=== PATIENT | male | born 1980 | race African-American/Black ===

== ENCOUNTER 2017-09-21 13:45 | Observation (INO) | payer OTHER ==
--- NOTE | 2017-09-21 14:13 | ED ---
General Adult HPI - General Source: patient, RN notes reviewed Mode of arrival: ambulatory Limitations: no limitations <Jaya Lopez - Last Filed: 09/21/17 15:26> <Pieter Delarosa - Last Filed: 09/21/17 21:52> - General Chief complaint: Recheck/Abnormal Lab/Rx Stated complaint: Dialysis Treatment Time Seen by Provider: 09/21/17 14:02 - History of Present Illness Initial comments: This a 37 show male presents emergency Department chief complaint of needing dialysis. Patient has not had dialysis in 6 days. Patient states she[facility] been going [facility] since being [facility]. Patient states that he just received a phone call from a social organization professor stating that the dialysis center has been trying to contact him for dialysis. Patient states he was advised to the hospital for dialysis today and outpatient resources. Patient states he feels fine is no specific complaints. He has been on dialysis for 12 years. Patient states he has a port on the right side of his chest. Patient denies any chest pain, shortness breath, headache, dizziness, nausea, vomiting. (Jaya Lopez) - Related Data Home Medications Medication Instructions Recorded Confirmed Cinacalcet HCl [Sensipar] 60 mg PO HS 09/21/17 09/21/17 Folic Acid-Vit B Complex-Vit C 1 cap PO DAILY 09/21/17 09/21/17 [Nephrocaps] Sevelamer [Renvela] 3,200 - 4,000 mg PO AC-TID 09/21/17 09/21/17 Allergies Allergy/AdvReac Type Severity Reaction Status Date / Time No Known Allergies Allergy Verified 09/21/17 14:06 Review of Systems ROS Other: All systems not noted in ROS Statement are negative. <Jaya Lopez - Last Filed: 09/21/17 15:26> ROS Other: All systems not noted in ROS Statement are negative. <Pieter Delarosa - Last Filed: 09/21/17 21:52> ROS Statement: Those systems with pertinent positive or pertinent negative responses have been documented in the HPI. Past Medical History Past Medical History: Dialysis, Hypertension, Renal Disease History of Any Multi-Drug Resistant Organisms: None Reported Additional Past Surgical History / Comment(s): fistula Past Psychological History: No Psychological Hx Reported Smoking Status: Current every day smoker Past Alcohol Use History: None Reported Past Drug Use History: None Reported <JohnJaya Slaughter - Last Filed: 09/21/17 15:26> - Past Family History Mother Additional Family Medical History / Comment(s): bronchitis Father Family Medical History: Hypertension <Pieter Delarosa - Last Filed: 09/21/17 21:52> General Exam Limitations: no limitations General appearance: alert, in no apparent distress Head exam: Present: atraumatic, normocephalic, normal inspection ENT exam: Present: normal exam, mucous membranes moist Neck exam: Present: normal inspection. Absent: tenderness, meningismus, lymphadenopathy Respiratory exam: Present: normal lung sounds bilaterally. Absent: respiratory distress, wheezes, rales, rhonchi, stridor Cardiovascular Exam: Present: regular rate, normal rhythm, normal heart sounds. Absent: systolic murmur, diastolic murmur, rubs, gallop, clicks Neurological exam: Present: alert, oriented X3, CN II-XII intact Skin exam: Present: warm, dry, intact, normal color. Absent: rash <Jaya Lopez - Last Filed: 09/21/17 15:26> Vital Signs 09/21/17 09/21/17 13:56 16:20 Temperature 97.8 F 98.0 F Pulse Rate 63 52 L Respiratory 16 18 Rate Blood Pressure 158/101 141/103 O2 Sat by Pulse 99 100 Oximetry Medical Decision Making - Lab Data Result diagrams: 09/21/17 14:21 09/21/17 14:21 <Jaya Lopez - Last Filed: 09/21/17 15:26> - Lab Data Result diagrams: 09/21/17 14:21 09/21/17 14:21 <Pieter Delarosa - Last Filed: 09/21/17 21:52> - Medical Decision Making 31 sexual male with end-stage renal disease. Patient is not hemodialysis in 1 week. Potassium is elevated 6.3. Patient is not hypoxic and not requiring any supplemental oxygen. He will be admitted for urgent hemodialysis. Case discussed with Dr. Leone who will arrange hemodialysis. (Pieter Delarosa) - Lab Data Lab Results 09/21/17 09/21/17 Range/Units 14:21 14:21 WBC 3.3 L (3.8-10.6) k/uL RBC 4.48 (4.30-5.90) m/uL Hgb 14.7 (13.0-17.5) gm/dL Hct 45.0 (39.0-53.0) % MCV 100.4 H (80.0-100.0) fL MCH 32.8 (25.0-35.0) pg MCHC 32.7 (31.0-37.0) g/dL RDW 14.9 (11.5-15.5) % Plt Count 152 (150-450) k/uL Neutrophils % 65 % Lymphocytes % 23 % Monocytes % 6 % Eosinophils % 4 % Basophils % 1 % Neutrophils # 2.1 (1.3-7.7) k/uL Lymphocytes # 0.8 L (1.0-4.8) k/uL Monocytes # 0.2 (0-1.0) k/uL Eosinophils # 0.1 (0-0.7) k/uL Basophils # 0.0 (0-0.2) k/uL Macrocytosis Slight Sodium 140 (137-145) mmol/L Potassium 6.3 H* (3.5-5.1) mmol/L Chloride 102 (98-107) mmol/L Carbon Dioxide 13 L (22-30) mmol/L Anion Gap 25 mmol/L BUN 99 H* (9-20) mg/dL Creatinine 35.72 H* (0.66-1.25) mg/dL Est GFR (CKD-EPI)AfAm 1 (>60 ml/min/1.73 sqM) Est GFR (CKD-EPI)NonAf 1 (>60 ml/min/1.73 sqM) Glucose 83 (74-99) mg/dL Calcium 9.2 (8.4-10.2) mg/dL Phosphorus 6.4 H (2.5-4.5) mg/dL Magnesium 4.6 H (1.6-2.3) mg/dL Total Bilirubin 0.5 (0.2-1.3) mg/dL AST 17 (17-59) U/L ALT 23 (21-72) U/L Alkaline Phosphatase 123 (38-126) U/L Total Protein 6.8 (6.3-8.2) g/dL Albumin 4.3 (3.5-5.0) g/dL Disposition <Dedoe,Jaya M - Last Filed: 09/21/17 15:26> <Pieter Delarosa - Last Filed: 09/21/17 21:52> Clinical Impression: Renal failure, Hyperkalemia, Dialysis patient, noncompliant Disposition: ADMITTED IP TO THIS [facility] Condition: Stable
[2017-09-21 14:29] LABS: Basophils % (A) 1 %; Eosinophils # (A) 0.1 k/uL (0-0.7); Eosinophils % (A) 4 %; HGB 14.7 gm/dL (13.0-17.5); Lymphocytes # (A) 0.8 k/uL (1.0-4.8); Lymphocytes % (A) 23 %; MCH 32.8 pg (25.0-35.0); MCHC 32.7 g/dL (31.0-37.0); MCV 100.4 fL (80.0-100.0); Macrocytosis Slight; Monocytes # (A) 0.2 k/uL (0-1.0); Monocytes % (A) 6 %; Neutrophils # (A) 2.1 k/uL (1.3-7.7); Neutrophils % (A) 65 %; Platelet Count 152 k/uL (150-450); RBC 4.48 m/uL (4.30-5.90); RDW 14.9 % (11.5-15.5); WBC 3.3 k/uL (3.8-10.6)
[2017-09-21 14:43] LABS: Albumin 4.3 g/dL (3.5-5.0); Calcium 9.2 mg/dL (8.4-10.2); Magnesium 4.6 mg/dL (1.6-2.3); Phosphorus 6.4 mg/dL (2.5-4.5); Total Bilirubin 0.5 mg/dL (0.2-1.3); Total Protein 6.8 g/dL (6.3-8.2)
[2017-09-21 15:18] LABS: Potassium 6.3 mmol/L (3.5-5.1)
[2017-09-21 16:22] VITALS: RESP 18
[2017-09-21 18:48] VITALS: BP 149/94; PULSE 51; TEMP 97.5
[2017-09-21] MEDS ORDERED: CINACALCET 30 MG TAB PO SCH (21:00)
[2017-09-22] MEDS ORDERED: SEVELAMER 800 MG TAB PO SCH (07:30)
[2017-09-22] MEDS ORDERED: FOLIC ACID-VIT B COMPLEX-VIT C 1 CAP PO SCH (09:00)
--- NOTE | 2017-09-22 13:35 | HP ---
HISTORY AND PHYSICAL DATE OF ADMISSION: 09/21/2017 CHIEF COMPLAINT: Chronic renal failure and hypertension. HISTORY OF PRESENT ILLNESS: This is the first known admission for this 37-year-old -[place] male. He recently got out of retirement. It sounds as though he was incarcerated in [place] and going to [facility] for dialysis. He showed up at our emergency room for dialysis and had not been dialyzed for 6 or 7 days. There is not a good answer as to why he came to this institution. The etiology of his renal failure is hypertension. REVIEW OF SYSTEMS: He denies neurologic problems, change in vision or hearing, chest pain, shortness of breath, abdominal pain, nausea, vomiting, hematemesis, melena, hematochezia, jaundice, dysuria, pruritus, diabetes, etc. Past medical history, family history, and personal and social histories are all otherwise unremarkable or noncontributory. He is on: 1. Sevelamer 3200 up to 4000 mg 3 times a day. 2. Cinacalcet 60 mg at bedtime. 3. Folic acid. He is NOT ALLERGIC TO ANY MEDICATIONS. The only surgery he has had was development of a shunt in his left arm. He does not smoke. He denies use of drugs or alcohol. In the emergency room his potassium was 6.3. BUN was 99 with a creatinine of 35.72. PHYSICAL EXAMINATION: Blood pressure 158/101 with a pulse of 78, respirations of 35, and he is afebrile. In general he appeared to be slender, in no acute distress. Skin color is normal. Skin is warm and dry. Lymph nodes are not enlarged. Head, ears, eyes, nose, mouth and throat were normal. Neck veins were not distended. Chest was clear to auscultation and percussion. He had a dialysis catheter in the right upper chest. Cardiac exam was normal, with no murmurs or extra sounds. No rubs. Abdomen was soft, nontender. Extremities were normal except for the shunt in the left arm. Neurologically he was intact. IMPRESSION: 1. End-stage renal disease. 2. Hypertension. 3. Hyperkalemia. PLAN: 1. Bed rest. 2. IV fluids. 3. Nephrology consult. 4. Dialysis. MMODL / IJN: [id number] /
--- NOTE | 2017-09-22 17:26 | DS ---
DISCHARGE SUMMARY CHIEF COMPLAINT: Renal failure. HISTORY OF PRESENT ILLNESS AND PHYSICAL EXAMINATION: Details of this man's history and physical can be found in the initial workup. LABORATORY STUDIES: While he was in the hospital he had laboratory studies, details of which can be found in the laboratory section of his chart. COURSE IN THE HOSPITAL: After admission he was placed on bedrest and started on intravenous fluids and was taken to dialysis. After dialysis he signed himself out AGAINST MEDICAL ADVICE. FINAL DIAGNOSES: 1. End-stage renal disease, on dialysis. 2. Hypertension. OPERATIONS: None. CONSULTATIONS: Nephrology. MMODL / IJN: [id number] /
== END 2017-09-21 21:28 | disposition left against medical advice (07) ==
LOC: EC 13:45 → INTOOBSV 15:41 → 6SEL 15:41 → UNDODISIN 21:28
PROVIDERS: ADMIT Family Medicine; ATTEND Family Medicine
PROC: 5A1D70Z Performance of Urinary Filtration, Intermittent, Less than 6 Hours Per Day (ICD-10-PCS; principal; 2017-09-21)
DX: E87.5 Hyperkalemia (principal); N18.6 End stage renal disease; Z91.15 Patient's noncompliance with renal dialysis; I12.0 Hypertensive chronic kidney disease with stage 5 chronic kidney disease or end stage renal disease; F17.200 Nicotine dependence, unspecified, uncomplicated; Z99.2 Dependence on renal dialysis; Z82.49 Family history of ischemic heart disease and other diseases of the circulatory system; Z82.5 Family history of asthma and other chronic lower respiratory diseases; Z79.899 Other long term (current) drug therapy; Z53.21 Procedure and treatment not carried out due to patient leaving prior to being seen by health care provider; Z95.828 Presence of other vascular implants and grafts
CPT/HCPCS: 90970; 99284; 36415; 80053; 83735; 84100; 85025; 86706; 87340; G0378; 90935

== ENCOUNTER 2017-09-27 08:44 | Observation (INO) | payer OTHER ==
--- NOTE | 2017-09-27 09:38 | ED ---
Recheck HPI - General Chief Complaint: Recheck/Abnormal Lab/Rx Stated Complaint: needs emergency Dialysis Time Seen by Provider: 09/27/17 09:07 Source: patient, RN notes reviewed Mode of arrival: ambulatory Limitations: no limitations - History of Present Illness Initial Comments: 37 year male presents emergency Department with chief complaint of needing dialysis. Patient has been on clams with dialysis he was admitted one week ago for dialysis. He has not received his sense and discharge. He states that he try to go to the clinic to have it done but they're waiting on his hepatitis. Patient states that he feels like he has fluid in his extremities denies any chest pain or shortness breath. Patient states that he otherwise feels normal. does not have a current primary care physician. Patient has been on dialysis for 12 years. Patient states that it was related to hypertension. - Related Data Home Medications Medication Instructions Recorded Confirmed Cinacalcet HCl [Sensipar] 60 mg PO HS 09/21/17 09/27/17 Folic Acid-Vit B Complex-Vit C 1 cap PO DAILY 09/21/17 09/27/17 [Nephrocaps] Sevelamer [Renvela] 3,200 - 4,000 mg PO AC-TID 09/21/17 09/27/17 Allergies Allergy/AdvReac Type Severity Reaction Status Date / Time No Known Allergies Allergy Verified 09/27/17 09:31 Review of Systems ROS Statement: Those systems with pertinent positive or pertinent negative responses have been documented in the HPI. ROS Other: All systems not noted in ROS Statement are negative. Past Medical History Past Medical History: Dialysis, Hypertension, Renal Disease History of Any Multi-Drug Resistant Organisms: None Reported Additional Past Surgical History / Comment(s): fistula/graft lt arm, surgury on kidneys as a child pt not sure exactly what was done, port rt chest Past Anesthesia/Blood Transfusion Reactions: No Reported Reaction Past Psychological History: No Psychological Hx Reported Smoking Status: Current every day smoker Past Alcohol Use History: None Reported Past Drug Use History: Marijuana - Past Family History Mother Additional Family Medical History / Comment(s): bronchitis Father Family Medical History: Hypertension General Exam Limitations: no limitations General appearance: alert, in no apparent distress Head exam: Present: atraumatic, normocephalic, normal inspection Neck exam: Present: normal inspection. Absent: tenderness, meningismus, lymphadenopathy Respiratory exam: Present: normal lung sounds bilaterally. Absent: respiratory distress, wheezes, rales, rhonchi, stridor Cardiovascular Exam: Present: regular rate, normal rhythm, normal heart sounds. Absent: systolic murmur, diastolic murmur, rubs, gallop, clicks GI/Abdominal exam: Present: soft, normal bowel sounds. Absent: distended, tenderness, guarding, rebound, rigid Course Vital Signs 09/27/17 09:02 Temperature 98.2 F Pulse Rate 65 Respiratory 16 Rate Blood Pressure 145/97 O2 Sat by Pulse 100 Oximetry Medical Decision Making - Lab Data Result diagrams: 09/27/17 09:00 09/27/17 09:00 Lab Results 09/27/17 09/27/17 Range/Units 09:00 09:00 WBC 3.7 L (3.8-10.6) k/uL RBC 4.12 L (4.30-5.90) m/uL Hgb 13.3 (13.0-17.5) gm/dL Hct 41.5 (39.0-53.0) % MCV 100.7 H (80.0-100.0) fL MCH 32.3 (25.0-35.0) pg MCHC 32.0 (31.0-37.0) g/dL RDW 15.2 (11.5-15.5) % Plt Count 128 L (150-450) k/uL Neutrophils % 68 % Lymphocytes % 21 % Monocytes % 6 % Eosinophils % 3 % Basophils % 0 % Neutrophils # 2.5 (1.3-7.7) k/uL Lymphocytes # 0.8 L (1.0-4.8) k/uL Monocytes # 0.2 (0-1.0) k/uL Eosinophils # 0.1 (0-0.7) k/uL Basophils # 0.0 (0-0.2) k/uL Macrocytosis Slight Sodium 142 (137-145) mmol/L Potassium 6.4 H* (3.5-5.1) mmol/L Chloride 103 (98-107) mmol/L Carbon Dioxide 18 L (22-30) mmol/L Anion Gap 21 mmol/L BUN 119 H* (9-20) mg/dL Creatinine 33.09 H* (0.66-1.25) mg/dL Est GFR (CKD-EPI)AfAm 2 (>60 ml/min/1.73 sqM) Est GFR (CKD-EPI)NonAf 1 (>60 ml/min/1.73 sqM) Glucose 78 (74-99) mg/dL Calcium 7.3 L (8.4-10.2) mg/dL Phosphorus 7.7 H (2.5-4.5) mg/dL Magnesium 3.9 H (1.6-2.3) mg/dL Total Bilirubin 0.3 (0.2-1.3) mg/dL AST 19 (17-59) U/L ALT 23 (21-72) U/L Alkaline Phosphatase 95 (38-126) U/L Total Protein 5.9 L (6.3-8.2) g/dL Albumin 3.6 (3.5-5.0) g/dL Disposition Clinical Impression: Renal failure, Hyperkalemia, Dialysis patient, noncompliant Disposition: ADMITTED IP TO THIS [facility] Condition: Stable Referrals: None,Stated [Primary Care Provider] - 1-2 days
[2017-09-27 10:18] LABS: Basophils % (A) 0 %; Eosinophils # (A) 0.1 k/uL (0-0.7); Eosinophils % (A) 3 %; HCT 41.5 % (39.0-53.0); HGB 13.3 gm/dL (13.0-17.5); Lymphocytes # (A) 0.8 k/uL (1.0-4.8); Lymphocytes % (A) 21 %; MCH 32.3 pg (25.0-35.0); MCV 100.7 fL (80.0-100.0); Macrocytosis Slight; Mean Platelet Volume 8.4; Monocytes # (A) 0.2 k/uL (0-1.0); Monocytes % (A) 6 %; Neutrophils # (A) 2.5 k/uL (1.3-7.7); Neutrophils % (A) 68 %; Platelet Count 128 k/uL (150-450); RBC 4.12 m/uL (4.30-5.90); RDW 15.2 % (11.5-15.5); WBC 3.7 k/uL (3.8-10.6)
[2017-09-27 10:46] LABS: Albumin 3.6 g/dL (3.5-5.0); Calcium 7.3 mg/dL (8.4-10.2); Magnesium 3.9 mg/dL (1.6-2.3); Phosphorus 7.7 mg/dL (2.5-4.5); Total Bilirubin 0.3 mg/dL (0.2-1.3); Total Protein 5.9 g/dL (6.3-8.2)
[2017-09-27 11:16] LABS: Potassium 6.4 mmol/L (3.5-5.1)
[2017-09-27 12:00] VITALS: RESP 18
[2017-09-27] MEDS ORDERED: INSULIN REGULAR 100 UNIT/ML VIAL IV ONE (14:12)
[2017-09-27] MEDS ORDERED: CALCIUM CHLORIDE 1,000 MG in SODIUM CHLORIDE 0.9% 100 ML IVPB STA (14:15)
[2017-09-27] MEDS ORDERED: DEXTROSE 50%-WATER 50 ML SYRINGE IVP STA (14:15)
[2017-09-27 14:43] VITALS: BP 141/84; PULSE 61; TEMP 98.6
[2017-09-27] MEDS ORDERED: HEPARIN SODIUM,PORCINE 5,000 UNIT/ML 1 ML VIAL SQ SCH (16:00)
[2017-09-27] MEDS ORDERED: SEVELAMER 800 MG TAB PO SCH (17:30)
[2017-09-27] MEDS ORDERED: CINACALCET 30 MG TAB PO SCH (21:00)
--- NOTE | 2017-09-27 23:46 | P.HPIM ---
History of Present Illness H&P Date: 09/27/17 Chief Complaint: Missed dialysis 37 year male with a known history of hypertension, ESRD on hemodialysis, last dialysis on 09/21/2017 as well as nicotine addiction presents emergency Department with chief complaint of needing dialysis. He states that he try to go to the clinic to have it done but they're waiting on his hepatitis. Patient states that he feels like he has fluid in his extremities denies any chest pain or shortness breath. Patient states that he otherwise feels normal. Patient does not have a current primary care physician. Patient has been on dialysis for 12 years. Patient states that it was related to hypertension. Patient is trying to set up his outpatient dialysis. Otherwise no fever no chills. No chest pain. No nausea vomiting or abdominal pain. Patient does not make urine at this time. Patient was found to have hyperkalemia at 6.4 and elevated BUN and creatinine Review of Systems Constitutional: Patient denies any fever or chills . No generalized weakness or weight loss. Abdomen: Patient denied nausea vomiting and diarrhea and abdominal pain. Cardiovascular: Patient denies any chest pain or short of breath no palpitations. Respiratory: patient denied any cough is from production. No shortness of breath Neurologic: Patient denied any numbness or tingling headache. Musculoskeletal: Patient denies any complaints of joint swelling or deformity. Skin: Negative Psychiatric: Negative Endocrine: No heat or cold intolerance. No recent weight gain. Genitourinary: No dysuria or hematuria. All other 14 point ROS negative except the above Past Medical History Past Medical History: Dialysis, Hypertension, Renal Disease Additional Past Medical History / Comment(s): Pt recently admitted to [facility] on 09/21/17 with ESRD, hyperkalemia. Other Hx: Pt states he last had dialysis when hospitalized here at [facility] about 1 week ago. He states that the "place" where he ususally goes for dialysis had not been able to do it because they are waiting for hepatitis labwork. He states he was going to [facility] for his dialysis but lately just going hospital to hospital. History of Any Multi-Drug Resistant Organisms: None Reported Additional Past Surgical History / Comment(s): fistula/graft lt arm, surgury on kidneys as an infant pt not sure exactly what was done, port rt chest placed when his fistula wasn't working. Past Anesthesia/Blood Transfusion Reactions: No Reported Reaction Smoking Status: Current every day smoker - Past Family History Mother Additional Family Medical History / Comment(s): bronchitis Father Family Medical History: Hypertension Medications and Allergies Home Medications Medication Instructions Recorded Confirmed Type Cinacalcet HCl [Sensipar] 60 mg PO HS 09/21/17 09/27/17 History Folic Acid-Vit B Complex-Vit C 1 cap PO DAILY 09/21/17 09/27/17 History [Nephrocaps] Sevelamer [Renvela] 3,200 - 4,000 mg PO AC-TID 09/21/17 09/27/17 History Allergies Allergy/AdvReac Type Severity Reaction Status Date / Time No Known Allergies Allergy Verified 09/27/17 09:31 Physical Exam Vitals: Vital Signs Temp Pulse Pulse Resp BP BP Pulse Ox 09/27/17 14:42 98.6 F 61 18 141/84 98 09/27/17 13:15 98.7 F 57 L 18 143/89 99 09/27/17 12:48 60 18 132/93 100 09/27/17 11:59 60 18 142/94 100 09/27/17 09:02 98.2 F 65 16 145/97 100 Intake and Output 09/27/17 09/27/17 09/27/17 06:59 14:59 22:59 Output Total 0 Balance 0 Output: Urine 0 Other: # Bowel Movements 0 Weight 84 kg PHYSICAL EXAMINATION: Patient is lying in the bed comfortably, no acute distress, awake alert and oriented.. HEENT: Normocephalic. Neck is supple. Pupils reactive. Nostrils clear. Oral cavity is moist. Ears reveal no drainage. Neck reveals no JVD, carotid bruits, or thyromegaly. CHEST EXAMINATION: Trachea is central. Symmetrical expansion. Lung zambrano clear to auscultation and percussion. CARDIAC: Normal S1, S2 with no gallops. No murmurs ABDOMEN: Soft. Bowel sounds normal. No organomegaly. No abdominal bruits. Extremities: Trace pedal edema. No clubbing or cyanosis Neurologically awake, alert, oriented x3 with well-coordinated movements. No focal deficits noted Skin: No rash or skin lesions. Psychiatric: Coperative. Nonsuicidal Musculoskeletal: No joint swelling or deformity. Normal range of motion. Results CBC & Chem 7: 09/27/17 09:00 09/27/17 09:00 Labs: Abnormal Lab Results - Last 24 Hours (Table) 09/27/17 09/27/17 Range/Units 09:00 09:00 WBC 3.7 L (3.8-10.6) k/uL RBC 4.12 L (4.30-5.90) m/uL MCV 100.7 H (80.0-100.0) fL Plt Count 128 L (150-450) k/uL Lymphocytes # 0.8 L (1.0-4.8) k/uL Potassium 6.4 H* (3.5-5.1) mmol/L Carbon Dioxide 18 L (22-30) mmol/L BUN 119 H* (9-20) mg/dL Creatinine 33.09 H* (0.66-1.25) mg/dL Calcium 7.3 L (8.4-10.2) mg/dL Phosphorus 7.7 H (2.5-4.5) mg/dL Magnesium 3.9 H (1.6-2.3) mg/dL Total Protein 5.9 L (6.3-8.2) g/dL Thrombosis Risk Factor Assmnt - DVT/VTE Prophylaxis DVT/VTE Prophylaxis: Pharmacologic Prophylaxis ordered - Choose All That Apply Any of the Below Risk Factors Present?: No Other Risk Factors: No Other congenital or acquired thrombophilia - If yes, enter type in comment: No Thrombosis Risk Factor Assessment Level: Very Low Risk Assessment and Plan Assessment: Hyperkalemia due to missed hemodialysis ESRD on hemodialysis. Last dialysis on 09/21/2017 Hypertensive kidney disease DVT prophylaxis Nicotine addiction Plan: Patient was given calcium gluconate while in the ER. Patient is currently undergoing emergent hemodialysis. Nephrology was consulted. Social work and assistant case manager will be consulted for outpatient hemodialysis set up. Further recommendations based on the clinical course. Time with Patient: Greater than 30
--- NOTE | 2017-09-27 23:47 | P.DS ---
Providers Date of admission: 09/27/17 11:48 Expected date of discharge: 09/27/17 Attending physician: Peng Sheriff Consults: 09/27/17 11:48 Consult Physician Stat Consulting Provider: Darnell Koroma Consult Reason/Comments: Renal failure needs dialysis Do you want consulting provider notified?: Yes Primary care physician: Stated None Hospital Course: Hyperkalemia due to missed hemodialysis ESRD on hemodialysis. Last dialysis on 09/21/2017 Hypertensive kidney disease DVT prophylaxis Nicotine addiction 37 year male with a known history of hypertension, ESRD on hemodialysis, last dialysis on 09/21/2017 as well as nicotine addiction presents emergency Department with chief complaint of needing dialysis. He states that he try to go to the clinic to have it done but they're waiting on his hepatitis. Patient states that he feels like he has fluid in his extremities denies any chest pain or shortness breath. Patient states that he otherwise feels normal. Patient does not have a current primary care physician. Patient has been on dialysis for 12 years. Patient states that it was related to hypertension. Patient is trying to set up his outpatient dialysis. Otherwise no fever no chills. No chest pain. No nausea vomiting or abdominal pain. Patient does not make urine at this time. Patient was found to have hyperkalemia at 6.4 and elevated BUN and creatinine. Patient was given calcium gluconate while in the ER. Patient had emergent hemodialysis. Nephrology was consulted. Social work and patient case coordinator will be consulted for outpatient hemodialysis set up. Patient left AGAINST MEDICAL ADVICE after hemodialysis. Patient Condition at Discharge: Stable Plan - Discharge Summary Discharge Rx Participant: No New Discharge Prescriptions: No Action Sevelamer [Renvela] 3,200 - 4,000 mg PO AC-TID Folic Acid-Vit B Complex-Vit C [Nephrocaps] 1 cap PO DAILY Cinacalcet HCl [Sensipar] 60 mg PO HS Discharge Medication List Cinacalcet HCl [Sensipar] 60 mg PO HS 09/21/17 [History] Folic Acid-Vit B Complex-Vit C [Nephrocaps] 1 cap PO DAILY 09/21/17 [History] Sevelamer [Renvela] 3,200 - 4,000 mg PO AC-TID 09/21/17 [History] Follow up Appointment(s)/Referral(s): None,Stated [Primary Care Provider] - 1-2 days Discharge Disposition: Left Against Medical Advice
[2017-09-28] MEDS ORDERED: FOLIC ACID-VIT B COMPLEX-VIT C 1 CAP PO SCH (09:00)
== END 2017-09-27 18:51 | disposition left against medical advice (07) ==
LOC: EC 08:44 → 4MS4W 11:48 → INTOOBSV 11:48 → UNDODISIN 18:51
PROVIDERS: ADMIT Hospitalist; ATTEND Hospitalist
PROC: 5A1D70Z Performance of Urinary Filtration, Intermittent, Less than 6 Hours Per Day (ICD-10-PCS; principal; 2017-09-27)
DX: E87.5 Hyperkalemia (principal); N18.6 End stage renal disease; I12.0 Hypertensive chronic kidney disease with stage 5 chronic kidney disease or end stage renal disease; F17.200 Nicotine dependence, unspecified, uncomplicated; K75.9 Inflammatory liver disease, unspecified; Z82.49 Family history of ischemic heart disease and other diseases of the circulatory system; Z82.5 Family history of asthma and other chronic lower respiratory diseases; Z91.15 Patient's noncompliance with renal dialysis; Z99.2 Dependence on renal dialysis; Z79.899 Other long term (current) drug therapy; Z53.21 Procedure and treatment not carried out due to patient leaving prior to being seen by health care provider
CPT/HCPCS: 90970; 96365; 96375; 99284; 36415; 80053; 83735; 84100; 85025; G0378; 90935

== ENCOUNTER 2017-09-30 11:08 | Inpatient (IN) | payer OTHER ==
[2017-09-30 12:38] LABS: Basophils % (A) 0 %; Eosinophils # (A) 0.2 k/uL (0-0.7); Eosinophils % (A) 5 %; HGB 12.9 gm/dL (13.0-17.5); Lymphocytes # (A) 0.8 k/uL (1.0-4.8); Lymphocytes % (A) 18 %; MCH 32.1 pg (25.0-35.0); MCHC 31.5 g/dL (31.0-37.0); Macrocytosis Slight; Mean Platelet Volume 8.3; Monocytes # (A) 0.3 k/uL (0-1.0); Monocytes % (A) 6 %; Neutrophils # (A) 3.1 k/uL (1.3-7.7); Neutrophils % (A) 69 %; Platelet Count 105 k/uL (150-450); RBC 4.02 m/uL (4.30-5.90); RDW 15.2 % (11.5-15.5); WBC 4.5 k/uL (3.8-10.6)
[2017-09-30 12:46] LABS: Albumin 3.6 g/dL (3.5-5.0); Calcium 7.3 mg/dL (8.4-10.2); Total Bilirubin 0.3 mg/dL (0.2-1.3); Total Protein 5.9 g/dL (6.3-8.2)
--- NOTE | 2017-09-30 12:47 | XR ---
EXAMINATION TYPE: XR chest 2V DATE OF EXAM: 09/30/2017 COMPARISON: NONE TECHNIQUE: PA and lateral views submitted. HISTORY: Shortness of breath FINDINGS: Right-sided dialysis catheter the tip overlying the right atrium. No pneumothorax. Vascular stents on the left noted. Tiny bilateral effusion suspected with mild central interstitial v enous congestion. No focal pneumonia. Heart size within normal limits. IMPRESSION: 1. Tiny bilateral pleural effusions. Correlate for mild central venous congestion.
--- NOTE | 2017-09-30 13:51 | ED ---
General Adult HPI - General Chief complaint: Recheck/Abnormal Lab/Rx Stated complaint: Fluid Retention Time Seen by Provider: 09/30/17 11:28 Source: patient Mode of arrival: ambulatory Limitations: no limitations - History of Present Illness Initial comments: 37 years old male comes in with a renal failure he feels that he has a lot of for fluid retention he is requesting dialysis he does get dialysis 3 times a week for lost time he had a dialysis that was on he feels he is retaining a lot of fluids and is complaining that he has difficulty breathing. He denies any fever no chills no headaches no neck stiffness no chest pain he is short-winded no abdominal pain no frequency urgency dysuria - Related Data Home Medications Medication Instructions Recorded Confirmed Cinacalcet HCl [Sensipar] 60 mg PO HS 09/21/17 09/30/17 Folic Acid-Vit B Complex-Vit C 1 cap PO DAILY 09/21/17 09/30/17 [Nephrocaps] Sevelamer [Renvela] 3,200 - 4,000 mg PO AC-TID 09/21/17 09/30/17 Allergies Allergy/AdvReac Type Severity Reaction Status Date / Time No Known Allergies Allergy Verified 09/30/17 12:25 Review of Systems ROS Statement: Those systems with pertinent positive or pertinent negative responses have been documented in the HPI. ROS Other: All systems not noted in ROS Statement are negative. Past Medical History Past Medical History: Dialysis, Hypertension, Renal Disease Additional Past Medical History / Comment(s): Pt recently admitted to [facility] on 09/21/17 with ESRD, hyperkalemia. Other Hx: Pt states he last had dialysis when hospitalized here at [facility] about 1 week ago. He states that the "place" where he ususally goes for dialysis had not been able to do it because they are waiting for hepatitis labwork. He states he was going to [facility] for his dialysis but lately just going hospital to hospital. History of Any Multi-Drug Resistant Organisms: None Reported Additional Past Surgical History / Comment(s): fistula/graft lt arm, surgery on kidneys as an infant pt not sure exactly what was done, port rt chest placed when his fistula wasn't working. Past Anesthesia/Blood Transfusion Reactions: No Reported Reaction Past Psychological History: No Psychological Hx Reported Smoking Status: Current every day smoker - Past Family History Mother Additional Family Medical History / Comment(s): bronchitis Father Family Medical History: Hypertension General Exam - General Exam Comments Initial Comments: General: The patient is awake and alert, in no distress, and does not appear acutely ill. Skin: Skin is warm and dry and no rashes or lesions are noted. Eye: Pupils are equal, round and reactive to light, extra-ocular movements are intact; there is normal conjunctiva bilaterally. Ears, nose, mouth and throat: There are moist mucous membranes and no oral lesions. Neck: The neck is supple, there is no tenderness or JVD. Cardiovascular: There is a regular rate and rhythm. No murmur, rub or gallop is appreciated. Respiratory: To auscultation bilateral, no wheezing no rhonchi no distress respiratory martinez noticed Gastrointestinal: Soft, non-distended, non-tender abdomen without masses or organomegaly noted. There is no rebound or guarding present. Bowel sounds are unremarkable. Back: There is no tenderness to palpation in the midline. There is no obvious deformity. Musculoskeletal: Normal ROM, no tenderness, There is no pedal edema. There is no calf tenderness or swelling. No cords were appreciated. Neurological: CN II-XII intact, Cranial nerves III through XII are intact. There are no obvious motor or sensory deficits. Coordination appears grossly intact. Speech is normal. Psychiatric: Cooperative, appropriate mood & affect, normal judgment. Limitations: no limitations Course Vital Signs 09/30/17 09/30/17 11:18 13:34 Temperature 98.3 F Pulse Rate 72 63 Respiratory 18 15 Rate Blood Pressure 151/91 148/89 O2 Sat by Pulse 99 98 Oximetry Medical Decision Making - Lab Data Result diagrams: 09/30/17 12:26 09/30/17 13:42 Lab Results 09/30/17 09/30/17 09/30/17 Range/Units 12:26 12:26 13:42 WBC 4.5 (3.8-10.6) k/uL RBC 4.02 L (4.30-5.90) m/uL Hgb 12.9 L (13.0-17.5) gm/dL Hct 41.0 (39.0-53.0) % MCV 102.0 H (80.0-100.0) fL MCH 32.1 (25.0-35.0) pg MCHC 31.5 (31.0-37.0) g/dL RDW 15.2 (11.5-15.5) % Plt Count 105 L (150-450) k/uL Neutrophils % 69 % Lymphocytes % 18 % Monocytes % 6 % Eosinophils % 5 % Basophils % 0 % Neutrophils # 3.1 (1.3-7.7) k/uL Lymphocytes # 0.8 L (1.0-4.8) k/uL Monocytes # 0.3 (0-1.0) k/uL Eosinophils # 0.2 (0-0.7) k/uL Basophils # 0.0 (0-0.2) k/uL Macrocytosis Slight Sodium 145 (137-145) mmol/L Potassium 7.0 H* 7.2 H* (3.5-5.1) mmol/L Chloride 107 (98-107) mmol/L Carbon Dioxide 20 L (22-30) mmol/L Anion Gap 18 mmol/L BUN 104 H* (9-20) mg/dL Creatinine 26.72 H* (0.66-1.25) mg/dL Est GFR (CKD-EPI)AfAm 2 (>60 ml/min/1.73 sqM) Est GFR (CKD-EPI)NonAf 2 (>60 ml/min/1.73 sqM) Glucose 75 (74-99) mg/dL Calcium 7.3 L (8.4-10.2) mg/dL Total Bilirubin 0.3 (0.2-1.3) mg/dL AST 18 (17-59) U/L ALT 24 (21-72) U/L Alkaline Phosphatase 99 (38-126) U/L Total Protein 5.9 L (6.3-8.2) g/dL Albumin 3.6 (3.5-5.0) g/dL Critical Care Time Total Critical Care Time: 30 Critical Care Time: 37 years old male with the history of renal failure on dialysis last dialysis was on centered with the fluid accumulation and shortness of breath and creatinine and now was 26 BUN is 1 of 4 noticed that potassium was 7 potassium was repeated repeat potassium was 7.2 KG had a poor T waves in all the chest leads from V1 to V6 QRS complex was 92 ventricular rate is 58 OR interval is 180 QT/QTc is 420/412 and noticed him inversion in aVL no ST elevation or ST depression noticed in the rest of the leads but considering confirmed hyperkalemia patient was giving given calcium chloride 10% IV along with the sodium bicarb 1 ampule Kayexalate 45 g by mouth albuterol 5 mg nebs insulin 8 units IV along with dextrose 50 one ampule will repeat his potassium in about an hour he be admitted to Dr. Sheriff service with the Dr. Leone consult Disposition Clinical Impression: Renal failure, Hyperkalemia Disposition: ADMITTED IP TO THIS HOSP Referrals: Raf Shane MD [Primary Care Provider] - 1-2 days
[2017-09-30] MEDS ORDERED: CALCIUM CHLORIDE 100 MG/ML 10 ML SYRINGE IVP STA (14:12)
[2017-09-30] MEDS ORDERED: SODIUM BICARB 8.4% 50 ML SYR (1 MEQ/ML) IV ONE (14:12)
[2017-09-30] MEDS ORDERED: ALBUTEROL NEBULIZED (CONC) 5 MG, SODIUM CHLORIDE 0.9% NEBULIZ 3 ML INHALATION STA ×2 (14:14)
[2017-09-30] MEDS ORDERED: SODIUM POLYSTYRENE SULFONATE 15 GM/60 ML BOTTLE PO STA (14:14)
[2017-09-30] MEDS ORDERED: INSULIN REGULAR 100 UNIT/ML VIAL IV ONE (14:15)
[2017-09-30] MEDS ORDERED: DEXTROSE 50%-WATER 50 ML SYRINGE IVP STA (14:16)
[2017-09-30] MEDS ORDERED: ALBUTEROL NEBULIZED 2.5 MG/3 ML INHALATION STA (14:31)
[2017-09-30 15:53] VITALS: TEMP 98.2
[2017-09-30 17:29] VITALS: RESP 18; BMI 26.4
[2017-09-30] MEDS ORDERED: SEVELAMER 800 MG TAB PO SCH (17:30)
[2017-09-30 20:51] VITALS: BP 158/87; PULSE 61
[2017-09-30] MEDS ORDERED: CINACALCET 30 MG TAB PO SCH (21:00)
[2017-10-01] MEDS ORDERED: FOLIC ACID-VIT B COMPLEX-VIT C 1 CAP PO SCH (12:00)
--- NOTE | 2017-10-01 23:19 | P.HPIM ---
History of Present Illness H&P Date: 09/30/17 Chief Complaint: Missed hemodialysis 37 year male with a known history of hypertension, ESRD on hemodialysis, last dialysis on 09/27/2017 as well as nicotine addiction presents emergency Department with chief complaint of needing dialysis. He states that he try to go to the clinic to have it done but they're waiting on his hepatitis. Patient states that he feels like he has fluid in his extremities denies any chest pain or shortness breath. Patient states that he otherwise feels normal. Patient does not have a current primary care physician. Patient has been on dialysis for 12 years. Patient states that it was related to hypertension. Patient is trying to set up his outpatient dialysis. Otherwise no fever no chills. No chest pain. No nausea vomiting or abdominal pain. Patient does not make urine at this time. Patient was found to have hyperkalemia at 7.0 and elevated BUN and creatinine Chest x-ray showed bilateral small pleural effusions and correlate for vascular congestion Review of Systems Constitutional: Patient denies any fever or chills . No generalized weakness or weight loss. Abdomen: Patient denied nausea vomiting and diarrhea and abdominal pain. Cardiovascular: Patient denies any chest pain or short of breath no palpitations. Respiratory: patient denied any cough is from production. No shortness of breath Neurologic: Patient denied any numbness or tingling headache. Musculoskeletal: Patient denies any complaints of joint swelling or deformity. Skin: Negative Psychiatric: Negative Endocrine: No heat or cold intolerance. No recent weight gain. Genitourinary: No dysuria or hematuria. All other 14 point ROS negative except the above Past Medical History Past Medical History: Dialysis, Hypertension, Renal Disease Additional Past Medical History / Comment(s): . History of Any Multi-Drug Resistant Organisms: None Reported Additional Past Surgical History / Comment(s): fistula/graft lt arm, surgery on kidneys as an pt not sure exactly what was done, port rt chest placed when his fistula wasn't working. Past Anesthesia/Blood Transfusion Reactions: No Reported Reaction Past Psychological History: No Psychological Hx Reported Additional Psychological History / Comment(s): Pt resides with his mother. He uses no assistive device. He does not drive, his girlfriend takes him to appts. Smoking Status: Current every day smoker Past Alcohol Use History: None Reported Additional Past Alcohol Use History / Comment(s): Started smoking at ge 16, smokes 2-3 cigs per day Past Drug Use History: Marijuana Additional Drug Use History / Comment(s): Smokes marijuana daily-1 joint a day - Past Family History Mother Additional Family Medical History / Comment(s): bronchitis Father Family Medical History: Hypertension Medications and Allergies Home Medications Medication Instructions Recorded Confirmed Type Cinacalcet HCl [Sensipar] 60 mg PO HS 09/21/17 09/30/17 History Folic Acid-Vit B Complex-Vit C 1 cap PO DAILY 09/21/17 09/30/17 History [Nephrocaps] Sevelamer [Renvela] 3,200 - 4,000 mg PO AC-TID 09/21/17 09/30/17 History Allergies Allergy/AdvReac Type Severity Reaction Status Date / Time No Known Allergies Allergy Verified 09/30/17 12:25 Physical Exam Vitals: Vital Signs Temp Pulse Pulse Resp BP BP Pulse Ox 09/30/17 16:13 70 18 145/96 100 09/30/17 15:52 98.2 F 09/30/17 15:24 65 16 166/80 99 09/30/17 14:47 97.9 F 59 L 16 147/96 99 09/30/17 14:46 67 09/30/17 14:36 68 09/30/17 13:34 63 15 148/89 98 09/30/17 11:18 98.3 F 72 18 151/91 99 Intake and Output 09/30/17 09/30/17 09/30/17 06:59 14:59 22:59 Intake Total 240 Balance 240 Intake: Oral 240 Other: Weight 86.183 kg 86.183 kg PHYSICAL EXAMINATION: Patient is lying in the bed comfortably, no acute distress, awake alert and oriented.. HEENT: Normocephalic. Neck is supple. Pupils reactive. Nostrils clear. Oral cavity is moist. Ears reveal no drainage. Neck reveals no JVD, carotid bruits, or thyromegaly. CHEST EXAMINATION: Trachea is central. Symmetrical expansion. Lung zambrano clear to auscultation and percussion. CARDIAC: Normal S1, S2 with no gallops. No murmurs ABDOMEN: Soft. Bowel sounds normal. No organomegaly. No abdominal bruits. Extremities: reveal no edema. Left upper activity graft. Right subclavian permacath. No clubbing or cyanosis Neurologically awake, alert, oriented x3 with well-coordinated movements. No focal deficits noted Skin: No rash or skin lesions. Psychiatric: Coperative. Nonsuicidal Musculoskeletal: No joint swelling or deformity. Normal range of motion. Results CBC & Chem 7: 09/30/17 12:26 09/30/17 16:31 Labs: Abnormal Lab Results - Last 24 Hours (Table) 09/30/17 09/30/17 09/30/17 Range/Units 12:26 12:26 13:42 RBC 4.02 L (4.30-5.90) m/uL Hgb 12.9 L (13.0-17.5) gm/dL MCV 102.0 H (80.0-100.0) fL Plt Count 105 L (150-450) k/uL Lymphocytes # 0.8 L (1.0-4.8) k/uL Potassium 7.0 H* 7.2 H* (3.5-5.1) mmol/L Carbon Dioxide 20 L (22-30) mmol/L BUN 104 H* (9-20) mg/dL Creatinine 26.72 H* (0.66-1.25) mg/dL Calcium 7.3 L (8.4-10.2) mg/dL Total Protein 5.9 L (6.3-8.2) g/dL 09/30/17 Range/Units 16:31 RBC (4.30-5.90) m/uL Hgb (13.0-17.5) gm/dL MCV (80.0-100.0) fL Plt Count (150-450) k/uL Lymphocytes # (1.0-4.8) k/uL Potassium 5.3 H (3.5-5.1) mmol/L Carbon Dioxide (22-30) mmol/L BUN (9-20) mg/dL Creatinine (0.66-1.25) mg/dL Calcium (8.4-10.2) mg/dL Total Protein (6.3-8.2) g/dL Thrombosis Risk Factor Assmnt - DVT/VTE Prophylaxis DVT/VTE Prophylaxis: Pharmacologic Prophylaxis ordered Assessment and Plan Assessment: Hyperkalemia due to missed hemodialysis Fluid load secondary to missed dialysis ESRD on hemodialysis. Last dialysis on 09/21/2017 Hypertensive kidney disease DVT prophylaxis Nicotine addiction Plan: Patient was given calcium gluconate , insulin/dextrose, sodium bicarbonate and Kayexalate was given. Patient is being arranged for emergent dialysis.. Nephrology was consulted. Social work and renal case manager will be consulted for outpatient hemodialysis set up. Further recommendations based on the clinical course. Time with Patient: Greater than 30
--- NOTE | 2017-10-01 23:20 | P.DS ---
Providers Date of admission: 09/30/17 15:43 Expected date of discharge: 10/01/17 Attending physician: Peng Sheriff Consults: 09/30/17 15:35 Consult Physician Stat Consulting Provider: Samantha Leone Consult Reason/Comments: Renal failure, hyperkalemia Do you want consulting provider notified?: Yes Primary care physician: Raf Shane Hospital Course: Patient left AGAINST MEDICAL ADVICE. Please refer to my H&P for full details. Patient Condition at Discharge: Serious Plan - Discharge Summary New Discharge Prescriptions: No Action Sevelamer [Renvela] 3,200 - 4,000 mg PO AC-TID Folic Acid-Vit B Complex-Vit C [Nephrocaps] 1 cap PO DAILY Cinacalcet HCl [Sensipar] 60 mg PO HS Discharge Medication List Cinacalcet HCl [Sensipar] 60 mg PO HS 09/21/17 [History] Folic Acid-Vit B Complex-Vit C [Nephrocaps] 1 cap PO DAILY 09/21/17 [History] Sevelamer [Renvela] 3,200 - 4,000 mg PO AC-TID 09/21/17 [History] Follow up Appointment(s)/Referral(s): Raf Shane MD [Primary Care Provider] - 1-2 days Discharge Disposition: Left Against Medical Advice
== END 2017-09-30 23:20 | disposition left against medical advice (07) | DRG 640 ==
LOC: EC 11:08 → 6SEL 15:43
PROVIDERS: ADMIT Hospitalist; ATTEND Hospitalist
DX: E87.5 Hyperkalemia (principal); N18.6 End stage renal disease; I12.0 Hypertensive chronic kidney disease with stage 5 chronic kidney disease or end stage renal disease; F17.200 Nicotine dependence, unspecified, uncomplicated; Z82.49 Family history of ischemic heart disease and other diseases of the circulatory system; Z82.5 Family history of asthma and other chronic lower respiratory diseases; Z99.2 Dependence on renal dialysis; Z79.899 Other long term (current) drug therapy
CPT/HCPCS: 36415; 71046; 80053; 84132; 85025; 93005; 94640; 96374; 96375; 99285

== ENCOUNTER 2017-10-02 22:57 | Observation (INO) | payer OTHER ==
[2017-10-02 23:49] LABS: Basophils % (A) 0 %; Eosinophils # (A) 0.2 k/uL (0-0.7); Eosinophils % (A) 3 %; HCT 36.9 % (39.0-53.0); HGB 11.9 gm/dL (13.0-17.5); Lymphocytes # (A) 0.8 k/uL (1.0-4.8); Lymphocytes % (A) 15 %; MCH 32.7 pg (25.0-35.0); MCHC 32.1 g/dL (31.0-37.0); MCV 101.7 fL (80.0-100.0); Macrocytosis Slight; Mean Platelet Volume 8.6; Monocytes # (A) 0.3 k/uL (0-1.0); Monocytes % (A) 6 %; Neutrophils # (A) 4.2 k/uL (1.3-7.7); Neutrophils % (A) 75 %; Platelet Count 124 k/uL (150-450); RBC 3.62 m/uL (4.30-5.90); RDW 15.2 % (11.5-15.5); WBC 5.6 k/uL (3.8-10.6)
[2017-10-02 23:58] LABS: INR 1.1 (<1.2); Partial Thromboplastin Time 25.4 sec (22.0-30.0); Prothrombin Time 10.5 sec (9.0-12.0)
[2017-10-03 00:01] LABS: Albumin 3.7 g/dL (3.5-5.0); Calcium 7.6 mg/dL (8.4-10.2); Magnesium 3.5 mg/dL (1.6-2.3); Potassium 6.1 mmol/L (3.5-5.1); Total Bilirubin 0.4 mg/dL (0.2-1.3); Total Protein 5.9 g/dL (6.3-8.2)
--- NOTE | 2017-10-03 00:10 | XR ---
EXAMINATION TYPE: XR chest 2V DATE OF EXAM: 10/03/2017 COMPARISON: 09/30/2017 HISTORY: Syncope TECHNIQUE: Frontal and lateral views of the chest are obtained. FINDINGS: Heart and mediastinum are normal. Lungs are clear. Diaphragm is normal. There is right gurjit tral venous catheter with tip in the right atrium. There is no pleural effusion. Bony thorax is intac t. There is left axillary stent noted. IMPRESSION: No active cardiopulmonary disease. No change.
--- NOTE | 2017-10-03 00:11 | CT ---
EXAMINATION TYPE: CT brain wo con DATE OF EXAM: 10/03/2017 COMPARISON: NONE HISTORY: syncope CT DLP: 1121 mGycm. Automated Exposure Control for Dose Reduction was Utilized. TECHNIQUE: CT scan of the head is performed without contrast. FINDINGS: Ventricles and sulci appear normal. There is no mass effect nor midline shift. There is n o sign of intracranial hemorrhage. The calvarium is intact. IMPRESSION: Negative CT scan of the brain..
[2017-10-03 00:25] LABS: Troponin I 0.015 ng/mL (0.000-0.034)
[2017-10-03 00:27] LABS: Creatine Kinase MB 2.6 ng/mL (0.0-2.4)
--- NOTE | 2017-10-03 00:34 | ED ---
Syncope HPI - General Chief Complaint: Syncope Stated Complaint: syncope Time Seen by Provider: 10/02/17 23:00 Source: patient, EMS, RN notes reviewed, old records reviewed Mode of arrival: EMS Limitations: no limitations - History of Present Illness Initial Comments: This is a 37-year-old male history of chronic renal failure who apparently had a syncopal episode while at home he states he believes he hit his head he is not sure how long he was out for he complains some right-sided scalp pain he was brought in by EMS. He also states he has had dialysis for a week. He believes he does needed. He denies any chest pain at this time fevers chills nausea vomiting sweats. He does state he was admitted recently but he has Aleve before dialysis could be done due to a family emergency. He does state he is from [facility] and try to relocate here has not gotten outpatient clinic set up for his dialysis. MD Complaint: loss of consciousness - Related Data Home Medications Medication Instructions Recorded Confirmed Cinacalcet HCl [Sensipar] 60 mg PO HS 09/21/17 10/02/17 Folic Acid-Vit B Complex-Vit C 1 cap PO DAILY 09/21/17 10/02/17 [Nephrocaps] Sevelamer [Renvela] 3,200 - 4,000 mg PO AC-TID 09/21/17 10/02/17 Allergies Allergy/AdvReac Type Severity Reaction Status Date / Time No Known Allergies Allergy Verified 10/02/17 23:15 Review of Systems ROS Statement: Those systems with pertinent positive or pertinent negative responses have been documented in the HPI. ROS Other: All systems not noted in ROS Statement are negative. Past Medical History Past Medical History: Dialysis, Hypertension, Renal Disease Additional Past Medical History / Comment(s): . History of Any Multi-Drug Resistant Organisms: None Reported Additional Past Surgical History / Comment(s): fistula/graft lt arm, surgery on kidneys as an pt not sure exactly what was done, port rt chest placed when his fistula wasn't working. Past Anesthesia/Blood Transfusion Reactions: No Reported Reaction Past Psychological History: No Psychological Hx Reported Smoking Status: Current every day smoker Past Alcohol Use History: None Reported Past Drug Use History: Marijuana - Past Family History Mother Additional Family Medical History / Comment(s): bronchitis Father Family Medical History: Hypertension General Exam - General Exam Comments Initial Comments: This is a well-developed well-nourished awake alert oriented 3 male Vivian Coma Scale of 15 Limitations: no limitations General appearance: alert, in no apparent distress Head exam: Present: atraumatic, normocephalic, normal inspection Eye exam: Present: normal appearance, PERRL, EOMI. Absent: scleral icterus, conjunctival injection, periorbital swelling ENT exam: Present: normal exam, mucous membranes moist Neck exam: Present: normal inspection. Absent: tenderness, meningismus, lymphadenopathy Respiratory exam: Present: normal lung sounds bilaterally, other (There is a dialysis catheter noted in the right upper chest wall.). Absent: respiratory distress, wheezes, rales, rhonchi, stridor Cardiovascular Exam: Present: regular rate, normal rhythm, normal heart sounds. Absent: systolic murmur, diastolic murmur, rubs, gallop, clicks GI/Abdominal exam: Present: soft, normal bowel sounds. Absent: distended, tenderness, guarding, rebound, rigid Extremities exam: Present: normal inspection, full ROM, normal capillary refill. Absent: tenderness, pedal edema, joint swelling, calf tenderness Back exam: Present: normal inspection Neurological exam: Present: alert, oriented X3, CN II-XII intact Psychiatric exam: Present: normal affect, normal mood Skin exam: Present: warm, dry, intact, normal color. Absent: rash Course Vital Signs 10/02/17 23:00 Temperature 98.6 F Pulse Rate 85 Respiratory 18 Rate Blood Pressure 149/95 O2 Sat by Pulse 95 Oximetry - Reevaluation(s) Reevaluation #1: 10/03/17 00:42 The patient is refusing an IV has agreed to get blood drawn. EKG Findings - EKG Results: EKG: interpreted by ERMD, sinus rhythm (Normal sinus rhythm rate is 69. Interval 172 QRS duration 92 QT since QTC 394/[address]-T wave changes.) Medical Decision Making - Medical Decision Making I did discuss findings with the patient and with Dr. Gordon. Patient states is his new PCP patient will be admitted with consult to Dr. Leone in the a.m. for dialysis - Lab Data Result diagrams: 10/02/17 23:32 10/02/17 23:32 Lab Results 10/02/17 10/02/17 10/02/17 Range/Units 23:32 23:32 23:32 WBC 5.6 (3.8-10.6) k/uL RBC 3.62 L (4.30-5.90) m/uL Hgb 11.9 L (13.0-17.5) gm/dL Hct 36.9 L (39.0-53.0) % MCV 101.7 H (80.0-100.0) fL MCH 32.7 (25.0-35.0) pg MCHC 32.1 (31.0-37.0) g/dL RDW 15.2 (11.5-15.5) % Plt Count 124 L (150-450) k/uL Neutrophils % 75 % Lymphocytes % 15 % Monocytes % 6 % Eosinophils % 3 % Basophils % 0 % Neutrophils # 4.2 (1.3-7.7) k/uL Lymphocytes # 0.8 L (1.0-4.8) k/uL Monocytes # 0.3 (0-1.0) k/uL Eosinophils # 0.2 (0-0.7) k/uL Basophils # 0.0 (0-0.2) k/uL Macrocytosis Slight PT (9.0-12.0) sec INR (<1.2) APTT (22.0-30.0) sec Sodium (137-145) mmol/L Potassium (3.5-5.1) mmol/L Chloride (98-107) mmol/L Carbon Dioxide (22-30) mmol/L Anion Gap mmol/L BUN (9-20) mg/dL Creatinine (0.66-1.25) mg/dL Est GFR (CKD-EPI)AfAm (>60 ml/min/1.73 sqM) Est GFR (CKD-EPI)NonAf (>60 ml/min/1.73 sqM) Glucose (74-99) mg/dL Calcium (8.4-10.2) mg/dL Magnesium (1.6-2.3) mg/dL Total Bilirubin (0.2-1.3) mg/dL AST (17-59) U/L ALT (21-72) U/L Alkaline Phosphatase (38-126) U/L Total Creatine Kinase 579 H (55-170) U/L CK-MB (CK-2) 2.6 H* (0.0-2.4) ng/mL CK-MB (CK-2) Rel Index 0.4 Troponin I 0.015 (0.000-0.034) ng/mL NT-Pro-B Natriuret Pep 36408 pg/mL Total Protein (6.3-8.2) g/dL Albumin (3.5-5.0) g/dL 10/02/17 10/02/17 Range/Units 23:32 23:32 WBC (3.8-10.6) k/uL RBC (4.30-5.90) m/uL Hgb (13.0-17.5) gm/dL Hct (39.0-53.0) % MCV (80.0-100.0) fL MCH (25.0-35.0) pg MCHC (31.0-37.0) g/dL RDW (11.5-15.5) % Plt Count (150-450) k/uL Neutrophils % % Lymphocytes % % Monocytes % % Eosinophils % % Basophils % % Neutrophils # (1.3-7.7) k/uL Lymphocytes # (1.0-4.8) k/uL Monocytes # (0-1.0) k/uL Eosinophils # (0-0.7) k/uL Basophils # (0-0.2) k/uL Macrocytosis PT 10.5 (9.0-12.0) sec INR 1.1 (<1.2) APTT 25.4 (22.0-30.0) sec Sodium 144 (137-145) mmol/L Potassium 6.1 H (3.5-5.1) mmol/L Chloride 105 (98-107) mmol/L Carbon Dioxide 18 L (22-30) mmol/L Anion Gap 21 mmol/L BUN 120 H* (9-20) mg/dL Creatinine 30.22 H* (0.66-1.25) mg/dL Est GFR (CKD-EPI)AfAm 2 (>60 ml/min/1.73 sqM) Est GFR (CKD-EPI)NonAf 2 (>60 ml/min/1.73 sqM) Glucose 84 (74-99) mg/dL Calcium 7.6 L (8.4-10.2) mg/dL Magnesium 3.5 H (1.6-2.3) mg/dL Total Bilirubin 0.4 (0.2-1.3) mg/dL AST 20 (17-59) U/L ALT 28 (21-72) U/L Alkaline Phosphatase 99 (38-126) U/L Total Creatine Kinase (55-170) U/L CK-MB (CK-2) (0.0-2.4) ng/mL CK-MB (CK-2) Rel Index Troponin I (0.000-0.034) ng/mL NT-Pro-B Natriuret Pep pg/mL Total Protein 5.9 L (6.3-8.2) g/dL Albumin 3.7 (3.5-5.0) g/dL - Radiology Data Radiology results: report reviewed (I did review the imaging and report no acute findings seen on the CAT scan of the x-ray.), image reviewed Critical Care Time Critical Care Time: Yes Critical Care Time: 31 minutes of critical care time which includes monitoring the EMS run and discussed with paramedics history physical labs x-rays several reevaluation of the patient review of old charting discussed with the admitting physician documentation of the above Disposition Clinical Impression: Vasovagal syncope, Acute on chronic renal failure, Scalp contusion Disposition: ADMITTED IP TO THIS [facility] Condition: Stable Referrals: Vinnie Gordon MD [Primary Care Provider] - 1-2 days
[2017-10-03] MEDS ORDERED: NALOXONE 0.4 MG/ML 1 ML VIAL IV PRN (00:43)
[2017-10-03] MEDS ORDERED: SODIUM POLYSTYRENE SULFONATE 15 GM/60 ML BOTTLE PO ONE (00:48)
[2017-10-03 01:51] VITALS: RESP 18
[2017-10-03] MEDS: SEVELAMER 800 MG TAB PO SCH ×3 (07:26→18:14)
[2017-10-03] MEDS ORDERED: FOLIC ACID-VIT B COMPLEX-VIT C 1 CAP PO SCH (09:00)
[2017-10-03 14:29] VITALS: BP 153/89; PULSE 69; TEMP 98.5
--- NOTE | 2017-10-03 18:16 | HP ---
HISTORY AND PHYSICAL DATE OF SERVICE: 10/03/2017. CHIEF COMPLAINT: Chronic renal failure, end-stage. HISTORY OF PRESENT ILLNESS: This is 37-year-old male wandered back into the emergency room again. He was dialyzed here about a week ago and then signed out. Creatinine is excessively high. He was told that he will require multiple days of dialysis. REVIEW OF SYSTEMS: He denies any symptoms of headache, chest pain, shortness of breath, nausea, itching, etc. PAST MEDICAL HISTORY, FAMILY HISTORY, SOCIAL HISTORY: All otherwise unremarkable and unchanged from his recent admitting summary. LABORATORY DATA: BUN is 120 with a creatinine of 30.22. PHYSICAL EXAM: Blood pressure 155/93 with a pulse of 85, respirations of 36 and he is afebrile. Generally, he appeared to be well developed, well nourished, no acute distress. Head, ears, eyes, nose, mouth, and throat were normal. Neck veins not distended. Thyroid not enlarged. Chest is clear. Cardiac exam is normal. The. Abdomen is soft, nontender. Extremities are normal. Neurological is intact. IMPRESSION: 1. End-stage renal disease. 2. Hypertension. PLAN: 1. Bed rest. 2. Consult with Nephrology. MMODL / IJN: [id number] /
--- NOTE | 2017-10-03 19:02 | CONS ---
CONSULTATION REASON FOR CONSULT: Renal failure. HISTORY OF PRESENT ILLNESS: The patient is a 37-year-old male with end-stage renal disease who has been on hemodialysis for about 10 years now. The patient stated that he had been dialyzing out of the [facility] prior to being incarcerated, where he was dialyzed at the retirement for about 18 months. He is now being released and has moved to the [place] area. He currently has an IJ PermCath. He has had about 2 treatments of hemodialysis in the hospital when he has come in previously. His creatinine is staying at about 30. Potassium was 6.1. His last dialysis was about 1 week ago. The patient does not have much urine output. PAST MEDICAL HISTORY: Hypertension, end-stage renal disease, CKD with mineral-bone disorder. PAST SURGICAL HISTORY: AV fistula left arm with multiple revisions, urological surgery during infancy and IJ PermCath placement. SOCIAL HISTORY: Positive for smoking and history of marijuana use. MEDICATIONS PRIOR TO ADMISSION: Include: 1. Renvela. 2. Nephrocaps. 3. Sensipar. ALLERGIES: None. REVIEW OF SYSTEMS: As per HPI. Other systems negative. EXAMINATION: Patient is comfortable, awake. He is not in any acute distress. He is alert and oriented x3. Blood pressure is 155/93, heart rate 59 per minute. He is afebrile. HEART: S1, S2. LUNGS: Bilateral breath sounds are heard. Abdomen is soft, nontender. Lower extremities show trace edema bilaterally. DEHORNER is grossly intact. LABS: Show sodium 144, potassium 6.1, CO2 is 18, BUN 120, serum creatinine 13.2. Hemoglobin 11.9 g/dL. ASSESSMENT: 1. End-stage renal disease, on hemodialysis for about 10 years now, currently with a right internal jugular PermCath. The patient has a left arm arteriovenous fistula, which has been clotted for about 1-1/2 years now. He needs to be set up as outpatient. I have advised the patient that he may not be able to get in at the [place] unit and may need to be placed at the [facility] unit. However, we are still working on the paperwork. I also asked the patient to stay overnight so that Discharge Planning and Case Management can work with him; however, he states that he has to report for parole and so will not be able to stay overnight. 2. Hyperkalemia associated with end-stage renal disease and not having had regular dialysis. 3. Metabolic acidosis secondary to renal failure. 4. 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 Patient's calcium is low. He would benefit more from Rocaltrol rather than the Sensipar. PLAN: Hemodialysis today. Patient is encouraged to stay to get established at an outpatient unit, whether it is the [facility] unit or the [facility] unit will depend on the continued paperwork which is in progress. Thank you for this consultation. We will continue to follow the patient during his hospitalization. MMODL / IJN: [id number] /
[2017-10-03 19:04] LABS: Hepatitis A Antibody IgM Non-Reactive (Non-Reactive); Hepatitis B Core IgM Non-Reactive (Non-Reactive)
[2017-10-03] MEDS ORDERED: CINACALCET 30 MG TAB PO SCH (21:00)
--- NOTE | 2017-10-04 15:27 | DS ---
DISCHARGE SUMMARY DATE OF ADMISSION: 10/03/17 DATE OF DISCHARGE: 10/03/17 CHIEF COMPLAINT: Chronic renal failure. HISTORY OF PRESENT ILLNESS AND PHYSICAL EXAM: The details of this man's history and physical can be found in the initial workup. LABORATORY STUDIES: While he was in the hospital, he had laboratory studies, details of which can be found in the laboratory section of chart. COURSE IN HOSPITAL: After admission, he was placed on bedrest, started on intravenous fluids and seen by Nephrology. He was dialyzed and then he signed himself out AGAINST MEDICAL ADVICE, which he has done repeatedly. He was warned that one dialysis event was not enough and that he subjects himself to great risk in the likelihood of sudden . MMODL / IJN: [id number] /
== END 2017-10-03 18:57 | disposition left against medical advice (07) ==
LOC: EC 22:57 → INTOOBSV 10-03 00:43 → 4MS4W 10-03 00:43 → UNDODISIN 10-03 18:57
PROVIDERS: ADMIT Family Medicine; ATTEND Family Medicine
PROC: 5A1D70Z Performance of Urinary Filtration, Intermittent, Less than 6 Hours Per Day (ICD-10-PCS; principal; 2017-10-03)
DX: I12.0 Hypertensive chronic kidney disease with stage 5 chronic kidney disease or end stage renal disease (principal); N18.6 End stage renal disease; E87.2 Acidosis; N17.9 Acute kidney failure, unspecified; Z99.2 Dependence on renal dialysis; E87.5 Hyperkalemia; M89.9 Disorder of bone, unspecified; Z79.899 Other long term (current) drug therapy; F17.200 Nicotine dependence, unspecified, uncomplicated; Z91.15 Patient's noncompliance with renal dialysis; Z95.828 Presence of other vascular implants and grafts; Z86.59 Personal history of other mental and behavioral disorders; Z82.49 Family history of ischemic heart disease and other diseases of the circulatory system; Z83.6 Family history of other diseases of the respiratory system
CPT/HCPCS: 99291; 36415; 93005; 83880; 80053; 80074; 82550; 82553; 83735; 84484; 85025; 85610; 85730; 71046; 70450; G0378; 90935

== ENCOUNTER 2017-10-24 11:40 | Inpatient (IN) | payer OTHER ==
[2017-10-24] MEDS ORDERED: ACETAMINOPHEN TAB 500 MG TAB PO STA (12:05)
[2017-10-24] MEDS ORDERED: VANCOMYCIN IV PER PHARMACY 1 EACH MISC MISCELLANE PRN (12:05)
[2017-10-24] MEDS ORDERED: cefTRIAXone IN SWFI 2,000 MG/20 ML SYRINGE IVP STA (12:05)
[2017-10-24] MEDS ORDERED: VANCOMYCIN 1,500 MG in SODIUM CHLORIDE 0.9% 250 ML IVPB STA (12:14)
--- NOTE | 2017-10-24 12:20 | ED ---
General Adult HPI - General Chief complaint: Recheck/Abnormal Lab/Rx Stated complaint: Dialysis Treatment Time Seen by Provider: 10/24/17 12:01 Source: patient Mode of arrival: ambulatory Limitations: no limitations - History of Present Illness Initial comments: 37 years old male comes in requesting dialysis he said he hasn't had any dialysis for the last 5 days unfortunately he had no Sunday to go to dialysis center and 97 he has been coughing and he felt he was feverish but he is not sure he has a fever 100.3 in the ER now area he denies any headache no neck stiffness I am has been coughing no abdominal pain and he does not quite he is on a dialysis no other symptoms or review of system is unremarkable - Related Data Home Medications Medication Instructions Recorded Confirmed Cinacalcet HCl [Sensipar] 60 mg PO HS 09/21/17 10/24/17 Folic Acid-Vit B Complex-Vit C 1 cap PO DAILY 09/21/17 10/24/17 [Nephrocaps] Sevelamer [Renvela] 4,000 mg PO AC-TID 09/21/17 10/24/17 Allergies Allergy/AdvReac Type Severity Reaction Status Date / Time No Known Allergies Allergy Verified 10/24/17 12:53 Review of Systems ROS Statement: Those systems with pertinent positive or pertinent negative responses have been documented in the HPI. ROS Other: All systems not noted in ROS Statement are negative. Past Medical History Past Medical History: Dialysis, Hypertension, Renal Disease Additional Past Medical History / Comment(s): . History of Any Multi-Drug Resistant Organisms: None Reported Additional Past Surgical History / Comment(s): fistula/graft lt arm, surgery on kidneys as an pt not sure exactly what was done, port rt chest placed when his fistula wasn't working. Past Anesthesia/Blood Transfusion Reactions: No Reported Reaction Past Psychological History: No Psychological Hx Reported Smoking Status: Never smoker Past Alcohol Use History: None Reported Past Drug Use History: Marijuana - Past Family History Mother Additional Family Medical History / Comment(s): bronchitis Father Family Medical History: Hypertension General Exam - General Exam Comments Initial Comments: General: The patient is awake and alert, in no distress, and does not appear acutely ill. Skin: Skin is warm and dry and no rashes or lesions are noted. Eye: Pupils are equal, round and reactive to light, extra-ocular movements are intact; there is normal conjunctiva bilaterally. Ears, nose, mouth and throat: There are moist mucous membranes and no oral lesions. Neck: The neck is supple, there is no tenderness or JVD. Cardiovascular: There is a regular rate and rhythm. No murmur, rub or gallop is appreciated. Respiratory: To auscultation bilateral, it is some some secretions while examining his lungs Gastrointestinal: Soft, non-distended, non-tender abdomen without masses or organomegaly noted. There is no rebound or guarding present. Bowel sounds are unremarkable. Back: There is no tenderness to palpation in the midline. There is no obvious deformity. Musculoskeletal: Normal ROM, no tenderness, There is no pedal edema. There is no calf tenderness or swelling. No cords were appreciated. Neurological: CN II-XII intact, Cranial nerves III through XII are intact. There are no obvious motor or sensory deficits. Coordination appears grossly intact. Speech is normal. Psychiatric: Cooperative, appropriate mood & affect, normal judgment. Limitations: no limitations Course Vital Signs 10/24/17 10/24/17 10/24/17 11:48 12:20 12:28 Temperature 100.3 F H 101 F H Pulse Rate 88 89 85 Respiratory 20 20 18 Rate Blood Pressure 176/96 179/104 165/99 O2 Sat by Pulse 96 97 97 Oximetry I noticed a fever of 100.3 recommended that we do the lactic acid and blood cultures since he does not void shona add the chest x-rays and after we draw the blood samples were given some empiric antibiotics, patient did agree for the IV antibiotics, I spoke with the Dr. Leone and he probably needs to dialysis today Medical Decision Making - Lab Data Result diagrams: 10/24/17 12:20 10/24/17 12:20 Lab Results 10/24/17 10/24/17 10/24/17 Range/Units 12:20 12:20 12:20 WBC 5.3 (3.8-10.6) k/uL RBC 3.53 L (4.30-5.90) m/uL Hgb 11.3 L (13.0-17.5) gm/dL Hct 34.6 L (39.0-53.0) % MCV 98.1 (80.0-100.0) fL MCH 32.0 (25.0-35.0) pg MCHC 32.6 (31.0-37.0) g/dL RDW 14.4 (11.5-15.5) % Plt Count 182 (150-450) k/uL Neutrophils % 80 % Lymphocytes % 10 % Monocytes % 6 % Eosinophils % 3 % Basophils % 0 % Neutrophils # 4.3 (1.3-7.7) k/uL Lymphocytes # 0.5 L (1.0-4.8) k/uL Monocytes # 0.3 (0-1.0) k/uL Eosinophils # 0.1 (0-0.7) k/uL Basophils # 0.0 (0-0.2) k/uL PT (9.0-12.0) sec INR (<1.2) APTT (22.0-30.0) sec Sodium 140 (137-145) mmol/L Potassium 5.2 H (3.5-5.1) mmol/L Chloride 96 L (98-107) mmol/L Carbon Dioxide 23 (22-30) mmol/L Anion Gap 21 mmol/L BUN 98 H* (9-20) mg/dL Creatinine 23.90 H* (0.66-1.25) mg/dL Est GFR (CKD-EPI)AfAm 2 (>60 ml/min/1.73 sqM) Est GFR (CKD-EPI)NonAf 2 (>60 ml/min/1.73 sqM) Glucose 121 H (74-99) mg/dL Plasma Lactic Acid Cesar 0.8 (0.7-2.0) mmol/L Calcium 7.2 L (8.4-10.2) mg/dL Total Bilirubin 0.3 (0.2-1.3) mg/dL AST 14 L (17-59) U/L ALT 25 (21-72) U/L Alkaline Phosphatase 101 (38-126) U/L Total Protein 6.1 L (6.3-8.2) g/dL Albumin 3.4 L (3.5-5.0) g/dL 10/24/17 Range/Units 12:20 WBC (3.8-10.6) k/uL RBC (4.30-5.90) m/uL Hgb (13.0-17.5) gm/dL Hct (39.0-53.0) % MCV (80.0-100.0) fL MCH (25.0-35.0) pg MCHC (31.0-37.0) g/dL RDW (11.5-15.5) % Plt Count (150-450) k/uL Neutrophils % % Lymphocytes % % Monocytes % % Eosinophils % % Basophils % % Neutrophils # (1.3-7.7) k/uL Lymphocytes # (1.0-4.8) k/uL Monocytes # (0-1.0) k/uL Eosinophils # (0-0.7) k/uL Basophils # (0-0.2) k/uL PT 10.7 (9.0-12.0) sec INR 1.1 (<1.2) APTT 26.0 (22.0-30.0) sec Sodium (137-145) mmol/L Potassium (3.5-5.1) mmol/L Chloride (98-107) mmol/L Carbon Dioxide (22-30) mmol/L Anion Gap mmol/L BUN (9-20) mg/dL Creatinine (0.66-1.25) mg/dL Est GFR (CKD-EPI)AfAm (>60 ml/min/1.73 sqM) Est GFR (CKD-EPI)NonAf (>60 ml/min/1.73 sqM) Glucose (74-99) mg/dL Plasma Lactic Acid Cesar (0.7-2.0) mmol/L Calcium (8.4-10.2) mg/dL Total Bilirubin (0.2-1.3) mg/dL AST (17-59) U/L ALT (21-72) U/L Alkaline Phosphatase (38-126) U/L Total Protein (6.3-8.2) g/dL Albumin (3.5-5.0) g/dL Disposition Clinical Impression: Renal failure Disposition: ADMITTED IP TO THIS HOSP Condition: Good Referrals: Vinnie Gordon MD [Primary Care Provider] - 1-2 days
[2017-10-24 12:37] LABS: Basophils % (A) 0 %; Eosinophils # (A) 0.1 k/uL (0-0.7); Eosinophils % (A) 3 %; HCT 34.6 % (39.0-53.0); HGB 11.3 gm/dL (13.0-17.5); Lymphocytes # (A) 0.5 k/uL (1.0-4.8); Lymphocytes % (A) 10 %; MCHC 32.6 g/dL (31.0-37.0); MCV 98.1 fL (80.0-100.0); Mean Platelet Volume 8.2; Monocytes # (A) 0.3 k/uL (0-1.0); Monocytes % (A) 6 %; Neutrophils # (A) 4.3 k/uL (1.3-7.7); Neutrophils % (A) 80 %; Platelet Count 182 k/uL (150-450); RBC 3.53 m/uL (4.30-5.90); RDW 14.4 % (11.5-15.5); WBC 5.3 k/uL (3.8-10.6)
[2017-10-24 12:45] LABS: INR 1.1 (<1.2); Prothrombin Time 10.7 sec (9.0-12.0)
[2017-10-24 12:46] LABS: Albumin 3.4 g/dL (3.5-5.0); Calcium 7.2 mg/dL (8.4-10.2); Potassium 5.2 mmol/L (3.5-5.1); Total Bilirubin 0.3 mg/dL (0.2-1.3); Total Protein 6.1 g/dL (6.3-8.2)
[2017-10-24] MEDS ORDERED: SODIUM CHLORIDE 0.9% 1,000 ML IV ONE (13:50)
--- NOTE | 2017-10-24 14:38 | XR ---
EXAMINATION TYPE: XR chest 2V DATE OF EXAM: 10/24/2017 COMPARISON: Prior chest x-ray 10/02/2017 HISTORY: Pain, renal failure TECHNIQUE: Frontal and lateral views of the chest are obtained. FINDINGS: There is no focal air space opacity, pleural effusion, or pneumothorax seen. The cardiac silhouette size is within normal limits. Right jugular central venous catheter is stable, tip is in t he right atrium. There is a left subclavian stent in place. The osseous structures are intact. IMPRESSION: No acute cardiopulmonary process.
[2017-10-24] MEDS ORDERED: LABETALOL 5 MG/ML VIAL MDV IVP PRN (18:12)
[2017-10-24] MEDS ORDERED: amLODIPine 5 MG TAB PO STA (18:15)
--- NOTE | 2017-10-24 18:40 | HP ---
HISTORY AND PHYSICAL CHIEF COMPLAINT: End-stage renal disease, on dialysis. HISTORY OF PRESENT ILLNESS: This is another admission for this gentleman, who is very irresponsible. He does not go to dialysis as an outpatient. He has done this several times, will come in with an exceedingly high creatinine, come in for 1 episode of dialysis and then walk out of the hospital. REVIEW OF SYSTEMS: Other than the lethargy and some nausea is normal. PAST MEDICAL HISTORY, FAMILY HISTORY, SOCIAL HISTORY: All otherwise unremarkable. PHYSICAL EXAMINATION: Blood pressure is 148/95 with a pulse of 73, respirations of 39 and he is afebrile. In general, he appeared to be slender, dehydrated and chronically ill. Head, ears, eyes, nose, mouth, and throat were normal. The neck veins were not distended. The chest is clear. Cardiac is normal. The abdomen is soft, nontender. EXTREMITIES: Normal. IMPRESSION: End-stage renal disease, on dialysis. PLAN: Consult Nephrology for dialysis. MMODL / IJN: [id number] /
[2017-10-24] MEDS: CINACALCET 30 MG TAB PO SCH (20:17)
[2017-10-24] MEDS ORDERED: GENTAMICIN 80 MG in SODIUM CHLORIDE 0.9% 100 ML IVPB ONE (21:00)
[2017-10-24] MEDS: ACETAMINOPHEN TAB 325 MG TAB PO PRN (21:52)
--- NOTE | 2017-10-24 23:37 | CONS ---
CONSULTATION REASON FOR CONSULT: End-stage renal disease. HISTORY OF PRESENT ILLNESS: The patient is a 37-year-old -Israeli male with history of end-stage renal disease, on hemodialysis on a Sunday, Sunday, Sunday schedule at the [facility] dialysis unit. The patient was admitted to the hospital with complaints of weakness, not feeling well. He had low-grade temperature as well. The patient stated he missed his dialysis on Sunday, as he did not have transportation. He was noted to have a serum creatinine of 23.9. The patient was dialyzed today. However, during treatment, he had significant fevers and chills. He has received a dose of vancomycin and Rocephin. Dialysis was terminated and plan is to try dialysis again tomorrow. If the patient continues to be symptomatic, he will need his PermCath removed and new access placed for dialysis. PAST MEDICAL HISTORY: End-stage renal disease, CKD mineral bone disorder, anemia of chronic disease, hypertension. PAST SURGICAL HISTORY: PermCath placement, previous multiple AV fistula of AV graft, urological surgeries during childhood. SOCIAL HISTORY: Negative for smoking. Patient has a history of marijuana use. No history of alcohol abuse. MEDICATIONS AT HOME: Included: 1. Renvela. 2. Sensipar. 3. Nephrocaps. ALLERGIES: None. EXAMINATION: Patient is currently comfortable. He is sleeping, arousable. He is not in any acute distress. Blood pressure is 151/89, heart rate 111 per minute. Patient is afebrile. HEART: S1, S2. LUNGS: Bilateral breath sounds are heard. Abdomen is soft, nontender. Lower extremities show no evidence of edema. AWARD MACHINE OPERATOR is grossly intact. Patient is moving all 4 extremities. LABS: Show sodium 140, potassium 5.2, chloride 96, BUN 98, serum creatinine 3.9. Hemoglobin 11.3. Albumin 3.4. ASSESSMENT: 1. End-stage renal disease, on hemodialysis on Sunday, Sunday, Sunday schedule. We will arrange for hemodialysis. The patient was dialyzed today and as inpatient; however, he developed significant fevers and chills. Therefore, treatment was terminated. The patient will be dialyzed again tomorrow. 2. Mild hyperkalemia. Expect improvement with dialysis. 3. Fever secondary to underlying PermCath-related infection, status post empiric vancomycin and Rocephin. I will give a dose of gentamicin as well. Blood cultures have been drawn. We will consult Vascular Surgery for removal of PermCath if the patient continues to have symptoms. 4. Chronic kidney disease mineral bone disorder. PLAN: Repeat hemodialysis in a.m. Follow up on blood cultures. Gentamicin IV piggyback x1. Thank you for this consultation. Will continue to follow the patient with you during his hospitalization. MMODL / IJN: [id number] /
[2017-10-25] MEDS: SEVELAMER 800 MG TAB PO SCH ×3 (07:44→17:47)
[2017-10-25] MEDS: FOLIC ACID-VIT B COMPLEX-VIT C 1 CAP PO SCH (07:44)
--- NOTE | 2017-10-25 11:34 | P.PN ---
Subjective Patient is seen in follow-up for end-stage renal disease. He is maintained on hemodialysis on a Sunday schedule via right chest permacath. Patient has a left upper extremity AV graft which has been clotted for the last 8 months. Patient presented with fever. His blood cultures are positive for gram-negative bacilli. Currently resting in bed. Denies cough. No vomiting or diarrhea. Denies chest pain or shortness of breath. Vital signs are stable. General: The patient appeared well nourished and normally developed. HEENT: Head exam is unremarkable. Neck is without jugular venous distension. LUNGS: Lungs are clear to auscultation and percussion. Breath sounds decreased. HEART: Rate and Rhythm are regular. First and second heart sounds normal. No murmurs, rubs or gallops. ABDOMEN: Abdominal exam reveals normal bowel sounds. Non-tender and non- distended. No evidence of peritonitis. EXTREMITITES: No clubbing, cyanosis, or edema. Objective - Vital Signs Vital signs: Vital Signs Temp 97.2 F L 10/25/17 05:45 Pulse 77 10/25/17 05:45 Resp 16 10/25/17 05:45 BP 140/86 10/25/17 05:45 Pulse Ox 97 10/25/17 05:45 Intake & Output 10/24/17 10/25/17 10/25/17 18:59 06:59 18:59 Intake Total 400 Output Total 0 Balance 400 Weight 80.739 kg Intake: Oral 400 Output: Urine 0 Other: # Bowel Movements 0 - Labs CBC & Chem 7: 10/24/17 12:20 10/24/17 12:20 Labs: Abnormal Lab Results - Last 24 Hours (Table) 10/24/17 10/24/17 10/25/17 Range/Units 12:20 12:20 07:06 RBC 3.53 L (4.30-5.90) m/uL Hgb 11.3 L (13.0-17.5) gm/dL Hct 34.6 L (39.0-53.0) % Lymphocytes # 0.5 L (1.0-4.8) k/uL Potassium 5.2 H (3.5-5.1) mmol/L Chloride 96 L (98-107) mmol/L BUN 98 H* (9-20) mg/dL Creatinine 23.90 H* (0.66-1.25) mg/dL Glucose 121 H (74-99) mg/dL Calcium 7.2 L (8.4-10.2) mg/dL Phosphorus 5.4 H (2.5-4.5) mg/dL AST 14 L (17-59) U/L Total Protein 6.1 L (6.3-8.2) g/dL Albumin 3.4 L (3.5-5.0) g/dL Microbiology - Last 24 Hours (Table) 10/24/17 12:20 Blood Culture Gram Stain - Preliminary Blood 10/24/17 12:20 Blood Culture - Final Blood Assessment and Plan Plan: Assessment: 1. End-stage renal disease maintained on hemodialysis on a Sunday schedule via right chest permacath. He has a left upper extremity AV graft which has been clotted for the last 8 months. 2. Gram-negative bacteremia, source likely being the permacath. 3. 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 4. Hypertension with chronic kidney disease. Controlled. Plan: Hemodialysis today with goal 2 liters ultrafiltration - if unable to tolerate again today, he will need dialysis catheter replaced this admission. Follow-up cultures. Antibiotics per infectious disease recommendations - he did receive Rocephin as well as gentamicin yesterday. Discussed the importance of following up with vascular surgery as an outpatient to get an AV fistula created.
[2017-10-25] MEDS ORDERED: VANCOMYCIN 1,500 MG in SODIUM CHLORIDE 0.9% 250 ML IVPB ONE (12:00)
[2017-10-25] MEDS: ACETAMINOPHEN TAB 325 MG TAB PO PRN (16:09)
[2017-10-25] MEDS ORDERED: LIDOCAINE 1% INJ 10MG/ML (20 ML MDV) SQ ONE ×3 (16:36→17:45)
--- NOTE | 2017-10-25 18:50 | OP ---
OPERATIVE REPORT PREOPERATIVE DIAGNOSIS: Infected catheter, right IJ catheter. PROCEDURE: Removal of the dialysis catheter and sent for culture and sensitivity. The patient was seen in his room. Right side of the neck and chest was prepped and draped in the usual sterile manner. Lidocaine 1% was infiltrated. A small incision was made at the exit site of catheter that went circumferentially around the catheter. Catheter was removed and incision was closed with 4-0 nylon and dressing was applied. Patient tolerated the procedure well. MMRUSH / MARYN: [id number] /
[2017-10-25] MEDS: CINACALCET 30 MG TAB PO SCH (21:25)
--- NOTE | 2017-10-26 06:36 | CONS ---
CONSULTATION DATE OF SERVICE: 10/25/2017. REASON FOR CONSULTATION: Gram-negative bacteremia. HISTORY OF PRESENT ILLNESS: The patient is a 37-year-old male with a past medical history significant for end-stage renal disease for which the patient is currently on hemodialysis through right subclavian PermCath that has been placed about 8 months ago. The patient has been presenting to the ER at [facility] with chief complaints of not feeling well and running a low-grade fever. Apparently, the patient did miss his dialysis on Sunday because of no transportation. The patient denies having any headache. No URI symptoms. No chest pain or shortness of breath. No cough. No abdominal pain or any diarrhea. The patient did have blood cultures done. He was started on vancomycin, Rocephin with the blood cultures now coming positive gram negative bacilli. Hence ID was consulted for further recommendation regarding antibiotic therapy. The patient has been running a fever of 101-102 degrees Fahrenheit on a daily basis. The patient has been admitted to the hospital. The patient also has , but his white count has been normal. REVIEW OF SYSTEMS: CONSTITUTIONAL: Positive for weakness along with the fever. Eyes: No complaint. ENT no complaint. Respiratory no complaint. Cardiovascular no complaint. Genitourinary no complaint. Gastrointestinal: No complaint. Musculoskeletal no complaint. Integumentary: No complaint. ENT no complaint. Psychological no complaint. Endocrine no complaint. Neurological no complaint. PAST MEDICAL HISTORY: Significant for end-stage renal disease on hemodialysis, hypertension. PAST SURGICAL HISTORY: Left arm AV fistula graft and right subclavian Perma catheter. SOCIAL HISTORY: No history of smoking. No drinking. Did admit to marijuana use. FAMILY HISTORY: Father history of hypertension. ALLERGIES: No known drug allergies. MEDICATIONS: Include the patient is currently on vancomycin, gentamicin, Tylenol, Labetalol, Nephrocaps. EXAMINATION: Blood pressure is 149/91 with a pulse of 84, temperature is 99.4. T-max 102. He is 93% on room air. General description is a middle-aged male lying in bed in no distress. No tachypnea or accessory muscles of respiration use. HEENT: Shows no pallor or scleral icterus. Oral mucosa membranes are dry. No pharyngeal erythema or thrush. Neck trachea central. No thyromegaly. Lungs unlabored breathing. Clear to auscultation anteriorly. No wheeze or crackles. Heart S1, S2. Regular rate and rhythm. ABDOMEN: Soft, no tenderness. No guarding or rigidity. Extremities: No edema of the feet. Examination of the right PermCath site with no swelling or redness. Neurological : Patient is awake, alert, oriented times three. Mood and affect normal. LABS: Hemoglobin 11.8, white count 5.3, BUN of 98, creatinine 2.3 0.90. Potassium is 5.2 with liver enzymes normal. DIAGNOSTIC IMPRESSION/PLAN: Patient admitted to the hospital with sepsis, now with evidence of gram-negative bacteremia, source likely [id number] infection that has been there for almost 8 months now. That PermCath will need to be removed in order to completely clear this infection. PLAN: 1. Plan of care was discussed in detail with the balance truing inspector for vascular surgery consultation for removal of the Perm catheter and the for the culture. 2. We will discontinue vancomycin as no gram-positive has been grown. 3. We will start the patient on Fortaz 2 g daily. 4. We will follow up on his clinical condition to further adjust medication if needed. Thank you for this consultation. Will follow this patient along with you. MMODL / IJN: [id number] /
[2017-10-26] MEDS: SEVELAMER 800 MG TAB PO SCH ×3 (08:02→17:25)
[2017-10-26] MEDS: FOLIC ACID-VIT B COMPLEX-VIT C 1 CAP PO SCH (08:03)
[2017-10-26 08:22] LABS: Calcium 7.3 mg/dL (8.4-10.2); Potassium 5.8 mmol/L (3.5-5.1)
[2017-10-26] MEDS ORDERED: DEXTROSE 50%-WATER 50 ML SYRINGE IVP STA (08:42)
[2017-10-26] MEDS ORDERED: INSULIN REGULAR 100 UNIT/ML VIAL IV ONE (08:45)
[2017-10-26] MEDS: FUROSEMIDE 10 MG/ML 10 ML VIAL IV SCH ×2 (09:08→21:26)
--- NOTE | 2017-10-26 09:22 | P.PN ---
Subjective Patient is seen in follow-up for end-stage renal disease. He is maintained on hemodialysis on a Sunday schedule. Patient has a left upper extremity AV graft which has been clotted for the last 8 months. Patient presented with fever. His blood cultures are positive for gram-negative bacilli. Currently resting in bed. Denies cough. No vomiting or diarrhea. Denies chest pain or shortness of breath. Right chest permacath was discontinued on October 25 after dialysis due to bacteremia. Vital signs are stable. General: The patient appeared well nourished and normally developed. HEENT: Head exam is unremarkable. Neck is without jugular venous distension. LUNGS: Lungs are clear to auscultation and percussion. Breath sounds decreased. HEART: Rate and Rhythm are regular. First and second heart sounds normal. No murmurs, rubs or gallops. ABDOMEN: Abdominal exam reveals normal bowel sounds. Non-tender and non- distended. No evidence of peritonitis. EXTREMITITES: No clubbing, cyanosis, or edema. Objective - Vital Signs Vital signs: Vital Signs Temp 98.8 F 10/26/17 05:40 Pulse 82 10/26/17 05:40 Resp 16 10/26/17 05:40 BP 150/95 10/26/17 05:40 Pulse Ox 96 10/26/17 05:40 Intake & Output 10/25/17 10/26/17 10/26/17 18:59 06:59 18:59 Intake Total 100 Balance 100 Intake: Oral 100 Other: # Voids 0 0 - Labs CBC & Chem 7: 10/24/17 12:20 10/26/17 07:07 Labs: Abnormal Lab Results - Last 24 Hours (Table) 10/25/17 10/26/17 Range/Units 07:06 07:07 Potassium 5.8 H (3.5-5.1) mmol/L BUN 62 H (9-20) mg/dL Creatinine 18.76 H* (0.66-1.25) mg/dL Calcium 7.3 L (8.4-10.2) mg/dL Phosphorus 5.4 H (2.5-4.5) mg/dL Microbiology - Last 24 Hours (Table) 10/25/17 17:40 Catheter Tip Culture - Preliminary Catheter Tip 10/24/17 12:20 Blood Culture Gram Stain - Preliminary Blood Blood Culture - Preliminary Gram Neg Bacilli 10/24/17 18:00 Blood Culture - Preliminary Blood No Growth after 24 hours 10/24/17 17:55 Blood Culture - Preliminary Blood No Growth after 24 hours 10/24/17 12:20 Blood Culture - Final Blood Assessment and Plan Plan: Assessment: 1. End-stage renal disease maintained on hemodialysis on a Sunday schedule via right chest permacath - discontinued October 25 due to bacteremia. He has a left upper extremity AV graft which has been clotted for the last 8 months. 2. Gram-negative bacteremia, source likely being the permacath (removed October 25) 3. 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 4. Hypertension with chronic kidney disease. 5. Hyperkalemia secondary to chronic kidney disease. Plan: Hold off on hemodialysis today and over the weekend if not hyperkalemic - he will need a new access placed Sunday. 10 units IV insulin with amp of D50 today. Low potassium diet. Add Lasix 80 mg IV twice daily. Patient refuses to take Kayexalate. Discussed the importance of following up with vascular surgery as an outpatient to get an AV fistula created.
--- NOTE | 2017-10-26 11:48 | CONS ---
CONSULTATION This is a 37-year-old gentleman whom I was consulted for placement of removal of the dialysis catheter. The catheter is in the right jugular, which was placed in the past. Patient was seen by Nephrology and suspecting infection and I was consulted for removal of the dialysis catheter and send the tip of the catheter for culture. MEDICAL HISTORY: Patient has history of chronic renal failure. He is on hemodialysis for long time and also patient's surgical history had a multiple fistula placed in his left upper arm this summer in [place] and he had several right IJ catheter placed in the past in the [place] area. PHYSICAL EXAMINATION: Patient was seen in his room. His by vital signs stable. NECK: Supple. No bruit appreciated. CHEST: Clear to auscultation. ABDOMEN: Soft. Brachial radial pulses present. Patient has multiple graft in his left arm, which has been occluded and patient has a right IJ catheter which will be removed. Risks and complications discussed. MMRUSH / MARYN: [id number] /
--- NOTE | 2017-10-26 15:12 | PN ---
PROGRESS NOTE DATE OF SERVICE: 10/25/2017 CHIEF COMPLAINT: Renal failure. HISTORY OF PRESENT ILLNESS: This gentleman is doing well. He has to go back for dialysis again today. He has not been running a temp and he feels normal. PHYSICAL EXAM: His chest is clear. The cardiac exam is normal. The abdomen is soft, nontender. IMPRESSION: 1. End-stage renal disease. 2. Possible infected shunt. PLAN: Attempt dialysis again today. MMODL / IJN: [id number] /
--- NOTE | 2017-10-26 15:24 | PN ---
PROGRESS NOTE DATE OF SERVICE: 10/26/17. CHIEF COMPLAINT: Chronic renal failure. HISTORY OF PRESENT ILLNESS: This gentleman is a little bit better. He was dialyzed again yesterday, but about an hour before it was completed, he started to get shaking chills once again. Shunt has been removed. Temperature has gone down. He feels well. PHYSICAL EXAM: Chest is clear. Cardiac exam is normal. Abdomen is soft, nontender. IMPRESSION: 1. End-stage renal disease. 2. Infected shunt - removed. PLAN: Await further recommendations regarding dialysis management and continue on antibiotics in the meantime. MMODL / IJN: [id number] /
[2017-10-26] MEDS: CINACALCET 30 MG TAB PO SCH (21:25)
--- NOTE | 2017-10-26 23:27 | PN ---
PROGRESS NOTE DATE OF SERVICE: 10/26/2017. REASON FOR FOLLOWUP: Enterobacter bacteremia secondary to the permacath infection. INTERVAL HISTORY: The patient is afebrile. He has been breathing comfortably. His permacath has been discontinued. Denies have any chest pain or shortness of breath: No abdominal pain or no diarrhea. EXAMINATION: Blood pressure 157/93 with a pulse of 83, temperature 98.5. He is 93% on room air. General description is a middle-aged male, lying in bed in no distress. Respiratory system, unlabored breathing. Clear to auscultation anteriorly. Heart, S1 and S2 regular. Rate and rhythm regular. No tenderness. LABS: BUN of 62, creatinine 18.7. Blood culture currently negative. DIAGNOSTIC IMPRESSION AND PLAN: Patient with Enterobacter bacteremia, source is likely permacath, it has been discontinued. Culture will be repeated tomorrow. Document clearing of bacteremia. If those cultures remained negative, central line should for permacath, hopefully on Sunday. Continue supportive care. MMODL / IJN: [id number] /
[2017-10-27] MEDS: FOLIC ACID-VIT B COMPLEX-VIT C 1 CAP PO SCH (07:51)
[2017-10-27] MEDS: SEVELAMER 800 MG TAB PO SCH ×3 (07:51→17:26)
[2017-10-27] MEDS: FUROSEMIDE 10 MG/ML 10 ML VIAL IV SCH ×2 (07:51→20:35)
--- NOTE | 2017-10-27 12:14 | P.PN ---
Subjective Progress Note Date: 10/27/17 This is a 37-year-old male with ESRD on dialysis via a permacath. He developed bacteremia with Enterobacter aerogenes on 10/24/2014. His permacath on the right side was discontinued 2 days ago on 10/25/2017. He is afebrile feels well has no complaints no nausea vomiting itching shortness of breath dizziness chest pain. Good appetite. He is on ceftazadime, sensitivities have not been done for reasons not clear. Objective - Vital Signs Vital signs: Vital Signs Temp 97.0 F L 10/27/17 06:15 Pulse 75 10/27/17 06:15 Resp 20 10/27/17 06:15 BP 151/87 10/27/17 06:15 Pulse Ox 95 10/27/17 06:15 Intake & Output 10/26/17 10/27/17 10/27/17 18:59 06:59 18:59 Other: Voiding Method Toilet Urinal # Voids 0 0 # Bowel Movements 0 On examination is awake alert oriented. HEENT exam no JVP neck is supple no facial asymmetry Lungs are clear to auscultation percussion good air entry bilaterally Heart sounds unremarkable for any murmur rub gallop Abdomen soft nontender Extremity exam was no edema Awake alert oriented. Motor deficit - Labs CBC & Chem 7: 10/24/17 12:20 10/26/17 16:05 Labs: Abnormal Lab Results - Last 24 Hours (Table) 10/26/17 Range/Units 16:05 Potassium 5.3 H (3.5-5.1) mmol/L Microbiology - Last 24 Hours (Table) 10/24/17 12:20 Blood Culture Gram Stain - Final Blood Blood Culture - Final Enterobacter aerogenes 10/24/17 18:00 Blood Culture - Preliminary Blood No Growth after 48 hours 10/24/17 17:55 Blood Culture - Preliminary Blood No Growth after 48 hours 10/25/17 17:40 Catheter Tip Culture - Preliminary Catheter Tip 10/25/17 14:10 Blood Culture - Preliminary Blood No Growth after 24 hours Assessment and Plan Assessment: Impression 1. ESRD on dialysis via a permacath that has bacteremia with Enterobacter aerogenesis dated 71 and 18. Permacath was discontinued 10/25/2017. His blood cultures so far from 10/25/2017 is reported -24 hours later but it has not been reported on today, which should be 48 hours later. 2. No access for dialysis today, he is clinically stable, last potassium was 5.3 as of late yesterday. 3. Hypertension blood pressure in the 150s satisfactory for now. 4. Hemoglobin is 11.3 hemoglobin at target. 5. 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 Recommendation. 1. I have discussed with him extensively about the need for being on a transplant list the benefits of transplant in both addition of survival benefit as well as quality of life. 2. Discuss in detail the benefits of going on peritoneal dialysis but patient adamantly refuses in spite of knowing the risks of the future long-term need for maintaining dialysis given his not interested in transplant. 3. Obtain labs today and tomorrow so that we can hold off dialysis unless urgently needed. 4. His left arm is not amenable to any surgery as he has a clotted graft in the upper arm. Last 7 months since February 2017.
[2017-10-27 12:55] LABS: Calcium 7.1 mg/dL (8.4-10.2); Potassium 5.8 mmol/L (3.5-5.1)
--- NOTE | 2017-10-27 14:16 | PN ---
PROGRESS NOTE CHIEF COMPLAINT: End-stage renal disease. HISTORY OF PRESENT ILLNESS: This gentleman is doing about the same. He apparently left the hospital for a while last night. He is to be dialyzed today. They may have to put in a new shunt. PHYSICAL EXAM: Chest is clear. The cardiac exam is normal. The abdomen is soft, nontender. IMPRESSION: 1. End-stage renal disease. 2. Sepsis probably secondary to dialysis catheter-removed. PLAN: Dialysis today. MMODL / IJN: [id number] /
[2017-10-27] MEDS: CINACALCET 30 MG TAB PO SCH (20:35)
--- NOTE | 2017-10-27 23:46 | PN ---
PROGRESS NOTE DATE OF SERVICE: 10/27/2017. REASON FOR FOLLOWUP: Enterobacter bacteremia secondary to PermCath infection. INTERVAL HISTORY: The patient is afebrile, has been breathing comfortably. Denies having any chest pain, shortness of breath, cough. No abdominal pain or any diarrhea. EXAMINATION: Blood pressure is 150/74 with a pulse of 75, temperature 97.6. He is 97% on room air. General description is a middle-aged male lying in bed in no distress. RESPIRATORY SYSTEM: Unlabored breathing. Clear to auscultation anteriorly. HEART: S1, S2. Regular rate and rhythm. ABDOMEN: Soft. No tenderness. LABS: BUN of 78, creatinine 1.01. Blood cultures 10/25 have been negative so far. DIAGNOSTIC IMPRESSION AND PLAN: Patient with Enterobacter bacteremia secondary to a PermCath infection that has been discontinued. Antibiotic was adjusted to Rocephin 2 g daily. Discontinued Fortaz. Will wait for this followup culture negative at least 72 hours before placing another PermCath. Continue supportive care. MMODL / IJN: [id number] /
[2017-10-28 08:17] LABS: Basophils % (A) 1 %; Eosinophils # (A) 0.4 k/uL (0-0.7); Eosinophils % (A) 9 %; HCT 39.2 % (39.0-53.0); HGB 12.6 gm/dL (13.0-17.5); Lymphocytes % (A) 24 %; MCH 32.8 pg (25.0-35.0); MCHC 32.2 g/dL (31.0-37.0); MCV 102.1 fL (80.0-100.0); Macrocytosis Slight; Mean Platelet Volume 7.8; Monocytes # (A) 0.3 k/uL (0-1.0); Monocytes % (A) 6 %; Neutrophils # (A) 2.5 k/uL (1.3-7.7); Neutrophils % (A) 57 %; Platelet Count 236 k/uL (150-450); RBC 3.84 m/uL (4.30-5.90); RDW 14.7 % (11.5-15.5); WBC 4.3 k/uL (3.8-10.6)
[2017-10-28 08:32] LABS: Albumin 3.5 g/dL (3.5-5.0); Calcium 7.4 mg/dL (8.4-10.2); Total Bilirubin 0.5 mg/dL (0.2-1.3); Total Protein 6.5 g/dL (6.3-8.2)
[2017-10-28 08:45] LABS: Potassium 6.3 mmol/L (3.5-5.1)
[2017-10-28] MEDS: SEVELAMER 800 MG TAB PO SCH ×3 (08:46→18:11)
[2017-10-28] MEDS: FUROSEMIDE 10 MG/ML 10 ML VIAL IV SCH (08:47)
[2017-10-28] MEDS: FOLIC ACID-VIT B COMPLEX-VIT C 1 CAP PO SCH (08:47)
[2017-10-28] MEDS ORDERED: DEXTROSE 50%-WATER 50 ML SYRINGE IVP STA (12:19)
[2017-10-28] MEDS ORDERED: INSULIN NPH 300 UNIT/3 ML VIAL SQ ONE (12:20)
[2017-10-28] MEDS ORDERED: INSULIN REGULAR 100 UNIT/ML VIAL IV ONE (12:35)
[2017-10-28] MEDS ORDERED: cefTRIAXone IN SWFI 2,000 MG/20 ML SYRINGE IVP SCH (13:00)
[2017-10-28] MEDS ORDERED: SODIUM POLYSTYRENE SULFONATE 15 GM/60 ML BOTTLE PO STA (13:24)
--- NOTE | 2017-10-28 13:24 | P.PN ---
Subjective Progress Note Date: 10/28/17 This is a 37-year-old male with ESRD on dialysis via a permacath. He developed bacteremia with Enterobacter aerogenes on 10/24/2014. His permacath on the right side was discontinued on 10/25/2017. He was doing well until this morning when his potassium is up at 6.3. He remains fairly asymptomatic. He is afebrile feels well has no complaints no nausea vomiting itching shortness of breath dizziness chest pain. Good appetite. His refusing to take Kayexalate. Patient has been told about the difficulty of putting a catheter today and getting him dialyze this being a Sunday. He is aware of the risks of hyperkalemia. He is on ceftazadime, sensitivities and form that is effective Objective - Vital Signs Vital signs: Vital Signs Temp 96.7 F L 10/28/17 06:05 Pulse 77 10/28/17 06:05 Resp 14 10/28/17 06:05 BP 138/85 10/28/17 06:05 Pulse Ox 98 10/28/17 06:05 Intake & Output 10/27/17 10/28/17 10/28/17 18:59 06:59 18:59 Other: # Voids 0 0 # Bowel Movements 0 On examination is awake alert oriented HEENT exam no JVP lymphadenopathy thyromegaly neck is supple no facial asymmetry Lungs are clear to auscultation percussion good air entry bilaterally Heart sounds are unremarkable for any murmur rub gallop Abdomen soft nontender Extremity exam reveals no edema Neurologically awake alert oriented no asterixis. - Labs CBC & Chem 7: 10/28/17 07:59 10/28/17 07:59 Labs: Abnormal Lab Results - Last 24 Hours (Table) 10/28/17 10/28/17 Range/Units 07:59 07:59 RBC 3.84 L (4.30-5.90) m/uL Hgb 12.6 L (13.0-17.5) gm/dL MCV 102.1 H (80.0-100.0) fL Potassium 6.3 H* (3.5-5.1) mmol/L Carbon Dioxide 21 L (22-30) mmol/L BUN 88 H* (9-20) mg/dL Creatinine 21.95 H* (0.66-1.25) mg/dL Calcium 7.4 L (8.4-10.2) mg/dL AST 16 L (17-59) U/L Microbiology - Last 24 Hours (Table) 10/24/17 18:00 Blood Culture - Preliminary Blood No Growth after 72 hours 10/25/17 17:40 Catheter Tip Culture - Final Catheter Tip 10/24/17 17:55 Blood Culture - Preliminary Blood No Growth after 72 hours 10/25/17 14:10 Blood Culture - Preliminary Blood No Growth after 48 hours Assessment and Plan Assessment: Impression 1. ESRD on dialysis via a permacath that has bacteremia with Enterobacter aerogenesis dated 10/24/2017. Permacath was discontinued 10/25/2017. His blood cultures so far from 10/25/2017 is reported -is negative. 2. Hyperkalemia potassium is 6.3. Patient is refusing Kayexalate. We'll try to control this with D50 and insulin. 3. Hypertension blood pressure in the 150s satisfactory for now. 4. Hemoglobin is 11.3 hemoglobin at target. 5. 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 Recommendation. 1. I have discussed with him regarding the need for taking Kayexalate to control his potassium until we can arrange dialysis. I have called Dr. Daly and left a message for him to arrange for a permacath and we will dialyze him if possible today. 2. Repeat potassium 4 hours after the D50 and insulin combination. 3. Discussed with him regarding need to maintain a low potassium diet. 4. 2 g potassium diet 5. Previously had discussed with him in detail regarding need for transplant and to consider peritoneal dialysis but is adamantly refusing to consider either one. Is not willing to discuss why.
[2017-10-28 14:06] LABS: Potassium 5.1 mmol/L (3.5-5.1)
[2017-10-28 14:42] VITALS: BP 179/109; PULSE 82; RESP 20; TEMP 98.3
--- NOTE | 2017-10-28 15:52 | US ---
EXAMINATION TYPE: US venous doppler duplex UE BI DATE OF EXAM: 10/28/2017 COMPARISON: NONE CLINICAL HISTORY: 37-year-old male assess jugular vein bilateral. Assess bilateral jugular vein for d ialysis catheter placement per Dr. Daly SIDE PERFORMED: bilateral internal jugular veins were imaged. The exam does not include the entire up per extremities. Findings: Right Arm: right jugular vein positive for DVT. Thrombus noted with no flow at this time. Complex sheba earance with some vessel narrowing and internal webs suspected to represent chronic DVT. Left Arm: no evidence of DVT left jugular vein Dr. Daly present during exam IMPRESSION: There is thrombus involving the right internal jugular vein. The left internal jugular vein appears p atent.
--- NOTE | 2017-10-28 17:59 | PN ---
PROGRESS NOTE This is a 37-year-old gentleman who has a history of a chronic renal failure. Patient has been admitted with bacteremia and infected right IJ catheter which was removed on 10/25/2017 and the patient has been on IV antibiotic under care of Infectious Disease. I was told that the patient should be needing a dialysis catheter on Sunday, but today his potassium is 6.[address] Aragon of the fire alarm dispatcher is recommended to have a dialysis catheter today. The patient blood cultures are negative and the patient is cleared from Infectious Disease for placement of the catheter. We did the ultrasound of his neck. Right jugular is occluded, has a chronic clot and left jugular is patent. This patient had multiple catheters placed in the past on the right side and on the left side. I have discussed with him if he has a central restenosis, then the patient will be needing a dialysis catheter in the groin until we do some intervention for the central stenosis. The patient also has a left upper arm [place] graft placed at [place], which has been occluded. PLAN: The patient is lying this afternoon. We will wait for a 6 to 7 hours and consider placing a left jugular catheter with IV sedation. If we found any occlusive disease, innominate vein artery or into the vena cava, then patient will need a temporary catheter for immediate dialysis catheter. The patient understands. MMODL / IJN: [id number] /
--- NOTE | 2017-10-28 19:05 | PN ---
PROGRESS NOTE DATE OF SERVICE: 10/28/2017. REASON FOR FOLLOW UP: Enterobacter bacteremia secondary to the PermCath infection. INTERVAL HISTORY: The patient is afebrile. The patient has been fighting and insisting on going home today. The patient denies having any chest pain or shortness of breath or cough. No abdominal pain. No diarrhea. EXAMINATION: Blood pressure is 179/100 with a pulse of 82, temperature 98.3. He is 92% on room air. General description is a middle-aged male lying in bed in no distress. RESPIRATORY SYSTEM: Unlabored breathing. Clear to auscultation anteriorly. HEART: S1, S2. Regular rate and rhythm. ABDOMEN: Soft, no tenderness. LABS: White count normal at 4.3. Blood cultures done on 10/24 and 10/25 have been negative. DIAGNOSTIC IMPRESSION AND PLAN: Patient with Enterobacter bacteremia secondary to PermCath, that has been discontinued. Currently on Rocephin. Patient has been fighting to go home. He will get his PermCath later today. Afterwards he may be to go home on oral Cipro 500 mg daily for 10 days. Prescription has been sent to the pharmacy. MMODL / MARYN: [id number] /
--- NOTE | 2017-10-28 20:26 | PN ---
PROGRESS NOTE I got a call and attended at 7:00 pm for this gentleman who did the dialysis. His potassium has gone to 5.8. He was given insulin and he also had his dinner. The only way to bring the potassium down is to give him Kayexalate and put a temporary dialysis catheter in the femoral vein. The patient is absolutely refusing to have Kayexalate and does not want any catheter placed. He has a history of multiple catheters placed in both sides and in [place]. To place another catheter in his neck, there is a possibility we have to rule out any central stenosis. We have to do any new vena cavogram or to check for if there is any stenosis because of multiple catheters. The patient is not cooperative at all and he wants to go AGAINST MEDICAL ADVICE. We explained to him the risks of high potassium and he understands. [employer] Manager came and talked to this patient, but he is still refusing. All the risks and benefits were explained to the patient, but he wants to go AGAINST MEDICAL ADVICE. ELISEO / MARYN: [id number] /
--- NOTE | 2017-10-29 18:15 | DS ---
DISCHARGE SUMMARY DATE OF SERVICE: 10/28/2017 CHIEF COMPLAINT: End-stage renal disease and sepsis. HISTORY OF PRESENT ILLNESS: This gentleman was admitted for dialysis. He was dialyzed and about an hour into it, he developed shaking, chills and fever. It was determined that the shunt was infected and this was subsequently removed. It was planned that he would have another shunt placed and be continued on dialysis, but he walked out of the hospital AGAINST MEDICAL ADVICE at 7:00 pm on 10/28. FINAL DIAGNOSES: 1. End-stage renal disease. 2. Sepsis secondary to infected dialysis catheter. OPERATIONS: None. CONSULTATIONS: Nephrology. He is improved. MMODL / IJN: [id number] /
--- NOTE | 2017-10-31 10:29 | CONS ---
CONSULTATION This gentleman came to the emergency room on Sunday. The patient is known to me. He was admitted on the weekend for infected dialysis catheter, which has been removed. The patient has hyperkalemia. Patient was treated by Nephrology. The patient needed dialysis catheter and vena cavagram. The patient left against medical advice on Sunday evening and he came back to the emergency room with high potassium. We were consulted for placement of the dialysis catheter. MEDICAL HISTORY: History of chronic renal failure. SURGICAL HISTORY: Patient had a left upper arm [place]-Neto graft placed in [place] and he had multiple catheters placed on the right and left jugular vein in the past. Patient is new to [place]. PHYSICAL EXAMINATION: On examination, neck was supple. Trachea was central. CHEST: Clear. ABDOMEN: Soft. PLAN: Plan is vena cavagram and placement of the dialysis catheter. Risks and complications of bleeding, infection, thrombosis has been discussed. MMODL / IJN: [id number] /
== END 2017-10-28 17:00 | disposition left against medical advice (07) | DRG 314 ==
LOC: EC 11:40 → 4MS4W 13:50
PROVIDERS: ADMIT Family Medicine; ATTEND Family Medicine
PROC: 02PA33Z Removal of Infusion Device from Heart, Percutaneous Approach (ICD-10-PCS; principal; 2017-10-25)
PROC: 5A1D70Z Performance of Urinary Filtration, Intermittent, Less than 6 Hours Per Day (ICD-10-PCS; principal; 2017-10-25)
DX: T82.7XXA Infection and inflammatory reaction due to other cardiac and vascular devices, implants and grafts, initial encounter (principal); A41.50 Gram-negative sepsis, unspecified; N18.6 End stage renal disease; I12.0 Hypertensive chronic kidney disease with stage 5 chronic kidney disease or end stage renal disease; Y83.8 Other surgical procedures as the cause of abnormal reaction of the patient, or of later complication, without mention of misadventure at the time of the procedure; D63.8 Anemia in other chronic diseases classified elsewhere; E87.5 Hyperkalemia; F12.90 Cannabis use, unspecified, uncomplicated; M89.9 Disorder of bone, unspecified; Z82.49 Family history of ischemic heart disease and other diseases of the circulatory system; Z99.2 Dependence on renal dialysis
CPT/HCPCS: 36415; 71046; 80048; 80051; 80053; 80202; 83605; 84100; 84132; 85025; 85610; 85730; 87040; 87070; 87077; 87186; 90935; 93005; 93970; 96365; 96366; 96375; 99284

== ENCOUNTER 2017-10-29 12:18 | Inpatient (IN) | payer OTHER ==
--- NOTE | 2017-10-29 13:15 | ED ---
General Adult HPI - General Chief complaint: Recheck/Abnormal Lab/Rx Stated complaint: Needs Port and Dialysis Time Seen by Provider: 10/29/17 13:03 Source: patient, RN notes reviewed, old records reviewed Mode of arrival: ambulatory Limitations: no limitations - History of Present Illness Initial comments: 37 -year-old male with end-stage renal disease presents for reevaluation. Patient left AGAINST MEDICAL ADVICE for the past 24 hours. He was admitted with infected permacath. He has a left upper extremity fistula which is nonfunctional at this time. He was scheduled to receive a 2 permacath and received dialysis however he left prior to insertion of the catheter or receiving hemodialysis. His last session was which is 4 days ago. He reports some mild lower extremity swelling, no significant dyspnea, no chest pain. No fever or chills. He did have positive blood cultures and received IV antibiotics. Patient has no other complaints, he is just here to complete the treatment that was planned for him. - Related Data Home Medications Medication Instructions Recorded Confirmed Cinacalcet HCl [Sensipar] 60 mg PO HS 09/21/17 10/29/17 Folic Acid-Vit B Complex-Vit C 1 cap PO DAILY 09/21/17 10/29/17 [Nephrocaps] Sevelamer [Renvela] 4,000 mg PO AC-TID 09/21/17 10/29/17 Allergies Allergy/AdvReac Type Severity Reaction Status Date / Time No Known Allergies Allergy Verified 10/29/17 13:04 Review of Systems ROS Statement: Those systems with pertinent positive or pertinent negative responses have been documented in the HPI. ROS Other: All systems not noted in ROS Statement are negative. Past Medical History Past Medical History: Dialysis, Hypertension, Renal Disease Additional Past Medical History / Comment(s): kidney disease History of Any Multi-Drug Resistant Organisms: None Reported Additional Past Surgical History / Comment(s): fistula/graft lt arm, surgery on kidneys as an infant pt not sure exactly what was done, port rt chest placed when his fistula wasn't working. Past Anesthesia/Blood Transfusion Reactions: No Reported Reaction Past Psychological History: No Psychological Hx Reported Smoking Status: Former smoker Past Alcohol Use History: None Reported Past Drug Use History: Marijuana - Past Family History Mother Additional Family Medical History / Comment(s): bronchitis Father Family Medical History: Hypertension General Exam Limitations: no limitations General appearance: alert, in no apparent distress Head exam: Present: atraumatic, normocephalic Eye exam: Present: normal appearance, PERRL ENT exam: Present: normal exam Neck exam: Present: normal inspection. Absent: tenderness, meningismus Respiratory exam: Present: normal lung sounds bilaterally. Absent: respiratory distress, wheezes, rales Cardiovascular Exam: Present: regular rate, normal rhythm GI/Abdominal exam: Present: soft. Absent: distended, tenderness Extremities exam: Present: pedal edema Back exam: Present: normal inspection Neurological exam: Present: alert, oriented X3, CN II-XII intact. Absent: motor sensory deficit Psychiatric exam: Present: normal affect, normal mood Skin exam: Present: warm, dry, intact. Absent: cyanosis, diaphoretic Course Vital Signs 10/29/17 12:55 Temperature 98.4 F Pulse Rate 87 Respiratory 18 Rate Blood Pressure 175/113 O2 Sat by Pulse 99 Oximetry EKG Findings - EKG Comments: EKG Findings:: EKG: Normal sinus rhythm, rate of 81, OR interval 166, QTC 443, QRS duration 92, Peaked T waves in precordial leads Medical Decision Making - Medical Decision Making 37 yo male with end-stage renal disease presenting for need for hemodialysis. Patient does not have vascular access last hemodialysis was 4 days ago. Not significantly fluid overloaded on exam there is some hypertension. Lungs are clear. Pain in room air. Potassium is 6.3 with some minor EKG changes. Chest x-ray is clear. Case is discussed with Dr. Daly who will obtain vascular access at 4 PM today. Case discussed with Dr. Leone will arrange for hemodialysis after vascular access is obtained. Patient will be admitted to Dr. Gordon - Lab Data Result diagrams: 10/29/17 13:27 10/29/17 13:27 Lab Results 10/29/17 10/29/17 Range/Units 13:27 13:27 WBC 4.4 (3.8-10.6) k/uL RBC 3.59 L (4.30-5.90) m/uL Hgb 11.5 L (13.0-17.5) gm/dL Hct 35.6 L (39.0-53.0) % MCV 99.1 (80.0-100.0) fL MCH 32.0 (25.0-35.0) pg MCHC 32.3 (31.0-37.0) g/dL RDW 14.8 (11.5-15.5) % Plt Count 235 (150-450) k/uL Neutrophils % 70 % Lymphocytes % 17 % Monocytes % 5 % Eosinophils % 6 % Basophils % 1 % Neutrophils # 3.0 (1.3-7.7) k/uL Lymphocytes # 0.8 L (1.0-4.8) k/uL Monocytes # 0.2 (0-1.0) k/uL Eosinophils # 0.2 (0-0.7) k/uL Basophils # 0.0 (0-0.2) k/uL Macrocytosis Slight Sodium 144 (137-145) mmol/L Potassium 6.3 H* (3.5-5.1) mmol/L Chloride 102 (98-107) mmol/L Carbon Dioxide 19 L (22-30) mmol/L Anion Gap 23 mmol/L BUN 99 H* (9-20) mg/dL Creatinine 25.61 H* (0.66-1.25) mg/dL Est GFR (CKD-EPI)AfAm 2 (>60 ml/min/1.73 sqM) Est GFR (CKD-EPI)NonAf 2 (>60 ml/min/1.73 sqM) Glucose 84 (74-99) mg/dL Calcium 8.9 (8.4-10.2) mg/dL Phosphorus 6.3 H (2.5-4.5) mg/dL Magnesium 3.7 H (1.6-2.3) mg/dL Total Bilirubin 0.4 (0.2-1.3) mg/dL AST 37 (17-59) U/L ALT 36 (21-72) U/L Alkaline Phosphatase 122 (38-126) U/L Total Protein 6.9 (6.3-8.2) g/dL Albumin 4.0 (3.5-5.0) g/dL Critical Care Time Critical Care Time: Yes Total Critical Care Time: 36 Disposition Clinical Impression: Hyperkalemia, Dialysis patient, noncompliant, Renal failure Disposition: ADMITTED IP TO THIS [facility] Condition: Stable Is patient prescribed a controlled substance at d/c from ED?: No Referrals: Vinnie Gordon MD [Primary Care Provider] - 1-2 days Decision to Admit Reason: Admit from EC Decision Date: 10/29/17 Decision Time: 14:32
[2017-10-29 13:47] LABS: Basophils % (A) 1 %; Eosinophils # (A) 0.2 k/uL (0-0.7); Eosinophils % (A) 6 %; HCT 35.6 % (39.0-53.0); HGB 11.5 gm/dL (13.0-17.5); Lymphocytes # (A) 0.8 k/uL (1.0-4.8); Lymphocytes % (A) 17 %; MCHC 32.3 g/dL (31.0-37.0); MCV 99.1 fL (80.0-100.0); Macrocytosis Slight; Mean Platelet Volume 7.8; Monocytes # (A) 0.2 k/uL (0-1.0); Monocytes % (A) 5 %; Neutrophils % (A) 70 %; Platelet Count 235 k/uL (150-450); RBC 3.59 m/uL (4.30-5.90); RDW 14.8 % (11.5-15.5); WBC 4.4 k/uL (3.8-10.6)
--- NOTE | 2017-10-29 13:50 | XR ---
EXAMINATION TYPE: XR chest 2V DATE OF EXAM: 10/29/2017 COMPARISON: 10/24/2017 HISTORY: Renal failure. Evaluate for fluid overload. TECHNIQUE: Frontal and lateral views of the chest are obtained. FINDINGS: There is no focal air space opacity, pleural effusion, or pneumothorax seen. The cardiac silhouette size is within normal limits. The osseous structures are intact. Left-sided vascular silvia nts are seen. The previously seen dual lumen hemodialysis catheter has been removed in the interim. IMPRESSION: No acute cardiopulmonary process. No evidence of noncardiogenic fluid overload. Interval removal of the right-sided dual lumen hemodialysis catheter.
[2017-10-29 13:57] LABS: Calcium 8.9 mg/dL (8.4-10.2); Magnesium 3.7 mg/dL (1.6-2.3); Phosphorus 6.3 mg/dL (2.5-4.5); Total Bilirubin 0.4 mg/dL (0.2-1.3); Total Protein 6.9 g/dL (6.3-8.2)
[2017-10-29 14:10] LABS: Potassium 6.3 mmol/L (3.5-5.1)
[2017-10-29] MEDS ORDERED: CALCIUM CHLORIDE 1,000 MG in SODIUM CHLORIDE 0.9% 100 ML IV ONE (14:10)
[2017-10-29] MEDS ORDERED: SODIUM POLYSTYRENE SULFONATE 15 GM/60 ML BOTTLE PO ONE (14:10)
[2017-10-29] MEDS ORDERED: NALOXONE 0.4 MG/ML 1 ML VIAL IV PRN (14:25)
[2017-10-29] MEDS ORDERED: LIDOCAINE 1% INJ 10MG/ML (20 ML MDV) SQ ONE ×3 (17:04→17:50)
[2017-10-29] MEDS ORDERED: IOPAMIDOL-250 50ML BTL IV ONE ×3 (17:08→17:22)
[2017-10-29] MEDS ORDERED: MIDAZOLAM 2 MG/2 ML VIAL IV ONE ×2 (17:10)
[2017-10-29] MEDS: fentaNYL (PF) 50 MCG/ML 2 ML AMP IV ONE ×2 (17:10→17:36)
[2017-10-29] MEDS ORDERED: HEPARIN SODIUM 1,000 UN/ML (10ML VL) MISCELLANE ONE (18:00)
[2017-10-29] MEDS ORDERED: methylPREDNISolone SOD SUCCI 125 MG/2 ML VIAL IV ONE (18:02)
[2017-10-29] MEDS ORDERED: diphenhydrAMINE 50 MG/ML 1 ML VIAL IVP ONE (18:02)
[2017-10-29] MEDS ORDERED: FLUMAZENIL 0.1 MG/ML 5 ML VIAL IVP ONE (18:07)
[2017-10-29] MEDS ORDERED: NALOXONE 0.4 MG/ML 1 ML VIAL IV ONE ×2 (18:08)
[2017-10-29] MEDS ORDERED: SODIUM CHLORIDE 0.9% 250 ML IV ONE (18:25)
[2017-10-29] MEDS ORDERED: LABETALOL 5 MG/ML VIAL MDV IV ONE (18:27)
[2017-10-29 18:59] LABS: Glucose,Whole Blood 86 mg/dL (75-99)
[2017-10-29] MEDS ORDERED: LABETALOL 5 MG/ML VIAL MDV IVP STA (19:09)
--- NOTE | 2017-10-29 20:32 | XR ---
EXAMINATION TYPE: XR chest 1V portable DATE OF EXAM: 10/29/2017 COMPARISON: Today HISTORY: Catheter placement TECHNIQUE: Single frontal view of the chest is obtained. FINDINGS: There is a dual-lumen left side central venous catheter with the tip over the right atrium . Lungs are clear of infiltrate. There is no evidence of pleural effusion or pneumothorax. IMPRESSION: Catheter appears in good position. Left subclavian artery stent is noted.
[2017-10-29] MEDS ORDERED: CINACALCET 30 MG TAB PO SCH (21:00)
--- NOTE | 2017-10-29 21:21 | OP ---
OPERATIVE REPORT PREOP DIAGNOSIS: Acute and chronic renal failure. PROCEDURE: Superior vena cavogram followed by ultrasound-guided 28 cm dialysis catheter, left jugular approach. PROCEDURE IN DETAIL: This patient came to us last week with the infected right IJ dialysis catheter which was removed this last Sunday. The patient was on IV antibiotic under care of Infectious Disease and Dr. Goss. The patient went against medical advise yesterday because of high potassium and the patient does not wanted to have a femoral dialysis catheter for urgent dialysis catheter placement. Today he came with a potassium of 6.3 and he was treated with Kayexalate and the patient was brought to the laborer operator and left neck and chest were prepped and draped in a sterile manner. This patient had multiple catheter on the right IJ, left IJ and left upper arm graft which has been occluded. The patient's procedures were done in [place]. 1% lidocaine infiltrated into the neck and chest area and ultrasound-guided micropuncture introduced into the left internal jugular vein. Micro puncture guide was passed and 4-Saudi Arabian dilator advanced on top of the guidewire. We did the venogram and checked the jugular vein, innominate vein, superior vena cava. Superior vena cava was found to be patent. Then incisions were made of the chest wall and 28 cm dialysis catheter brought on the left side. The patient has been complaining of pain. We gave Versed and Fentanyl and then we passed a Glidewire which was parked in the inferior vena cava. The dilator was advanced on the top of the guidewire. Then dilator and sheath were advanced very carefully under C-arm control and then we placed 28 cm dialysis catheter through the sheath and on the top of the Glidewire. The catheter was in the superior vena cava and atrium. Flushed with heparin and saline. During this process patient developed some swelling of his lip and tongue. Most likely he had some reaction to medication. We gave Benadryl and Solu-Medrol and we reversed with Narcan and Romazicon. The patient's vital signs were stable, but we decided to send him to the intensive care unit. The patient will have urgent dialysis catheter placement and will go for dialysis today. MMODL / IJN: [id number] /
[2017-10-29 23:13] VITALS: BMI 27.8
[2017-10-30] MEDS: hydrALAZINE HCL 20 MG/ML 1 ML VIAL IVP PRN ×2 (00:59→13:33)
[2017-10-30 04:39] LABS: Basophils % (A) 0 %; Eosinophils % (A) 1 %; HCT 36.8 % (39.0-53.0); HGB 11.8 gm/dL (13.0-17.5); Lymphocytes # (A) 0.5 k/uL (1.0-4.8); Lymphocytes % (A) 9 %; MCHC 32.1 g/dL (31.0-37.0); MCV 99.8 fL (80.0-100.0); Macrocytosis Slight; Mean Platelet Volume 7.4; Monocytes # (A) 0.1 k/uL (0-1.0); Monocytes % (A) 2 %; Neutrophils # (A) 4.8 k/uL (1.3-7.7); Neutrophils % (A) 88 %; Platelet Count 254 k/uL (150-450); RBC 3.69 m/uL (4.30-5.90); RDW 14.9 % (11.5-15.5); WBC 5.4 k/uL (3.8-10.6)
[2017-10-30 04:55] LABS: Calcium 8.5 mg/dL (8.4-10.2); Magnesium 3.1 mg/dL (1.6-2.3); Phosphorus 4.8 mg/dL (2.5-4.5)
[2017-10-30 05:09] LABS: Potassium 7.1 mmol/L (3.5-5.1)
[2017-10-30] MEDS ORDERED: DEXTROSE 50%-WATER 50 ML SYRINGE IVP STA (06:23)
[2017-10-30] MEDS ORDERED: SODIUM POLYSTYRENE SULFONATE 15 GM/60 ML BOTTLE PO STA (06:23)
[2017-10-30] MEDS ORDERED: INSULIN REGULAR 100 UNIT/ML VIAL IV ONE (06:23)
[2017-10-30] MEDS ORDERED: PANTOPRAZOLE 40 MG TABLET PO SCH (07:30)
[2017-10-30] MEDS: SEVELAMER 800 MG TAB PO SCH ×2 (07:32→12:27)
[2017-10-30] MEDS ORDERED: FOLIC ACID-VIT B COMPLEX-VIT C 1 CAP PO SCH (09:00)
--- NOTE | 2017-10-30 11:25 | IR ---
Fluoroscopy HISTORY: Central venous catheter placement 14.4 minutes fluoroscopy time supplied to the referring clinician. 299 intraoperative C-arm images d ocument the procedure. See dictated report from vascular surgery.
--- NOTE | 2017-10-30 12:07 | P.CNPUL ---
History of Present Illness Consult date: 10/30/17 Requesting physician: Vinnie Gordon Reason for consult: dyspnea Chief complaint: Shortness of breath History of present illness: This is a very pleasant 37-year-old gentleman who follows with Dr. Shiela paige as his primary care physician. He is new to the area. He has a history of hypertension and end-stage renal disease and had been previously receiving hemodialysis. He has a nonfunctioning left upper extremity AV fistula. He had a right subclavian catheter which became infected and subsequently removed. He presented here to the emergency room several days ago but ended up leaving before vascular access catheter could be placed and without dialysis treatment AGAINST MEDICAL ADVICE. Blood cultures were positive for Enterobacter aerogenes. He came back again yesterday with increasing shortness of breath. He did have a "subclavian permacatheter placed last evening. He is to receive hemodialysis today. No leukocytosis. Hemoglobin 11.8. Potassium is 7.1. Creatinine 20.6. He is seen today in consultation in the intensive care unit. He was placed here after receiving fentanyl and Versed in the emergency room and developed an ALLERGIC reaction with laryngeal edema and hypertension and tachycardia. He was treated with IV Solu-Medrol and Benadryl and recovered. He is seen today in the intensive care unit in consultation. He is awake and alert in no acute distress. He denies any residual effects. No swelling no trouble swallowing. No shortness of breath. He is maintaining good O2 saturations in the 90s on room air. He remains somewhat hypertensive. Heart rate regular in the 80s. Plan is for dialysis today. The patient is quite adamant about going home following his treatment. Review of Systems Constitutional: Denies chills, Denies fever Eyes: denies blurred vision, denies decreased vision Ears: deny: decreased hearing Ears, nose, mouth and throat: Denies headache, Denies sore throat Cardiovascular: Denies chest pain, Denies shortness of breath Respiratory: Denies cough Gastrointestinal: Denies abdominal pain, Denies diarrhea, Denies nausea, Denies vomiting Genitourinary: Reports as per HPI Musculoskeletal: Denies myalgias Integumentary: Denies pruritus, Denies rash Neurological: Denies numbness, Denies weakness Psychiatric: Denies anxiety, Denies depression Endocrine: Denies fatigue, Denies weight change Hematologic/Lymphatic: Reports as per HPI Allergic/Immunologic: Reports as per HPI Past Medical History Past Medical History: Dialysis, Hypertension, Renal Disease Additional Past Medical History / Comment(s): kidney disease History of Any Multi-Drug Resistant Organisms: None Reported Additional Past Surgical History / Comment(s): fistula/graft lt arm, surgery on kidneys as an pt not sure exactly what was done, port rt chest placed when his fistula wasn't working. Past Anesthesia/Blood Transfusion Reactions: No Reported Reaction Past Psychological History: No Psychological Hx Reported Additional Psychological History / Comment(s): Pt resides with his mother. He uses no assistive device. He does not drive, his girlfriend takes him to [employer]. Smoking Status: Former smoker Past Alcohol Use History: None Reported Additional Past Alcohol Use History / Comment(s): Started smoking at ge 16, smokes 2-3 cigs per day Past Drug Use History: Marijuana Additional Drug Use History / Comment(s): Smokes marijuana daily-1 joint a day - Past Family History Mother Additional Family Medical History / Comment(s): bronchitis Father Family Medical History: Hypertension Medications and Allergies Home Medications Medication Instructions Recorded Confirmed Type Cinacalcet HCl [Sensipar] 60 mg PO HS 09/21/17 10/29/17 History Folic Acid-Vit B Complex-Vit C 1 cap PO DAILY 09/21/17 10/29/17 History [Nephrocaps] Sevelamer [Renvela] 4,000 mg PO AC-TID 09/21/17 10/29/17 History Allergies Allergy/AdvReac Type Severity Reaction Status Date / Time No Known Allergies Allergy Verified 10/29/17 13:04 Physical Exam Vitals: Vital Signs Temp Pulse Resp BP Pulse Ox 10/30/17 11:00 87 13 183/113 99 10/30/17 10:00 81 15 175/114 98 10/30/17 09:00 95 16 154/95 93 L 10/30/17 08:00 98 F 97 18 170/106 99 10/30/17 07:00 66 14 140/94 98 10/30/17 06:00 83 18 165/102 94 L 10/30/17 05:00 79 14 168/101 98 10/30/17 04:00 98 F 81 15 141/97 98 10/30/17 03:00 80 15 139/89 98 10/30/17 02:00 85 14 154/96 99 10/30/17 01:00 89 15 158/107 100 10/30/17 00:07 88 15 99 10/30/17 00:00 98.3 F 96 15 190/118 99 10/29/17 23:00 77 15 172/107 99 10/29/17 22:00 78 15 170/115 98 10/29/17 21:00 80 15 161/106 97 10/29/17 20:00 98.0 F 87 15 168/98 99 10/29/17 19:00 76 17 186/104 100 10/29/17 18:50 97.7 F 85 16 181/116 99 10/29/17 16:27 97.4 F L 76 18 200/123 100 10/29/17 15:17 97.4 F L 76 18 200/128 98 10/29/17 12:55 98.4 F 87 18 175/113 99 Intake and Output 10/29/17 10/30/17 10/30/17 22:59 06:59 14:59 Intake Total 230 50 200 Output Total 0 2000 0 Balance 230 -1950 200 Intake: IV 230 50 0 Sodium Chloride 0.9% 250 30 50 0 ml @ 0 mls/hr IV .[facility] Rx#:[id number] Oral 200 Output: Urine 0 0 0 Other 1999 Other: # Voids 0 0 0 Weight 88 kg 86.5 kg - Constitutional General appearance: average body habitus, no acute distress - EENT Eyes: EOMI, PERRLA ENT: hearing grossly normal Ears: bilateral: normal - Neck Neck: normal ROM Carotids: bilateral: upstroke normal Thyroid: bilateral: normal size - Respiratory Respiratory: bilateral: CTA - Cardiovascular Rhythm: regular Heart sounds: normal: S1, S2 - Gastrointestinal General gastrointestinal: no organomegaly, soft, no tenderness - Integumentary Integumentary: normal turgor - Neurologic Neurologic: CNII-XII intact - Musculoskeletal Musculoskeletal: gait normal - Psychiatric Psychiatric: A&O x's 3, appropriate affect, intact judgment & insight Results - Laboratory Findings CBC and BMP: 10/30/17 04:09 10/30/17 04:09 Abnormal lab findings: Abnormal Labs 10/29/17 10/29/17 10/29/17 13:27 13:27 15:50 RBC 3.59 L Hgb 11.5 L Hct 35.6 L Lymphocytes # 0.8 L Potassium 6.3 H* 6.3 H* Carbon Dioxide 19 L BUN 99 H* Creatinine 25.61 H* Glucose Phosphorus 6.3 H Magnesium 3.7 H 10/30/17 10/30/17 04:09 04:09 RBC 3.69 L Hgb 11.8 L Hct 36.8 L Lymphocytes # 0.5 L Potassium 7.1 H* Carbon Dioxide 20 L BUN 73 H Creatinine 20.60 H* Glucose 138 H Phosphorus 4.8 H Magnesium 3.1 H Assessment and Plan Assessment: Impression: #1 Hyperkalemia secondary to acute on chronic renal failure with missed dialysis. #2 Acute on chronic renal failure secondary to hypertension to be receiving treatments Sunday. Current creatinine 20.6. #3 Infected right subclavian permacath with subsequent removal. He smells of a left subclavian permacath on 10/29/2017 #4 Bacteremia secondary to Enterobacter aerogenes on 10/24/2017. #5 Hypertension. #6 History of chronic tobacco dependence, marijuana use. Plan: The patient was seen and evaluated by Dr. Mallory. Chest x-ray and labs were reviewed. The patient will be receiving hemodialysis today which show washout his potassium and bring it back within normal limits. If this is possible he may be will be discharged once cleared by nephrology. He is educated regarding the importance of compliance. He is quite adamant about leaving today. We'll await follow-up labs. He did not complete a course of antibiotics following his previous blood culture positive for Enterobacter aerogenes on 10/24/2017. Blood cultures from October 25 and catheter cultures revealed no growth. We have a page out to infectious disease for recommendations. I, the cosigning physician, performed a history & physical examination of the patient. Lungs sounds are clear. Maintaining good O2 saturations in the 90s on room air. I discussed the assessment and plan of care with my nurse practitioner, Rupal Alvarez. I attest to the above consultation as dictated by her.
[2017-10-30 12:30] VITALS: TEMP 98.6
[2017-10-30] MEDS ORDERED: amLODIPine 5 MG TAB PO SCH (14:30)
--- NOTE | 2017-10-30 14:37 | HP ---
HISTORY AND PHYSICAL DATE OF ADMISSION: 10/29/2017. CHIEF COMPLAINT: Hyperkalemia and end-stage renal failure. HISTORY OF PRESENT ILLNESS: This is another admission for this 37-year-old -Citizen Of [place] male. He walked out of the hospital the night before coming back to the emergency room and was admitted. Recent was in for a dialysis and sepsis due to infected catheter. REVIEW OF SYSTEMS: He is having no other symptoms at this time including fever, chills, nausea, vomiting, shortness of breath, chest pain, abdominal pain, etc. PAST MEDICAL HISTORY/FAMILY HISTORY/SOCIAL HISTORY: All otherwise unremarkable or unchanged. PHYSICAL EXAM: Blood pressure 156/92 with a pulse of 70, respirations of 38. He is afebrile. GENERAL: He appeared to be well developed, well nourished, no acute distress. Skin color is normal skin is warm, dry. Lymph nodes not enlarged. HEENT: Normal. CHEST: Clear. He had a dressing over the right upper anterior chest where his catheter had been removed. There is a new one on the left. CARDIAC: Exam is normal. ABDOMEN: Soft, nontender. EXTREMITIES: Normal. NEUROLOGIC: Intact. IMPRESSION: 1. End-stage renal disease. 2. Recent episode of sepsis secondary to dialysis catheter. PLAN: 1. Bed rest. 2. IV fluids. 3. Consult Nephrology. MMMELBAL / MARYN: [id number] /
--- NOTE | 2017-10-30 15:55 | CONS ---
CONSULTATION REASON FOR CONSULT: End-stage renal disease. HISTORY OF PRESENT ILLNESS: The patient is a 37-year-old male with end-stage renal disease, on hemodialysis on a Sunday, Sunday, Sunday schedule. He left AMA from his last admit. He was admitted with having missed dialysis on his last treatment and had bacteremia with blood cultures growing Enterobacter aerogenes. The PermCath was discontinued. The patient was supposed to have a new catheter placed but he left AMA. He came back yesterday and he got a new catheter by Dr. Daly. Patient was dialyzed yesterday and is currently on dialysis as well today. His potassium is 7.1 today. It was at 6.3 yesterday. PAST MEDICAL HISTORY: End-stage renal disease, hypertension, CKD mineral bone disorder. PAST SURGICAL HISTORY: AV fistula and grafts in the left arm. SOCIAL HISTORY: Positive for smoking and history of marijuana. Patient is a former smoker. No history of other drug abuse. MEDICATIONS: Medications at home included Sensipar, Renvela and Nephrocaps. ALLERGIES: None. EXAMINATION: On examination; patient is currently seen on hemodialysis, tolerating his treatment well. Blood pressure was 165/113, heart rate of 90 per minute. He is afebrile. Examination of the heart: S1 and S2. Examination of the lungs: Bilateral breath sounds are heard. Abdomen is soft, nontender. Examination lower extremities shows no evidence of edema. NEWS ANCHOR exam is grossly intact. LABS: Revealed potassium of 7.1 this morning. His serum creatinine was 20.6, sodium 137, hemoglobin 11.8. ASSESSMENT: 1. End-stage renal disease, on hemodialysis on a Sunday, Sunday, Sunday schedule at the [facility]. 2. Noncompliance with dialysis secondary transportation issues which is currently being worked on. 3. Severe hyperkalemia associated with the not having had dialysis, currently improved. The patient was dialyzed last night. He is currently being dialyzed again today. 4. Hypertension. The patient has received IV medications. Usually the blood pressure drops at the end of treatment. Since the blood pressure still remains elevated I will add Norvasc 5 mg daily. PLAN: The patient can be discharged post dialysis today once the potassium has decreased, which should be checked about 3 to 4 hours after the dialysis. He is advised against any noncompliance with dialysis and he is also advised that if he is discharged from the [facility] secondary to noncompliance, he will not be able to get in at any other unit close by. The patient says he is actively working to arrange for transportation. Thank you for this consultation. ELISEO / NIXON: [id number] /
--- NOTE | 2017-10-30 16:13 | DS ---
DISCHARGE SUMMARY CHIEF COMPLAINT: End stage renal disease. HISTORY OF PRESENT ILLNESS: This gentleman has been in and out of the hospital and is extremely noncompliant. He walked out at 7 o'clock one night and back in the same day. He agreed to dialysis and this is to be done today and then he stated he is going to sign himself out. FINAL DIAGNOSES: 1. End-stage renal disease. 2. Recent episode of hemodialysis catheter, sepsis. OPERATION: None. CONSULTATION: Nephrology. He signed himself out AGAINST MEDICAL ADVICE. He was given a prescription for Cipro 500 twice a day (20-0). MMODL / IJN: [id number] /
[2017-10-30 16:17] VITALS: BP 179/110; PULSE 97; RESP 20
--- NOTE | 2017-11-06 09:14 | CDI ---
Last Revision, March 2017 Documentation Clarification Form Date: 11/06/17 From: Leighann Day Phone: If you have a question regarding this query, please contact Melody Valencia at [phone] between 8am and 5pm. Admit Date: 10/29/2017 2:25:00 PM Patient Name: Brien Elliott Visit Number: [id number] Discharge Date: 10/30/17 ATTENTION: The Clinical Documentation Specialists (CDI) and [facility] Coding Staff appreciate your assistance in clarifying documentation. Please respond to the clarification below the line at the bottom and electronically sign. The CDI & [facility] Coding staff will review the response and follow-up if needed. Please note: Queries are made part of the Legal Health Record. If you have any questions, please contact the author of this message via ITS. Dr. Samanhta Leone Acute on chronic renal failure was documented in Dr. Martell's consult note. End stage renal disease is documented in your notes and in Dr. Gordon's notes. History/Risk Factors: Patienet was admitted for hyperkalemia due to missed dialysis. Patient has a history of ESRD, hypertension and noncompliance with dialysis secondary to transportation issues. Clinical Indicators: Hyperkalemia Curent BUN/Cr/GFR: 99/25.61/2 Hemodialysis status: On hemodialysis on a M,W,F schedule Treatment: Hemodialysis In order to capture the severity of condition, please clarify if the condition signifies: Acute renal failure, Please specify etiology (if known): Acute kidney injury Acute on chronic renal failure CKD Stage 1 GFR >90 CKD Stage 2 GFR 60-89 CKD Stage 3 GFR 30-59 CKD Stage 4 GFR 15-29 CKD Stage 5 GFR <15 ESRD Chronic renal failure/Chronic Kidney disease (CKD) please stage if known CKD Stage 1 GFR >90 CKD Stage 2 GFR 60-89 CKD Stage 3 GFR 30-59 CKD Stage 4 GFR 15-29 CKD Stage 5 GFR <15 ESRD Other, please specify Unable to determine MTDD
== END 2017-10-30 17:01 | disposition left against medical advice (07) | DRG 682 ==
LOC: EC 12:18 → 6SEL 14:25 → 6ICU 18:04
PROVIDERS: ADMIT Family Medicine; ATTEND Family Medicine
PROC: 02HV33Z Insertion of Infusion Device into Superior Vena Cava, Percutaneous Approach (ICD-10-PCS; 2017-10-29 16:42)
PROC: 5A1D70Z Performance of Urinary Filtration, Intermittent, Less than 6 Hours Per Day (ICD-10-PCS; principal; 2017-10-30)
DX: I12.0 Hypertensive chronic kidney disease with stage 5 chronic kidney disease or end stage renal disease (principal); N18.6 End stage renal disease; E87.5 Hyperkalemia; E83.89 Other disorders of mineral metabolism; Z99.2 Dependence on renal dialysis; Z91.19 Patient's noncompliance with other medical treatment and regimen; Z91.15 Patient's noncompliance with renal dialysis; Z87.891 Personal history of nicotine dependence; Z79.899 Other long term (current) drug therapy; Z82.49 Family history of ischemic heart disease and other diseases of the circulatory system
CPT/HCPCS: 36415; 36558; 71045; 71046; 75827; 76937; 77001; 80048; 80053; 83735; 84100; 84132; 85025; 87040; 90935; 93005; 96365; 99285

== ENCOUNTER 2017-11-04 18:46 | Emergency (ER) | payer OTHER ==
[2017-11-04 19:01] VITALS: BP 157/105; PULSE 103; RESP 16; TEMP 98.8
--- NOTE | 2017-11-04 19:29 | ED ---
Recheck HPI - General Chief Complaint: Recheck/Abnormal Lab/Rx Stated Complaint: Needs new dressing Time Seen by Provider: 11/04/17 19:04 Source: patient, RN notes reviewed, old records reviewed Mode of arrival: ambulatory Limitations: no limitations - History of Present Illness Initial Comments: This Patient is a pleasant 37-year-old male with chief complaint of needing his dialysis dressing changed. He reports that he was sweating today due to the heat and the adhesive portion of the Tegaderm became loose. Patient states that he did receives dialysis Wednesdays and Fridays. He states that he is going tomorrow. Patient has had no other symptoms at this time. Patient reports that just is here for a dressing change. - Related Data Home Medications Medication Instructions Recorded Confirmed Cinacalcet HCl [Sensipar] 60 mg PO HS 09/21/17 10/29/17 Folic Acid-Vit B Complex-Vit C 1 cap PO DAILY 09/21/17 10/29/17 [Nephrocaps] Sevelamer [Renvela] 4,000 mg PO AC-TID 09/21/17 10/29/17 Previous Rx's Medication Instructions Recorded Ciprofloxacin [Cipro Susp] 500 mg PO Q12HR #20 ml 10/30/17 Pantoprazole [Protonix] 40 mg PO AC-BRKFST tablet. 10/30/17 Allergies Allergy/AdvReac Type Severity Reaction Status Date / Time No Known Allergies Allergy Verified 10/29/17 13:04 Review of Systems ROS Statement: Those systems with pertinent positive or pertinent negative responses have been documented in the HPI. ROS Other: All systems not noted in ROS Statement are negative. Past Medical History Past Medical History: Dialysis, Hypertension, Renal Disease Additional Past Medical History / Comment(s): kidney disease History of Any Multi-Drug Resistant Organisms: None Reported Additional Past Surgical History / Comment(s): fistula/graft lt arm, surgery on kidneys as an pt not sure exactly what was done, port rt chest placed when his fistula wasn't working. Past Anesthesia/Blood Transfusion Reactions: No Reported Reaction Past Psychological History: No Psychological Hx Reported Smoking Status: Former smoker Past Alcohol Use History: None Reported Past Drug Use History: Marijuana - Past Family History Mother Additional Family Medical History / Comment(s): bronchitis Father Family Medical History: Hypertension General Exam - General Exam Comments Initial Comments: Patient is a pleasant 37-year-old male. Alert and oriented. No significant distress. Limitations: no limitations Head exam: Present: atraumatic, normocephalic, normal inspection Eye exam: Present: normal appearance, PERRL, EOMI. Absent: scleral icterus, conjunctival injection, periorbital swelling ENT exam: Present: normal exam, mucous membranes moist Neck exam: Present: normal inspection. Absent: tenderness, meningismus, lymphadenopathy Respiratory exam: Present: normal lung sounds bilaterally. Absent: respiratory distress, wheezes, rales, rhonchi, stridor Cardiovascular Exam: Present: regular rate, normal rhythm, normal heart sounds, other ( has evidence of dialysis port on the left chest wall. The dressing is folded up and nonadherent due to sweating today.). Absent: systolic murmur, diastolic murmur, rubs, gallop, clicks GI/Abdominal exam: Present: soft, normal bowel sounds. Absent: distended, tenderness, guarding, rebound, rigid Psychiatric exam: Present: normal affect, normal mood Skin exam: Present: warm, dry, intact, normal color. Absent: rash Course Vital Signs 11/04/17 18:57 Temperature 98.8 F Pulse Rate 103 H Respiratory 16 Rate Blood Pressure 157/105 O2 Sat by Pulse 97 Oximetry Medical Decision Making - Medical Decision Making 37 she'll male who receives dialysis Sunday, and Fridays presents today needing dialysis site dressing change. He was sweating today and the adhesive aspect of the Tegaderm has fallen off. Patient received a new dressing. He will going to his dialysis tomorrow morning. We discussed the importance of follow-up with dialysis treatment. Patient understands treatment plan will comply. Return parameters were discussed. Disposition Clinical Impression: Dressing change Disposition: HOME SELF-CARE Condition: Good Is patient prescribed a controlled substance at d/c from ED?: No When asked, does pt state using other controlled substances?: No If prescribed controlled substance>3 days was MAPS reviewed?: No If opioid is for acute pain is fill amount 7 days or less?: No If Rx opioid, was Start Talking consent form obtained?: No Referrals: Vinnie Gordon MD [Primary Care Provider] - 1-2 days Time of Disposition: 19:29
== END 2017-11-04 19:40 | disposition home or self-care (01) ==
LOC: EC 18:46
DX: Z48.00 Encounter for change or removal of nonsurgical wound dressing (principal); I12.9 Hypertensive chronic kidney disease with stage 1 through stage 4 chronic kidney disease, or unspecified chronic kidney disease; N18.9 Chronic kidney disease, unspecified; Z87.891 Personal history of nicotine dependence; Z79.899 Other long term (current) drug therapy; Z99.2 Dependence on renal dialysis
CPT/HCPCS: 99282

== ENCOUNTER 2022-04-20 11:14 | Emergency (ER) | payer OTHER ==
[2022-04-20 11:20] VITALS: RESP 16
[2022-04-20 12:16] LABS: Basophils % (A) 0 %; Eosinophils # (A) 0.2 k/uL (0-0.7); Eosinophils % (A) 5 %; HGB 14.6 gm/dL (13.0-17.5); Lymphocytes # (A) 0.7 k/uL (1.0-4.8); Lymphocytes % (A) 20 %; MCH 32.6 pg (25.0-35.0); MCHC 32.5 g/dL (31.0-37.0); MCV 100.4 fL (80.0-100.0); Macrocytosis Slight; Mean Platelet Volume 8.7; Monocytes # (A) 0.2 k/uL (0-1.0); Monocytes % (A) 6 %; Neutrophils # (A) 2.4 k/uL (1.3-7.7); Neutrophils % (A) 67 %; Platelet Count 116 k/uL (150-450); RBC 4.48 m/uL (4.30-5.90); RDW 14.3 % (11.5-15.5); WBC 3.6 k/uL (3.8-10.6)
[2022-04-20 12:18] LABS: Partial Thromboplastin Time 27.2 sec (22.0-30.0); Prothrombin Time 10.3 sec (9.0-12.0)
[2022-04-20 12:20] LABS: Albumin 4.2 g/dL (3.5-5.0); Calcium 8.2 mg/dL (8.4-10.2); Phosphorus 8.4 mg/dL (2.5-4.5); Total Bilirubin 0.7 mg/dL (0.2-1.3); Total Protein 7.5 g/dL (6.3-8.2)
[2022-04-20 12:30] LABS: Potassium 5.3 mmol/L (3.5-5.1)
--- NOTE | 2022-04-20 12:44 | XR ---
EXAMINATION TYPE: XR chest 2V DATE OF EXAM: 04/20/2022 COMPARISON: 11/08/2017 INDICATION: Difficulty breathing TECHNIQUE: Frontal and lateral views of the chest are obtained. FINDINGS: The heart size is normal. The pulmonary vasculature is normal. The lungs are clear. Stents are present left axillary region and along the right chest wall IMPRESSION: 1. No acute pulmonary process.
[2022-04-20] MEDS ORDERED: NON FORMULARY DRUG (Clonidine Hcl [Catapres] 0.3 MG Tablet) PO PRN (13:33)
[2022-04-20] MEDS ORDERED: SEVELAMER 800 MG TAB PO PRN (13:33)
--- NOTE | 2022-04-20 13:55 | P.HPIM ---
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 He came to [place] for visiting and he has no transportation get him back, he was complaining of some mild dyspnea so he was advised to come to emergency room, no significant tachypnea, no chest pain or coughing. No abdominal pain or vomiting or diarrhea. Patient does not make urine. No headache weakness or numbness or dizziness. He smokes 2-3 cigarettes per day and he was consulted with an increased but declines nicotine patch. No alcohol. Little cannabis as per patient. Vitals are stable. WBC 3.6, platelet count 116K, rest of CBC is unremarkable INR is 1.0. Potassium 5.3, creatinine 22, rest of BMP and liver enzymes is unremarkable. Review of Systems Review of systems CONSTITUTIONAL: No fever, no malaise, no fatigue. HEENT: No recent visual problems or hearing problems. Denied any sore throat. CARDIOVASCULAR: No orthopnea, PND, no palpitations, no syncope. PULMONARY: No shortness of breath, no cough, no hemoptysis. GASTROINTESTINAL: No diarrhea, no nausea, no vomiting, no abdominal pain. Normoactive bowel sounds. NEUROLOGICAL: No headaches, no weakness, no numbness. HEMATOLOGICAL: Denies any bleeding or petechiae. GENITOURINARY: Denies any burning micturition, frequency, or urgency. MUSCULOSKELETAL/RHEUMATOLOGICAL: Denies any joint pain, swelling, or any muscle pain. ENDOCRINE: Denies any polyuria or polydipsia. Past Medical History Past Medical History: Dialysis, Hypertension, Renal Disease Additional Past Medical History / Comment(s): kidney disease History of Any Multi-Drug Resistant Organisms: None Reported Additional Past Surgical History / Comment(s): fistula/graft lt arm, surgery on kidneys as an infant pt not sure exactly what was done, port rt chest placed when his fistula wasn't working. Past Anesthesia/Blood Transfusion Reactions: No Reported Reaction Past Psychological History: No Psychological Hx Reported Past Alcohol Use History: None Reported Past Drug Use History: Marijuana - Past Family History Mother Additional Family Medical History / Comment(s): bronchitis Father Family Medical History: Hypertension Medications and Allergies Home Medications Medication Instructions Recorded Confirmed Type Folic Acid-Vit B Complex-Vit C 1 cap PO DAILY 09/21/17 04/20/22 History [Nephrocaps] Sevelamer [Renvela] 3,200 - 4,800 mg PO 5XD PRN 09/21/17 04/20/22 History Cinacalcet HCl [Sensipar] 90 mg PO DAILY 04/20/22 04/20/22 History Omeprazole 20 mg PO DAILY PRN 04/20/22 04/20/22 History cloNIDine HCL [Catapres] 0.3 mg PO TID PRN 04/20/22 04/20/22 History Allergies Allergy/AdvReac Type Severity Reaction Status Date / Time No Known Allergies Allergy Verified 04/20/22 12:18 Physical Exam Vitals: Vital Signs Temp Pulse Resp BP Pulse Ox 04/20/22 11:15 97.7 F 65 16 103/59 94 L Intake and Output 04/19/22 04/20/22 04/20/22 22:59 06:59 14:59 Other: Weight 77.111 kg GENERAL: The patient is alert and oriented x3, not in any acute distress. Well developed, well nourished. HEENT: Pupils are round and equally reacting to light. EOMI. No scleral icterus. No conjunctival pallor. Normocephalic, atraumatic. No pharyngeal erythema. No thyromegaly. CARDIOVASCULAR: S1 and S2 present. No murmurs, rubs, or gallops. PULMONARY: Chest is clear to auscultation, no wheezing or crackles. ABDOMEN: Soft, nontender, nondistended, normoactive bowel sounds. No palpable organomegaly. MUSCULOSKELETAL: No joint swelling or deformity. -EXTREMITIES: No cyanosis, clubbing, or pedal edema. Right arm fistula NEUROLOGICAL: Gross neurological examination did not reveal any focal deficits. SKIN: No rashes. no petechiae. Results CBC & Chem 7: 04/20/22 11:55 04/20/22 11:55 Labs: Abnormal Lab Results - Last 24 Hours (Table) 04/20/22 04/20/22 Range/Units 11:55 11:55 WBC 3.6 L (3.8-10.6) k/uL MCV 100.4 H (80.0-100.0) fL Plt Count 116 L (150-450) k/uL Lymphocytes # 0.7 L (1.0-4.8) k/uL Potassium 5.3 H (3.5-5.1) mmol/L BUN 84 H (9-20) mg/dL Creatinine 22.38 H* (0.66-1.25) mg/dL Calcium 8.2 L (8.4-10.2) mg/dL Phosphorus 8.4 H (2.5-4.5) mg/dL AST 13 L (17-59) U/L Assessment and Plan Assessment: End-stage renal disease, missed hemodialysis Nicotine dependence Hypertension Mild hyperkalemia Chest x-ray: No acute pulmonary process. Plan: Continue with hemodialysis Consults nephrology team farmworker rice on the case Labs and medication were reviewed.. Continue same treatment. Continue with symptomatic treatment. Resume home medication. Monitor labs and vitals. DVT and GI prophylaxis. Further recommendations as per clinical course of the patient DVT prophylaxis: Subcutaneous heparin GI Prophylaxis: Pepcid PT/OT: Pending Prognosis is guarded
[2022-04-20 14:23] VITALS: BP 148/93; PULSE 77; TEMP 97.8
[2022-04-20] MEDS ORDERED: HEPARIN SODIUM,PORCINE/PF 5,000 UNIT/0.5 ML SYRINGE SQ SCH (21:00)
[2022-04-20] MEDS ORDERED: FAMOTIDINE 20 MG/2 ML VIAL IV SCH (21:00)
[2022-04-21] MEDS ORDERED: NON FORMULARY DRUG (Cinacalcet Hcl [Sensipar] 90 MG Tablet) PO SCH (09:00)
[2022-04-21] MEDS ORDERED: FOLIC ACID-VIT B COMPLEX-VIT C 1 CAP PO SCH (09:00)
--- NOTE | 2022-05-08 16:02 | ED ---
General Adult HPI - General Chief complaint: Recheck/Abnormal Lab/Rx Stated complaint: needs dialysis Time Seen by Provider: 04/20/22 11:27 Source: patient Mode of arrival: ambulatory Limitations: no limitations - History of Present Illness Initial comments: Patient is a 42-year-old male with end-stage renal disease on hemodialysis who presents to the emergency department seeking dialysis. Patient has been on hemodialysis for 17 years. He\ recently moved to the [facility] from [place]. His dialysis center is in [place] which he goes to on Sunday//Sunday. Patient states he missed his Sunday appointment due to transportation issues. Patient also missed dialysis today. Feels that his extremities are swollen.. Denies chest pain, shortness of breath, headache, weakness. - Related Data Home Medications Medication Instructions Recorded Confirmed Folic Acid-Vit B Complex-Vit C 1 cap PO DAILY 09/21/17 04/20/22 [Nephrocaps] Sevelamer [Renvela] 3,200 - 4,800 mg PO 5XD PRN 09/21/17 04/20/22 Cinacalcet HCl [Sensipar] 90 mg PO DAILY 04/20/22 04/20/22 Omeprazole 20 mg PO DAILY PRN 04/20/22 04/20/22 cloNIDine HCL [Catapres] 0.3 mg PO TID PRN 04/20/22 04/20/22 Allergies Allergy/AdvReac Type Severity Reaction Status Date / Time No Known Allergies Allergy Verified 04/20/22 12:18 Review of Systems ROS Statement: Those systems with pertinent positive or pertinent negative responses have been documented in the HPI. ROS Other: All systems not noted in ROS Statement are negative. Past Medical History Past Medical History: Dialysis, Hypertension, Renal Disease Additional Past Medical History / Comment(s): kidney disease History of Any Multi-Drug Resistant Organisms: None Reported Additional Past Surgical History / Comment(s): fistula/graft lt arm, surgery on kidneys as an infant pt not sure exactly what was done, port rt chest placed when his fistula wasn't working. Past Anesthesia/Blood Transfusion Reactions: No Reported Reaction Past Psychological History: No Psychological Hx Reported Past Alcohol Use History: None Reported Past Drug Use History: Marijuana - Past Family History Mother Additional Family Medical History / Comment(s): bronchitis Father Family Medical History: Hypertension General Exam Limitations: no limitations General appearance: alert, in no apparent distress Head exam: Present: atraumatic, normocephalic, normal inspection Neck exam: Present: normal inspection. Absent: tenderness, meningismus, lymphadenopathy Respiratory exam: Present: normal lung sounds bilaterally. Absent: respiratory distress, wheezes, rales, rhonchi, stridor Cardiovascular Exam: Present: regular rate, normal rhythm, normal heart sounds. Absent: systolic murmur, diastolic murmur, rubs, gallop, clicks Extremities exam: Present: normal inspection Neurological exam: Present: alert, oriented X3, CN II-XII intact Psychiatric exam: Present: normal affect, normal mood Skin exam: Present: warm, dry, intact, normal color. Absent: rash Course Vital Signs 04/20/22 04/20/22 11:15 14:20 Temperature 97.7 F 97.8 F Pulse Rate 65 77 Respiratory 16 Rate Blood Pressure 103/59 148/93 O2 Sat by Pulse 94 L 100 Oximetry Medical Decision Making - Medical Decision Making Was pt. sent in by a medical professional or institution (Dr. PA, VB NET DEVELOPER, urgent care, hospital, or detention...) When possible be specific @ -[No] Did you speak to anyone other than the patient for history (EMS, parent, family, police, friend...)? What history was obtained from this source @ -[No] Did you review nursing and triage notes (agree or disagree)? Why? @ -[I reviewed and agree with nursing and triage notes] Were old charts reviewed (outside hosp., previous admission, EMS record, old EKG, old radiological studies, urgent care reports/EKG's, detention records)? Report findings @ -[No old charts were reviewed] Differential Diagnosis (chest pain, altered mental status, abdominal pain women, abdominal pain men, vaginal bleeding, weakness, fever, dyspnea, syncope, headache, dizziness, GI bleed, back pain, seizure, CVA, palpatations, mental health)? @ -[not applicable] EKG interpreted by me (3pts min.). @ -[As above] X-rays interpreted by me (1pt min.). @ -[None done] CT interpreted by me (1pt min.). @ -[None done] U/S interpreted by me (1pt. min.). @ -[None done] What testing was considered but not performed or refused? (CT, X-rays, U/S, labs)? Why? @ -[None] What meds were considered but not given or refused? Why? @ -[None] Did you discuss the management of the patient with other professionals (professionals i.e. , PA, VB NET DEVELOPER, lab, RT, psych nurse, manager social services, financial aid manager, teacher, railroad police officer, rn case management)? Give summary @ -[No] Was smoking cessation discussed for >3mins.? @ I discussed smoking cessation for greater than 3 minutes. The risk of smoking were discussed with the patient including but not limited to risks of cancer, stroke, coronary artery disease and COPD. Also discussed with patient were multiple methods of quitting smoking. Lastly we discussed the financial cost of smoking. Was critical care preformed (if so, how long)? @ -[No] Were there social determinants of health that impacted care today? How? (Homele ssness, low income, unemployed, alcoholism, drug addiction, transportation, low edu. Level, literacy, decrease access to med. care, alf, rehab)? @ -[No] Was there de-escalation of care discussed even if they declined (Discuss DNR or withdrawal of care, Hospice)? DNR status @ -[No] What co-morbidities impacted this encounter? (DM, HTN, Smoking, COPD, CAD, Cancer, CVA, ARF, Chemo, Hep., AIDS, mental health diagnosis, sleep apnea, morbid obesity)? @ -[None] Was patient admitted / discharged? Hospital course, mention meds given and route, prescriptions, significant lab abnormalities, going to OR and other pertinent info. @ -This is a 42-year-old male presenting for hemodialysis. Potassium mildly elevated at 5.3. Creatinine very high at 22.38, BUN 84. Discussed admission with Dr. Saldaña who accepts-nephrology on consult. Patient was admitted and was a hold in the ER. Patient left AMA. Undiagnosed new problem with uncertain prognosis? @ -[No] Drug Therapy requiring intensive monitoring for toxicity (Heparin, Nitro, Insulin, Cardizem)? @ -[No] Were any procedures done? @ -[No] Diagnosis/symptom? @ -ESRD on dialysis Acute, or Chronic, or Acute on Chronic? @ -acute on chronic Uncomplicated (without systemic symptoms) or Complicated (systemic symptoms)? @ -uncomplicated Side effects of treatment? @ -[No] Exacerbation, Progression, or Severe Exacerbation? @ -[No] Poses a threat to life or bodily function? How? (Chest pain, [place], [place], pneumonia, PE, COPD, DKA, ARF, appy, cholecystitis, CVA, Diverticulitis, Homicidal, Suicidal, threat to staff... and all critical care pts) @ -[No] Dr. latham is my attending - Lab Data Result diagrams: 04/20/22 11:55 04/20/22 11:55 Lab Results 04/20/22 04/20/22 04/20/22 Range/Units 11:55 11:55 11:55 WBC 3.6 L (3.8-10.6) k/uL RBC 4.48 (4.30-5.90) m/uL Hgb 14.6 (13.0-17.5) gm/dL Hct 45.0 (39.0-53.0) % MCV 100.4 H (80.0-100.0) fL MCH 32.6 (25.0-35.0) pg MCHC 32.5 (31.0-37.0) g/dL RDW 14.3 (11.5-15.5) % Plt Count 116 L (150-450) k/uL MPV 8.7 Neutrophils % 67 % Lymphocytes % 20 % Monocytes % 6 % Eosinophils % 5 % Basophils % 0 % Neutrophils # 2.4 (1.3-7.7) k/uL Lymphocytes # 0.7 L (1.0-4.8) k/uL Monocytes # 0.2 (0-1.0) k/uL Eosinophils # 0.2 (0-0.7) k/uL Basophils # 0.0 (0-0.2) k/uL Macrocytosis Slight PT 10.3 (9.0-12.0) sec INR 1.0 (<1.2) APTT 27.2 (22.0-30.0) sec Sodium 137 (137-145) mmol/L Potassium 5.3 H (3.5-5.1) mmol/L Chloride 102 (98-107) mmol/L Carbon Dioxide 22 (22-30) mmol/L Anion Gap 13 mmol/L BUN 84 H (9-20) mg/dL Creatinine 22.38 H* (0.66-1.25) mg/dL Est GFR (CKD-EPI)AfAm 3 (>60 ml/min/1.73 sqM) Est GFR (CKD-EPI)NonAf 2 (>60 ml/min/1.73 sqM) Glucose 89 (74-99) mg/dL Calcium 8.2 L (8.4-10.2) mg/dL Phosphorus 8.4 H (2.5-4.5) mg/dL Total Bilirubin 0.7 (0.2-1.3) mg/dL AST 13 L (17-59) U/L ALT 11 (4-49) U/L Alkaline Phosphatase 91 (38-126) U/L Total Protein 7.5 (6.3-8.2) g/dL Albumin 4.2 (3.5-5.0) g/dL Disposition Clinical Impression: End stage renal failure on dialysis Disposition: Left Against Medical Advice Referrals: Vinnie Gordon MD [Primary Care Provider] - 1-2 days
== END 2022-04-20 15:56 | disposition left against medical advice (07) ==
LOC: EC 11:14
DX: I12.0 Hypertensive chronic kidney disease with stage 5 chronic kidney disease or end stage renal disease (principal); N18.6 End stage renal disease; F12.90 Cannabis use, unspecified, uncomplicated; Z79.899 Other long term (current) drug therapy; Z53.29 Procedure and treatment not carried out because of patient's decision for other reasons; Z99.2 Dependence on renal dialysis
CPT/HCPCS: 36415; 71046; 80053; 84100; 85025; 85610; 85730; 96360; 99283; 99284

== ENCOUNTER 2022-08-04 14:19 | Inpatient (IN) | payer OTHER ==
--- NOTE | 2022-08-04 15:39 | ED ---
General Adult HPI - General Chief complaint: Recheck/Abnormal Lab/Rx Stated complaint: BLOOD CLOT-DIALYSIS Time Seen by Provider: 08/04/22 14:40 Source: patient Mode of arrival: ambulatory Limitations: no limitations - History of Present Illness Initial comments: Dictation was produced using [employer] dictation software. please excuse any grammatical, word or spelling errors. Chief Complaint: 42-year-old ESRD patient presents emergency Department with painful lump next to his dialysis shunt in his right upper extremity History of Present Illness: 42-year-old female states that he noticed a lump on his right upper extremity 10 days ago. States that at the halfway they tried to do an ultrasound. Patient's chin has been working well. He gets dialysis Sunday. He gets dialysis. Patient states that it's tender. Denies a fever, chills or night sweats. The ROS documented in this emergency department record has been reviewed and confirmed by me. Those systems with pertinent positive or negative responses have been documented in the HPI. All other systems are other negative and/or noncontributory. - Related Data Home Medications Medication Instructions Recorded Confirmed Sevelamer [Renvela] 4,000 mg PO 5XD 09/21/17 08/04/22 Cinacalcet HCl [Sensipar] 90 mg PO HS 04/20/22 08/04/22 Omeprazole 20 mg PO DAILY 04/20/22 08/04/22 amLODIPine [Norvasc] 10 mg PO DAILY 08/04/22 08/04/22 cloNIDine HCL [Catapres] 0.2 mg PO TID 08/04/22 08/04/22 Allergies Allergy/AdvReac Type Severity Reaction Status Date / Time No Known Allergies Allergy Verified 08/04/22 15:31 Review of Systems ROS Statement: Those systems with pertinent positive or pertinent negative responses have been documented in the HPI. ROS Other: All systems not noted in ROS Statement are negative. Past Medical History Past Medical History: Dialysis, Hypertension, Renal Disease Additional Past Medical History / Comment(s): kidney disease- dialysis t/t/s dialysis History of Any Multi-Drug Resistant Organisms: None Reported Additional Past Surgical History / Comment(s): fistula/graft lt arm, surgery on kidneys as an infant pt not sure exactly what was done, port rt chest placed when his fistula wasn't working. Past Anesthesia/Blood Transfusion Reactions: No Reported Reaction Past Psychological History: No Psychological Hx Reported Smoking Status: Former smoker Past Alcohol Use History: None Reported Past Drug Use History: Marijuana - Past Family History Mother Additional Family Medical History / Comment(s): bronchitis Father Family Medical History: Hypertension General Exam - General Exam Comments Initial Comments: PHYSICAL EXAM: General Impression: Alert and oriented x3, not in acute distress HEENT: Normocephalic atraumatic, extra-ocular movements intact, pupils equal and reactive to light bilaterally, mucous membranes moist. Cardiovascular: Heart regular rate and rhythm Chest: Able to complete full sentences, no retractions, no tachypnea Abdomen: abdomen soft, non-tender, non-distended, no organomegaly Musculoskeletal: Pulses present and equal in all extremities, no peripheral edema Motor: no focal deficits noted Right upper extremity: Shunt site has palpable thrill and audible bruit, there is a very mild area of swelling. Nonindurated. No redness. Not pulsatile. Area measures approximately 2 x 2 centimeters lateral to the shunt site Neurological: CN II-XII grossly intact, no focal motor or sensory deficits noted Skin: Intact with no visualized rashes Psych: Normal affect and mood Limitations: no limitations Course Vital Signs 08/04/22 08/04/22 08/04/22 14:37 15:53 17:41 Temperature 98.0 F Pulse Rate 57 L 53 L 52 L Respiratory 20 18 18 Rate Blood Pressure 137/62 104/37 120/37 O2 Sat by Pulse 100 100 99 Oximetry 08/04/22 08/04/22 08/04/22 18:49 19:49 20:00 Temperature Pulse Rate 55 L 62 67 Respiratory 18 Rate Blood Pressure 120/42 O2 Sat by Pulse 97 Oximetry Medical Decision Making - Medical Decision Making Was pt. sent in by a medical professional or institution (, PA, GAMEPLAY ENGINEER, urgent care, hospital, or correction...) When possible be specific @ -[facility] Did you speak to anyone other than the patient for history (EMS, parent, family, police, friend...)? What history was obtained from this source @ -No Did you review nursing and triage notes (agree or disagree)? Why? @ -I reviewed and agree with nursing and triage notes Were old charts reviewed (outside hosp., previous admission, EMS record, old EK G, old radiological studies, urgent care reports/EKG's, correction records)? Report findings @ -No old charts were reviewed Differential Diagnosis (chest pain, altered mental status, abdominal pain women, abdominal pain men, vaginal bleeding, musculoskeletal, weakness, fever, dyspnea, syncope, headache, dizziness, GI bleed, back pain, seizure, CVA, palpatations, mental health)? @ -Infection, cellulitis, abscess, shunt leakage EKG interpreted by me (3pts min.). @ -None done X-rays interpreted by me (1pt min.). @ -None done CT interpreted by me (1pt min.). @ -None done U/S interpreted by me (1pt. min.). @ -Pulsatile fluid collection at the area of interest What testing was considered but not performed or refused? (CT, X-rays, U/S, labs)? Why? @ -None What meds were considered but not given or refused? Why? @ -None Did you discuss the management of the patient with other professionals (professionals i.e. , PA, GAMEPLAY ENGINEER, lab, RT, psych nurse, vp digital marketing social media and crm, certified fire investigator, teacher, inspectors and regulatory officers, bilingual case manager)? Give summary @ -No Was smoking cessation discussed for >3mins.? @ -No Was critical care preformed (if so, how long)? @ -33 minutes Were there social determinants of health that impacted care today? How? (Homelessness, low income, unemployed, alcoholism, drug addiction, transportation, low edu. Level, literacy, decrease access to med. care, halfway, rehab)? @ -No Was there de-escalation of care discussed even if they declined (Discuss DNR or withdrawal of care, Hospice)? DNR status @ -No What co-morbidities impacted this encounter? (DM, HTN, Smoking, COPD, CAD, Cancer, CVA, ARF, Chemo, Hep., AIDS, mental health diagnosis, sleep apnea, morbid obesity)? @ -None Was patient admitted / discharged? Hospital course, mention meds given and route, prescriptions, significant lab abnormalities, going to OR and other pertinent info. @ -42-year-old male presents emergency Department with pain next to his shunt site. Labs are unremarkable. No leukocytosis. Radiology report regarding ultrasound shows that there is a fluid collection that may represent abscess versus hematoma. Case is discussed with vascular surgeon will review the ultrasound films states that it appears to be consistent with hematoma. Clinical presentation likely secondary to infiltration from dialysis. Laboratory evaluation obtained. CBC is within acceptable limits. Of note potassium of 7.2 with elevated creatinine above his usual baseline. He does have EKG changes to support the diagnosis of hyperkalemia. Case is discussed urgently with assembler knife, Dr. Leone. She will arrange for urgent dialysis. Patient given hyperkalemia cocktail. Undiagnosed new problem with uncertain prognosis? @ -No Drug Therapy requiring intensive monitoring for toxicity (Heparin, Nitro, Insulin, Cardizem)? @ -No Were any procedures done? @ -No Diagnosis/symptom? Acute, or Chronic, or Acute on Chronic? Uncomplicated (without systemic symptoms) or Complicated (systemic symptoms)? @ -1. Right upper extremity pain, 2. Hyperkalemia Side effects of treatment? @ -No Exacerbation, Progression, or Severe Exacerbation? @ -No Poses a threat to life or bodily function? How? (Chest pain, USA, GA, pneumonia, PE, COPD, DKA, ARF, appy, cholecystitis, CVA, Diverticulitis, Homicidal, Suicidal, threat to staff... and all critical care pts) @ -yes - Lab Data Result diagrams: 08/04/22 17:40 08/04/22 17:40 Lab Results 08/04/22 08/04/22 Range/Units 17:40 17:40 WBC 3.2 L (3.8-10.6) k/uL RBC 4.56 (4.30-5.90) m/uL Hgb 15.1 (13.0-17.5) gm/dL Hct 46.1 (39.0-53.0) % MCV 101.1 H (80.0-100.0) fL MCH 33.1 (25.0-35.0) pg MCHC 32.8 (31.0-37.0) g/dL RDW 15.0 (11.5-15.5) % Plt Count 134 L (150-450) k/uL MPV 8.9 Neutrophils % (Manual) 48 % Lymphocytes % (Manual) 29 % Monocytes % (Manual) 14 % Eosinophils % (Manual) 9 % Neutrophils # (Manual) 1.54 (1.3-7.7) k/uL Lymphocytes # (Manual) 0.93 L (1.0-4.8) k/uL Monocytes # (Manual) 0.45 (0-1.0) k/uL Eosinophils # (Manual) 0.29 (0-0.7) k/uL Nucleated RBCs 0 (0-0) /100 WBC Manual Slide Review Performed Macrocytosis Slight Sodium 135 L (137-145) mmol/L Potassium 7.2 H* (3.5-5.1) mmol/L Chloride 99 (98-107) mmol/L Carbon Dioxide 26 (22-30) mmol/L Anion Gap 10 mmol/L BUN 56 H (9-20) mg/dL Creatinine 14.12 H* (0.66-1.25) mg/dL Est GFR (CKD-EPI)AfAm 4 (>60 ml/min/1.73 sqM) Est GFR (CKD-EPI)NonAf 4 (>60 ml/min/1.73 sqM) Glucose 87 (74-99) mg/dL Calcium 8.1 L (8.4-10.2) mg/dL Disposition Clinical Impression: Hyperkalemia Disposition: ADMITTED IP TO THIS [facility] Condition: Serious Referrals: None,Stated [Primary Care Provider] - 1-2 days Decision Time: 18:06
--- NOTE | 2022-08-04 16:14 | US ---
EXAMINATION TYPE: US extremity nonvasc mass RT DATE OF EXAM: 08/04/2022 COMPARISON: NONE CLINICAL HISTORY: reported lump. Patient came from skilled nursing with complaints of pain lateral to his right upper arm dialysis access, patient gives zero history of injury or possible injection in arm, questio irene if dialysis access is clotted. FINDINGS/IMPRESSION: Medial upper right arm dialysis access appears patent. Lateral right arm is whe re patient is having pain. There is a complex collection near right tricep muscle measuring 4.7 x 2.2 x 2.4 cm. Patient does not give any history regarding this spot. Unsure if muscle related injury alessandra alix possible injection in muscle. Complex collection may represent an abscess versus hematoma versus possible injection of foreign material.
[2022-08-04] MEDS ORDERED: MORPHINE SULFATE 4 MG/ML SYRINGE IVP STA (17:46)
[2022-08-04 18:15] LABS: Calcium 8.1 mg/dL (8.4-10.2)
[2022-08-04 18:31] LABS: Potassium 7.2 mmol/L (3.5-5.1)
[2022-08-04 18:34] LABS: HCT 46.1 % (39.0-53.0); HGB 15.1 gm/dL (13.0-17.5); MCH 33.1 pg (25.0-35.0); MCHC 32.8 g/dL (31.0-37.0); MCV 101.1 fL (80.0-100.0); Macrocytosis Slight; Mean Platelet Volume 8.9; Platelet Count 134 k/uL (150-450); RBC 4.56 m/uL (4.30-5.90); WBC 3.2 k/uL (3.8-10.6)
[2022-08-04] MEDS ORDERED: DEXTROSE 50% SYRINGE 50 ML IVP ONE (19:13)
[2022-08-04] MEDS ORDERED: SODIUM BICARB 8.4% 50 ML SYR (1 MEQ/ML) IV ONE (19:13)
[2022-08-04] MEDS ORDERED: INSULIN REGULAR 100 UNIT/ML VIAL (IV) IV ONE (19:13)
[2022-08-04] MEDS ORDERED: ALBUTEROL NEB (CONC) 2.5 MG/0.5 ML INHALATION ONE (19:13)
[2022-08-04] MEDS ORDERED: SODIUM ZIRCONIUM CYCLOSILICATE 10 GM PACKET PO ONE (19:30)
[2022-08-04 19:36] LABS: Eosinophils # (M) 0.29 k/uL (0-0.7); Lymphocytes # (M) 0.93 k/uL (1.0-4.8); Monocytes # (M) 0.45 k/uL (0-1.0); Neutrophils # (M) 1.54 k/uL (1.3-7.7); Neutrophils % (M) 48 %; Nucleated Red Blood Cells 0 /100 WBC (0-0); Total Cells Counted 100
[2022-08-04] MEDS ORDERED: CALCIUM GLUCONATE IN NACL 1 GM in SALINE 1 100ML.BAG IVPB ONE (19:45)
[2022-08-04] MEDS ORDERED: NALOXONE 0.4 MG/ML 1 ML VIAL IV PRN (20:08)
--- NOTE | 2022-08-04 23:00 | P.HPIM ---
History of Present Illness This is a pleasant -Swiss 42 years old male who was sent from skilled nursing for medical attention. He has history of hypertension and chronic kidney disease/end-stage kidney disease on hemodialysis Sunday and Sunday. Patient is not sure why he was sent to the hospital but he thinks is because of his right arm, which is the same sign of Versed from emergency room physician. Patient has been complaining of from swelling in his fistula area about 2 weeks ago and then days ago he started having pain and there right arm where the fistula is, He denies any other complaints, no chest pain dyspnea or coughing. No change in urine or bowel habits. No fever. He states that he got hemodialysis as he is supposed to yesterday He is hemodynamically stable and afebrile Labs showing mild leukopenia of 3.2, rest of the CBC is unremarkable, platelets slightly low 1 34,000. Potassium 7.2 which is high, creatinine 14.1. His EKG showing sinus bradycardia with elevated T-wave in V3 and V4. No significant ST-T changes. Extremity ultrasound: Medial upper right arm dialysis accesses appears patent. There is some complex collection new right triceps muscles measuring 4.7 x 2.2 x 2.4 cm which could represent abscess versus hematoma versus injection of foreign material Because of his elevated dialysis he's undergoing emergent hemodialysis tonight Review of Systems Review of systems CONSTITUTIONAL: No fever, no malaise, no fatigue. HEENT: No recent visual problems or hearing problems. Denied any sore throat. CARDIOVASCULAR: No orthopnea, PND, no palpitations, no syncope. PULMONARY: No shortness of breath, no cough, no hemoptysis. GASTROINTESTINAL: No diarrhea, no nausea, no vomiting, no abdominal pain. Normoactive bowel sounds. NEUROLOGICAL: No headaches, no weakness, no numbness. HEMATOLOGICAL: Denies any bleeding or petechiae. GENITOURINARY: Denies any burning micturition, frequency, or urgency. MUSCULOSKELETAL/RHEUMATOLOGICAL: Denies any joint pain, swelling, or any muscle pain. ENDOCRINE: Denies any polyuria or polydipsia. Past Medical History Past Medical History: Dialysis, Hypertension, Renal Disease Additional Past Medical History / Comment(s): kidney disease- dialysis t/t/s dialysis History of Any Multi-Drug Resistant Organisms: None Reported Additional Past Surgical History / Comment(s): fistula/graft lt arm, surgery on kidneys as an infant pt not sure exactly what was done, port rt chest placed when his fistula wasn't working. Past Anesthesia/Blood Transfusion Reactions: No Reported Reaction Past Psychological History: No Psychological Hx Reported Additional Psychological History / Comment(s): Pt resides with his mother. He uses no assistive device. He does not drive, his girlfriend takes him to appts. Smoking Status: Former smoker Past Alcohol Use History: None Reported Additional Past Alcohol Use History / Comment(s): Started smoking at ge 16, smokes 2-3 cigs per day Past Drug Use History: Marijuana Additional Drug Use History / Comment(s): Smokes marijuana daily-1 joint a day - Past Family History Mother Additional Family Medical History / Comment(s): bronchitis Father Family Medical History: Hypertension Medications and Allergies Home Medications Medication Instructions Recorded Confirmed Type Sevelamer [Renvela] 4,000 mg PO 5XD 09/21/17 08/04/22 History Cinacalcet HCl [Sensipar] 90 mg PO HS 04/20/22 08/04/22 History Omeprazole 20 mg PO DAILY 04/20/22 08/04/22 History amLODIPine [Norvasc] 10 mg PO DAILY 08/04/22 08/04/22 History cloNIDine HCL [Catapres] 0.2 mg PO TID 08/04/22 08/04/22 History Allergies Allergy/AdvReac Type Severity Reaction Status Date / Time No Known Allergies Allergy Verified 08/04/22 15:31 Physical Exam Vitals: Vital Signs Temp Pulse Pulse Resp BP BP Pulse Ox 08/04/22 21:41 76 20 109/68 96 08/04/22 21:35 98.1 F 66 18 148/70 95 08/04/22 21:23 66 18 109/63 96 08/04/22 20:00 67 08/04/22 19:49 62 08/04/22 18:49 55 L 18 120/42 97 08/04/22 17:41 52 L 18 120/37 99 08/04/22 15:53 53 L 18 104/37 100 08/04/22 14:37 98.0 F 57 L 20 137/62 100 Intake and Output 08/04/22 08/04/22 08/04/22 06:59 14:59 22:59 Intake Total 250 Balance 250 Intake: Oral 250 Other: Weight 77.111 kg 77.111 kg GENERAL: The patient is alert and oriented x3, not in any acute distress. Well developed, well nourished. HEENT: Pupils are round and equally reacting to light. EOMI. No scleral icterus. No conjunctival pallor. Normocephalic, atraumatic. No pharyngeal erythema. No thyromegaly. CARDIOVASCULAR: S1 and S2 present. No murmurs, rubs, or gallops. PULMONARY: Chest is clear to auscultation, no wheezing or crackles. ABDOMEN: Soft, nontender, nondistended, normoactive bowel sounds. No palpable organomegaly. MUSCULOSKELETAL: No joint swelling or deformity. -EXTREMITIES: No cyanosis, clubbing, or pedal edema. Right arm fistula with thrill present with some area of mild swelling and tenderness just right of his fistula area in the right middle on with no significant discoloration NEUROLOGICAL: Gross neurological examination did not reveal any focal deficits. SKIN: No rashes. no petechiae. Results CBC & Chem 7: 08/04/22 17:40 08/04/22 17:40 Labs: Abnormal Lab Results - Last 24 Hours (Table) 08/04/22 08/04/22 Range/Units 17:40 17:40 WBC 3.2 L (3.8-10.6) k/uL MCV 101.1 H (80.0-100.0) fL Plt Count 134 L (150-450) k/uL Lymphocytes # (Manual) 0.93 L (1.0-4.8) k/uL Sodium 135 L (137-145) mmol/L Potassium 7.2 H* (3.5-5.1) mmol/L BUN 56 H (9-20) mg/dL Creatinine 14.12 H* (0.66-1.25) mg/dL Calcium 8.1 L (8.4-10.2) mg/dL Thrombosis Risk Factor Assmnt - Choose All That Apply Any of the Below Risk Factors Present?: Yes Each Factor Represents 1 point: Age 41-60 years, Medical pt on bed rest Other Risk Factors: No Other congenital or acquired thrombophilia - If yes, enter type in comment: No Thrombosis Risk Factor Assessment Total Risk Factor Score: 2 Thrombosis Risk Factor Assessment Level: Low Risk Assessment and Plan Assessment: Acute hyperkalemia secondary to renal disease, status post emergent hemodialysis End-stage renal disease on hemodialysis, Sunday and Sunday Right upper extremity complex collection could be hematoma versus abscess versus collection of foreign material, measuring 4.7 x 2.2 x 2.4 cm Hypertension Plan: Patient is undergoing emergent hemodialysis and as per protocol Monitor potassium Insurance Follow Up Specialist in consult Surgical team consult Pain management Labs and medication were reviewed.. Continue same treatment. Continue with symptomatic treatment. Resume home medication. Monitor labs and vitals. DVT and GI prophylaxis. Further recommendations as per clinical course of the patient DVT prophylaxis: Subcutaneous heparin GI Prophylaxis: Pepcid Prognosis is guarded
[2022-08-04] MEDS ORDERED: HEPARIN SODIUM 1,000 UN/ML (10ML VL) MISCELLANE ONE (23:26)
[2022-08-04] MEDS: SEVELAMER 800 MG TAB PO SCH (23:30)
[2022-08-05 04:35] LABS: Calcium 8.5 mg/dL (8.4-10.2); Potassium 4.4 mmol/L (3.5-5.1)
[2022-08-05] MEDS: SEVELAMER 800 MG TAB PO SCH ×6 (05:17→22:51)
[2022-08-05] MEDS ORDERED: HEPARIN SODIUM,PORCINE/PF 5,000 UNIT/0.5 ML SYRINGE SQ SCH (09:00)
[2022-08-05] MEDS ORDERED: FAMOTIDINE 20 MG/2 ML VIAL IV SCH (09:00)
[2022-08-05] MEDS: cloNIDine HCL 0.2 MG TAB PO SCH ×3 (09:39→20:06)
[2022-08-05] MEDS: amLODIPine 10 MG TAB PO SCH (09:39)
[2022-08-05] MEDS: HYDROcodone/APAP 5-325MG 1 EACH TAB PO PRN (10:13)
--- NOTE | 2022-08-05 11:13 | P.NPCON ---
History of Present Illness - Reason for Consult end stage renal disease - History of Present Illness Patient is a 42-year-old male with end-stage renal disease who is currently incarcerated. Patient is maintained on a Sunday schedule for hemodialysis. He was brought into the ER with history of painful swelling at the site of his AV fistula. Patient states that he has had the swelling for about a week now since he has been incarcerated. Patient states that he feels it has gotten more painful and larger. Patient was dialyzed on 08/03/2022 as outpatient and he presented yesterday with a potassium of 7.2. There were no issues with his treatment. Blood flows and dialysate flow was at max. No significant history of GI bleed No significant increase in potassium-containing foods Ultrasound of the right upper extremity shows 4.7 in to 2.4 cm complex collection possibly hematoma If this is a hematoma, it would explain the unexpected hyperkalemia in this patient. Vascular surgery has been consulted. Status post hemodialysis last night without heparin. Serum potassium is down to 4.4 this morning Review of Systems As per HPI Past Medical History Past Medical History: Dialysis, Hypertension, Renal Disease Additional Past Medical History / Comment(s): kidney disease- dialysis t/t/s dialysis History of Any Multi-Drug Resistant Organisms: None Reported Additional Past Surgical History / Comment(s): fistula/graft lt arm, surgery on kidneys as an pt not sure exactly what was done, port rt chest placed when his fistula wasn't working. Past Anesthesia/Blood Transfusion Reactions: No Reported Reaction Past Psychological History: No Psychological Hx Reported Additional Psychological History / Comment(s): Pt resides with his mother. He uses no assistive device. He does not drive, his girlfriend takes him to appts. Smoking Status: Former smoker Past Alcohol Use History: None Reported Additional Past Alcohol Use History / Comment(s): Started smoking at ge 16, smokes 2-3 cigs per day Past Drug Use History: Marijuana Additional Drug Use History / Comment(s): Smokes marijuana daily-1 joint a day - Past Family History Mother Additional Family Medical History / Comment(s): bronchitis Father Family Medical History: Hypertension Medications and Allergies Home Medications Medication Instructions Recorded Confirmed Type Sevelamer [Renvela] 4,000 mg PO 5XD 09/21/17 08/04/22 History Cinacalcet HCl [Sensipar] 90 mg PO HS 04/20/22 08/04/22 History Omeprazole 20 mg PO DAILY 04/20/22 08/04/22 History amLODIPine [Norvasc] 10 mg PO DAILY 08/04/22 08/04/22 History cloNIDine HCL [Catapres] 0.2 mg PO TID 08/04/22 08/04/22 History Allergies Allergy/AdvReac Type Severity Reaction Status Date / Time No Known Allergies Allergy Verified 08/04/22 15:31 Physical Exam Vitals: Vital Signs Temp Pulse Pulse Pulse Resp BP BP 08/05/22 09:35 98.1 F 53 L 16 08/05/22 03:28 98.1 F 64 18 08/05/22 02:05 98.1 F 18 08/04/22 23:16 98.2 F 62 20 118/63 08/04/22 21:41 76 20 109/68 08/04/22 21:35 98.1 F 66 18 148/70 08/04/22 21:23 66 18 109/63 08/04/22 20:00 67 08/04/22 19:49 62 08/04/22 18:49 55 L 18 120/42 08/04/22 17:41 52 L 18 120/37 08/04/22 15:53 53 L 18 104/37 08/04/22 14:37 98.0 F 57 L 20 137/62 BP Pulse Ox 08/05/22 09:35 146/71 97 08/05/22 03:28 122/40 98 08/05/22 02:05 108/58 08/04/22 23:16 100 08/04/22 21:41 96 08/04/22 21:35 95 08/04/22 21:23 96 08/04/22 20:00 08/04/22 19:49 08/04/22 18:49 97 08/04/22 17:41 99 08/04/22 15:53 100 08/04/22 14:37 100 Intake and Output 08/04/22 08/05/22 08/05/22 22:59 06:59 14:59 Intake Total 250 1000 Output Total 2001 Balance 250 -1002 Intake: Oral 250 Hemodialysis 1000 Output: Hemodialysis 2001 Other: Weight 77.111 kg 75.3 kg Patient is awake, comfortable Alert oriented 3 Examination of the heart S1 and S2 Examination of the lungs bilateral breath sounds are heard Abdomen is soft nontender Examination lower extremities shows no evidence of edema Right upper extremity AV fistula with painful lump lateral to the arm access. Bruit noted. WAREHOUSE CONSULTANT exam grossly intact Results - Lab Results Most recent lab results Calcium 8.5 mg/dL (8.4-10.2) 08/05/22 03:40 08/04/22 17:40 08/05/22 03:40 Assessment and Plan Assessment: 1. End-stage renal disease on hemodialysis on a Sunday schedule 2. Possible hematoma at the site of the AV fistula and right upper arm. Hold hemodialysis until evaluated by vascular surgery 3. Hyperkalemia most likely related to underlying hematoma, status post hemodialysis yesterday with improvement in potassium 4. 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 Patient sees Dr. Daly as outpatient however Dr. Daly was leaving town and therefore Dr. Garcia is consulted Thank you for the consultation. We will continue to follow the patient with you during his hospitalization
--- NOTE | 2022-08-05 13:44 | P.GSCN ---
History of Present Illness Consult date: 08/05/22 History of present illness: Patient is a 42-year-old male with end-stage renal disease is currently incarcerated. He has had a fistula in his right upper extremity for the past 5 or so years. This was done out in [place]. He is on any issue with it. Recent ly there was some discussion regarding need to clean it out but they were told that everything was fine and no further intervention was necessary. He has been having some swelling in his right upper extremity and is brought in for this. He did receive dialysis as regular, fistulous functioning fine however he also had an elevated potassium even after dialysis therefore there is concern in regards to what this area of swelling was. Past Medical History Past Medical History: Dialysis, Hypertension, Renal Disease Additional Past Medical History / Comment(s): kidney disease- dialysis t/t/s dialysis History of Any Multi-Drug Resistant Organisms: None Reported Additional Past Surgical History / Comment(s): fistula/graft lt arm, surgery on kidneys as an pt not sure exactly what was done, port rt chest placed when his fistula wasn't working. Past Anesthesia/Blood Transfusion Reactions: No Reported Reaction Past Psychological History: No Psychological Hx Reported Additional Psychological History / Comment(s): Pt resides with his mother. He uses no assistive device. He does not drive, his girlfriend takes him to appts. Smoking Status: Former smoker Past Alcohol Use History: None Reported Additional Past Alcohol Use History / Comment(s): Started smoking at ge 16, smokes 2-3 cigs per day Past Drug Use History: Marijuana Additional Drug Use History / Comment(s): Smokes marijuana daily-1 joint a day - Past Family History Mother Additional Family Medical History / Comment(s): bronchitis Father Family Medical History: Hypertension Medications and Allergies Home Medications Medication Instructions Recorded Confirmed Type Sevelamer [Renvela] 4,000 mg PO 5XD 09/21/17 08/04/22 History Cinacalcet HCl [Sensipar] 90 mg PO HS 04/20/22 08/04/22 History Omeprazole 20 mg PO DAILY 04/20/22 08/04/22 History amLODIPine [Norvasc] 10 mg PO DAILY 08/04/22 08/04/22 History cloNIDine HCL [Catapres] 0.2 mg PO TID 08/04/22 08/04/22 History Allergies Allergy/AdvReac Type Severity Reaction Status Date / Time No Known Allergies Allergy Verified 08/04/22 15:31 Surgical - Exam Vital Signs Temp Pulse Resp BP Pulse Ox 98.0 F 57 L 20 137/62 100 08/04/22 14:37 08/04/22 14:37 08/04/22 14:37 08/04/22 14:37 08/04/22 14:37 No acute distress, resting comfortably, shackled to bed. Right upper extremity with palpable thrill through the fistula. Swelling more laterally in the upper extremity. Mild tenderness to palpation. No erythema. No drainage. Results Ultrasound is reviewed. No evidence of extravasation. Likely consistent with resolving hematoma. No white count. No fevers to suggest infection - Labs 08/04/22 17:40 08/05/22 03:40 Abnormal Lab Results - Last 24 Hours (Table) 08/04/22 08/04/22 08/04/22 Range/Units 17:40 17:40 17:40 WBC 3.2 L (3.8-10.6) k/uL MCV 101.1 H (80.0-100.0) fL Plt Count 134 L (150-450) k/uL Lymphocytes # (Manual) 0.93 L (1.0-4.8) k/uL Sodium 135 L (137-145) mmol/L Potassium 7.2 H* (3.5-5.1) mmol/L Chloride (98-107) mmol/L BUN 56 H (9-20) mg/dL Creatinine 14.12 H* (0.66-1.25) mg/dL Calcium 8.1 L (8.4-10.2) mg/dL Procalcitonin 0.42 H (0.02-0.09) ng/mL 08/05/22 Range/Units 03:40 WBC (3.8-10.6) k/uL MCV (80.0-100.0) fL Plt Count (150-450) k/uL Lymphocytes # (Manual) (1.0-4.8) k/uL Sodium 134 L (137-145) mmol/L Potassium (3.5-5.1) mmol/L Chloride 95 L (98-107) mmol/L BUN 37 H (9-20) mg/dL Creatinine 10.95 H* (0.66-1.25) mg/dL Calcium (8.4-10.2) mg/dL Procalcitonin (0.02-0.09) ng/mL Diabetes panel 08/04/22 08/05/22 Range/Units 17:40 03:40 Sodium 135 L 134 L (137-145) mmol/L Potassium 7.2 H* 4.4 (3.5-5.1) mmol/L Chloride 99 95 L (98-107) mmol/L Carbon Dioxide 26 29 (22-30) mmol/L BUN 56 H 37 H (9-20) mg/dL Creatinine 14.12 H* 10.95 H* (0.66-1.25) mg/dL Glucose 87 80 (74-99) mg/dL Calcium 8.1 L 8.5 (8.4-10.2) mg/dL Calcium panel 08/04/22 08/05/22 Range/Units 17:40 03:40 Calcium 8.1 L 8.5 (8.4-10.2) mg/dL Pituitary panel 08/04/22 08/05/22 Range/Units 17:40 03:40 Sodium 135 L 134 L (137-145) mmol/L Potassium 7.2 H* 4.4 (3.5-5.1) mmol/L Chloride 99 95 L (98-107) mmol/L Carbon Dioxide 26 29 (22-30) mmol/L BUN 56 H 37 H (9-20) mg/dL Creatinine 14.12 H* 10.95 H* (0.66-1.25) mg/dL Glucose 87 80 (74-99) mg/dL Calcium 8.1 L 8.5 (8.4-10.2) mg/dL Adrenal panel 08/04/22 08/05/22 Range/Units 17:40 03:40 Sodium 135 L 134 L (137-145) mmol/L Potassium 7.2 H* 4.4 (3.5-5.1) mmol/L Chloride 99 95 L (98-107) mmol/L Carbon Dioxide 26 29 (22-30) mmol/L BUN 56 H 37 H (9-20) mg/dL Creatinine 14.12 H* 10.95 H* (0.66-1.25) mg/dL Glucose 87 80 (74-99) mg/dL Calcium 8.1 L 8.5 (8.4-10.2) mg/dL Assessment and Plan Assessment: Right upper extremity pain End-stage renal disease Fistula Plan: After evaluation of the ultrasound to do believe is more likely a hematoma or resolving infiltration. No evidence of infectious process at this point. Continue to use for dialysis. Okay for discharge from my standpoint once medically cleared. Follow back up with previous clinic and evaluating physicians.
--- NOTE | 2022-08-05 14:58 | P.PN ---
Subjective This is a pleasant -[place] 42 years old male who was sent from [facility] for medical attention. He has history of hypertension and chronic kidney disease/end-stage kidney disease on hemodialysis Sunday and Sunday. Patient is not sure why he was sent to the hospital but he thinks is because of his right arm, which is the same sign of Versed from emergency room physician. Patient has been complaining of from swelling in his fistula area about 2 weeks ago and then days ago he started having pain and there right arm where the fist regina is, He denies any other complaints, no chest pain dyspnea or coughing. No change in urine or bowel habits. No fever. He states that he got hemodialysis as he is supposed to yesterday He is hemodynamically stable and afebrile Labs showing mild leukopenia of 3.2, rest of the CBC is unremarkable, platelets slightly low 1 34,000. Potassium 7.2 which is high, creatinine 14.1. His EKG showing sinus bradycardia with elevated T-wave in V3 and V4. No significant ST-T changes. Extremity ultrasound: Medial upper right arm dialysis accesses appears patent. There is some complex collection new right triceps muscles measuring 4.7 x 2.2 x 2.4 cm which could represent abscess versus hematoma versus injection of foreign material Because of his elevated dialysis he's undergoing emergent hemodialysis tonight 08/05/2022 Right upper extremity cellulitis is suspected in view of pain and tenderness and elevated troponincalcitonin, however patient with no fever or leukocytosis. She was started empirically on cefazolin and consulted infectious disease team. Also patient evaluated by vascular surgery team who did not feel the patient has an abscess or hematoma and vascular surgery team cleared the patient. Continue with IV antibiotics for now Repeat pro-calcitonin tomorrow Hyperkalemia improved Objective - Vital Signs Vital signs: Vital Signs Temp 98.1 F 08/05/22 09:35 Pulse 53 L 08/05/22 09:35 Resp 16 08/05/22 09:35 BP 146/71 08/05/22 09:35 Pulse Ox 97 08/05/22 09:35 FiO2 Intake & Output 08/04/22 08/05/22 08/05/22 18:59 06:59 18:59 Intake Total 1250 Output Total 2001 Balance -752 Weight 77.111 kg 75.3 kg Intake: Oral 250 Hemodialysis 1000 Output: Hemodialysis 2001 - Exam GENERAL: The patient is alert and oriented x3, not in any acute distress. Well developed, well nourished. HEENT: Pupils are round and equally reacting to light. EOMI. No scleral icterus. No conjunctival pallor. Normocephalic, atraumatic. No pharyngeal erythema. No thyromegaly. CARDIOVASCULAR: S1 and S2 present. No murmurs, rubs, or gallops. PULMONARY: Chest is clear to auscultation, no wheezing or crackles. ABDOMEN: Soft, nontender, nondistended, normoactive bowel sounds. No palpable organomegaly. MUSCULOSKELETAL: No joint swelling or deformity. -EXTREMITIES: No cyanosis, clubbing, or pedal edema. Right arm fistula with thrill present with some area of mild swelling and tenderness just right of his fistula area in the right middle on with no significant discoloration NEUROLOGICAL: Gross neurological examination did not reveal any focal deficits. SKIN: No rashes. no petechiae. - Labs CBC & Chem 7: 08/04/22 17:40 08/05/22 03:40 Labs: Abnormal Lab Results - Last 24 Hours (Table) 08/04/22 08/04/22 08/04/22 Range/Units 17:40 17:40 17:40 WBC 3.2 L (3.8-10.6) k/uL MCV 101.1 H (80.0-100.0) fL Plt Count 134 L (150-450) k/uL Lymphocytes # (Manual) 0.93 L (1.0-4.8) k/uL Sodium 135 L (137-145) mmol/L Potassium 7.2 H* (3.5-5.1) mmol/L Chloride (98-107) mmol/L BUN 56 H (9-20) mg/dL Creatinine 14.12 H* (0.66-1.25) mg/dL Calcium 8.1 L (8.4-10.2) mg/dL Procalcitonin 0.42 H (0.02-0.09) ng/mL 08/05/22 Range/Units 03:40 WBC (3.8-10.6) k/uL MCV (80.0-100.0) fL Plt Count (150-450) k/uL Lymphocytes # (Manual) (1.0-4.8) k/uL Sodium 134 L (137-145) mmol/L Potassium (3.5-5.1) mmol/L Chloride 95 L (98-107) mmol/L BUN 37 H (9-20) mg/dL Creatinine 10.95 H* (0.66-1.25) mg/dL Calcium (8.4-10.2) mg/dL Procalcitonin (0.02-0.09) ng/mL Assessment and Plan Assessment: Acute hyperkalemia secondary to renal disease, status post emergent hemodialysis End-stage renal disease on hemodialysis, Sunday and Sunday Right upper extremity complex collection could be hematoma versus abscess versus collection of foreign material, measuring 4.7 x 2.2 x 2.4 cm . Surrounding cellulitis suspected with elevated pro-calcitonin Hypertension Plan: Continue with hemodialysis per nephrology Continue cefazolin and consult infectious disease team Recheck production starting tomorrow Vascular surgery team. The patient Air Traffic Control Supervisor team on the case Pain management Labs and medication were reviewed.. Continue same treatment. Continue with symptomatic treatment. Resume home medication. Monitor labs and vitals. DVT and GI prophylaxis. Further recommendations as per clinical course of the patient DVT prophylaxis: Subcutaneous heparin held for possible hematoma, GI Prophylaxis: Pepcid Prognosis is guarded
[2022-08-05] MEDS: CINACALCET 30 MG TAB PO SCH (20:06)
[2022-08-05] MEDS: FAMOTIDINE 20 MG TAB PO SCH (20:06)
[2022-08-05] MEDS ORDERED: VANCOMYCIN IV PER PHARMACY 1 EACH MISC MISCELLANE PRN (21:36)
--- NOTE | 2022-08-05 21:36 | P.CONS ---
History of Present Illness - Reason for Consult Consult date: 08/05/22 - History of Present Illness Patient is a 42-year-old -[place] male with a past medical history significant for end-stage renal disease on hemodialysis through the right arm AV fistula with the patient has for the last 5 years patient presenting to the ER for evaluation of a painful lump to the right upper extremity patient mention started about 2 weeks ago he is not very clear however it started denies any history of any trauma patient mention that he has becoming more swollen and becoming more painful patient pain pain has been has been mostly sharp intensity 7- 8 out of 10 mention that it is becoming more formal with the symptoms the patient was brought into the ER on arrival to the ER patient was afebrile and no fever has been recorded subsequently patient was nontachycardic mild leukopenia with a white count of 3.2 no left shift did have elevated BUN and creatinine pressure was 7.2 patient did have a ultrasound of the right lower extremity complex collection near the right tricep muscles measuring 4.7 X2.2X 2.27 m with concern for possible muscle related injury versus possible injection in the muscle infectious disease was consulted for further management currently on cefazolin 2 g every 8 hours blood culture has been obtained which are currently pending Past Medical History Past Medical History: Dialysis, Hypertension, Renal Disease Additional Past Medical History / Comment(s): kidney disease- dialysis t/t/s dialysis History of Any Multi-Drug Resistant Organisms: None Reported Additional Past Surgical History / Comment(s): fistula/graft lt arm, surgery on kidneys as an infant pt not sure exactly what was done, port rt chest placed when his fistula wasn't working. Past Anesthesia/Blood Transfusion Reactions: No Reported Reaction Past Psychological History: No Psychological Hx Reported Additional Psychological History / Comment(s): Pt resides with his mother. He uses no assistive device. He does not drive, his girlfriend takes him to [employer]. Smoking Status: Former smoker Past Alcohol Use History: None Reported Additional Past Alcohol Use History / Comment(s): Started smoking at ge 16, smokes 2-3 cigs per day Past Drug Use History: Marijuana Additional Drug Use History / Comment(s): Smokes marijuana daily-1 joint a day - Past Family History Mother Additional Family Medical History / Comment(s): bronchitis Father Family Medical History: Hypertension Medications and Allergies Home Medications Medication Instructions Recorded Confirmed Type Sevelamer [Renvela] 4,000 mg PO 5XD 09/21/17 08/04/22 History Cinacalcet HCl [Sensipar] 90 mg PO HS 04/20/22 08/04/22 History Omeprazole 20 mg PO DAILY 04/20/22 08/04/22 History amLODIPine [Norvasc] 10 mg PO DAILY 08/04/22 08/04/22 History cloNIDine HCL [Catapres] 0.2 mg PO TID 08/04/22 08/04/22 History Allergies Allergy/AdvReac Type Severity Reaction Status Date / Time No Known Allergies Allergy Verified 08/04/22 15:31 Physical Exam Vitals: Vital Signs Temp Pulse Pulse Pulse Resp BP BP 08/05/22 12:15 98.3 F 65 14 08/05/22 09:35 98.1 F 53 L 16 08/05/22 03:28 98.1 F 64 18 08/05/22 02:05 98.1 F 18 08/04/22 23:16 98.2 F 62 20 118/63 08/04/22 21:41 76 20 109/68 08/04/22 21:35 98.1 F 66 18 148/70 08/04/22 21:23 66 18 109/63 08/04/22 20:00 67 08/04/22 19:49 62 08/04/22 18:49 55 L 18 120/42 08/04/22 17:41 52 L 18 120/37 08/04/22 15:53 53 L 18 104/37 08/04/22 14:37 98.0 F 57 L 20 137/62 BP Pulse Ox 08/05/22 12:15 115/49 95 08/05/22 09:35 146/71 97 08/05/22 03:28 122/40 98 08/05/22 02:05 108/58 08/04/22 23:16 100 08/04/22 21:41 96 08/04/22 21:35 95 08/04/22 21:23 96 08/04/22 20:00 08/04/22 19:49 08/04/22 18:49 97 08/04/22 17:41 99 08/04/22 15:53 100 08/04/22 14:37 100 Intake and Output 04/08/05/22 08/05/22 22:59 06:59 14:59 Intake Total 250 1000 540 Output Total 2001 Balance 250 -1002 540 Intake: Oral 250 540 Hemodialysis 1000 Output: Hemodialysis 2001 Other: Weight 77.111 kg 75.3 kg Results CBC & Chem 7: 08/04/22 17:40 08/05/22 03:40 Labs: Abnormal Lab Results - Last 24 Hours (Table) 08/04/22 08/04/22 08/04/22 Range/Units 17:40 17:40 17:40 WBC 3.2 L (3.8-10.6) k/uL MCV 101.1 H (80.0-100.0) fL Plt Count 134 L (150-450) k/uL Lymphocytes # (Manual) 0.93 L (1.0-4.8) k/uL Sodium 135 L (137-145) mmol/L Potassium 7.2 H* (3.5-5.1) mmol/L Chloride (98-107) mmol/L BUN 56 H (9-20) mg/dL Creatinine 14.12 H* (0.66-1.25) mg/dL Calcium 8.1 L (8.4-10.2) mg/dL Procalcitonin 0.42 H (0.02-0.09) ng/mL 08/05/22 Range/Units 03:40 WBC (3.8-10.6) k/uL MCV (80.0-100.0) fL Plt Count (150-450) k/uL Lymphocytes # (Manual) (1.0-4.8) k/uL Sodium 134 L (137-145) mmol/L Potassium (3.5-5.1) mmol/L Chloride 95 L (98-107) mmol/L BUN 37 H (9-20) mg/dL Creatinine 10.95 H* (0.66-1.25) mg/dL Calcium (8.4-10.2) mg/dL Procalcitonin (0.02-0.09) ng/mL Assessment and Plan Plan: 1patient is a 42-year-old -[place] male with a history of end-stage renal disease on hemodialysis through the right arm AV fistula presented to hospital with a painful lump with abnormal ultrasound concerning for possible hematoma versus injection into the muscle however the patient categorically denying having any injection to the site patient is currently afebrile white count is normal making an abscess to be less likely but not entirely excluded 2-patient may benefit from aspirate of the area and fluid sent for the culture 3-discontinue cefazolin 4-empirically add vancomycin while waiting for the culture to finalize We will follow on clinical condition and cultures to further adjust medication if needed Thank you for this consultation we will follow the patient along with you Time with Patient: Greater than 30
[2022-08-05] MEDS ORDERED: VANCOMYCIN 1,250 MG in SODIUM CHLORIDE 0.9% 250 ML IVPB ONE (22:00)
[2022-08-06] MEDS: HYDROcodone/APAP 5-325MG 1 EACH TAB PO PRN (05:32)
[2022-08-06] MEDS: SEVELAMER 800 MG TAB PO SCH ×4 (06:54→20:18)
[2022-08-06] MEDS: FAMOTIDINE 20 MG TAB PO SCH ×2 (09:07→20:19)
--- NOTE | 2022-08-06 10:07 | P.PN ---
Subjective Patient is seen for follow-up for end-stage renal disease. He was admitted to the hospital with pain in his right arm near the access site. Patient was noted to have a fluid collection. There is concern for hematoma. Potassium was unexpectedly elevated at 7.2 the next day after dialysis. Patient has been receiving heparin with outpatient hemodialysis treatments. This swelling has been there for about a week now. Patient has been evaluated by vascular surgery and has been cleared to use the AV fistula. No history of fever, no leukocytosis to suggest underlying infection. Patient is currently incarcerated and states that he noticed this lump since he was incarcerated about a week ago. No history of trauma per patient. Objective - Vital Signs Vital signs: Vital Signs Temp 97.3 F L 08/06/22 08:00 Pulse 54 L 08/06/22 08:00 Resp 20 08/06/22 08:00 BP 88/56 08/06/22 08:00 Pulse Ox 94 L 08/06/22 08:00 FiO2 Intake & Output 08/05/22 08/06/22 08/06/22 18:59 06:59 18:59 Intake Total 1256 Balance 1256 Weight 78.1 kg Intake: Oral 1256 - Exam Patient is awake, comfortable Alert oriented 3 Examination lower extremities shows no evidence of edema Right upper extremity AV fistula with painful lump lateral to the arm access. Bruit noted. 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 End-stage renal disease on hemodialysis on a Sunday schedule 2. Possible hematoma at the site of the AV fistula and right upper arm. Cleared for use of an access for hemodialysis. Patient needs heparin with his treatments and we will dialyze him tomorrow with monitoring of the hematoma. 3. Hyperkalemia most likely related to underlying hematoma, status post hemo dialysis yesterday with improvement in potassium 4. CK D mineral bone disorder maintained on Renvela Plan: Hemodialysis in a.m. with least dose of heparin to prevent clotting.
[2022-08-06 10:17] LABS: Calcium 8.1 mg/dL (8.4-10.2)
[2022-08-06 10:47] LABS: Potassium 6.1 mmol/L (3.5-5.1)
[2022-08-06] MEDS: amLODIPine 10 MG TAB PO SCH (11:08)
[2022-08-06] MEDS: cloNIDine HCL 0.2 MG TAB PO SCH ×2 (11:46→17:10)
--- NOTE | 2022-08-06 16:07 | P.PN ---
Subjective Progress Note Date: 08/06/22 Principal diagnosis: Right arm swelling questionable hematoma versus abscess Patient is a 42-year-old -Portuguese male with a past medical history significant for end-stage renal disease on hemodialysis through the right upper arm AV fistula presenting to the hospital with increasing pain and swelling to the right upper arm no history of any trauma, the patient did have an ultrasound with evidence of abnormality concerning for possible abscess versus hematoma. On today's evaluation that is 08/06/2022 patient denies having any fever or any chills, still complaining of pain and swelling to the right upper arm, no chest pain or shortness with a cough no abdominal pain or diarrhea Objective - Vital Signs Vital signs: Vital Signs Temp 98.1 F 08/06/22 11:37 Pulse 54 L 08/06/22 11:37 Resp 20 08/06/22 11:37 BP 128/67 08/06/22 11:37 Pulse Ox 97 08/06/22 11:37 FiO2 Intake & Output 08/05/22 08/06/22 08/06/22 18:59 06:59 18:59 Intake Total 1256 718 Balance 1256 718 Weight 78.1 kg Intake: Intake, IV Titration 0 Amount Vancomycin 1,250 mg In 0 Sodium Chloride 0.9% 250 ml @ 125 mls/hr IVPB ONCE @2200 ONE Rx#:[id number] Oral 1256 718 - Exam GENERAL DESCRIPTION: Middle-aged male lying in bed in no distress RESPIRATORY SYSTEM: Unlabored breathing , decreased breath sounds at bases HEART: S1 S2 regular rate and rhythm , ABDOMEN: Soft , no tenderness EXTREMITIES: Right upper arm did have an area off swelling and induration and tenderness - Labs CBC & Chem 7: 08/04/22 17:40 08/06/22 08:56 Labs: Abnormal Lab Results - Last 24 Hours (Table) 08/06/22 08/06/22 Range/Units 08:56 08:56 Sodium 134 L (137-145) mmol/L Potassium 6.1 H* (3.5-5.1) mmol/L BUN 62 H (9-20) mg/dL Creatinine 15.65 H* (0.66-1.25) mg/dL Calcium 8.1 L (8.4-10.2) mg/dL Procalcitonin 0.43 H (0.02-0.09) ng/mL Microbiology - Last 24 Hours (Table) 08/04/22 21:56 Blood Culture - Preliminary Blood No Growth after 24 hours Assessment and Plan (1) Localized swelling, mass and lump, right upper limb Current Visit: Yes Status: Acute Code(s): R22.31 - LOCALIZED SWELLING, MASS AND LUMP, RIGHT UPPER LIMB SNOMED Code(s): 907990899535614 Plan: 1patient is a 42-year-old -Portuguese male with a history of end-stage renal disease on hemodialysis through the right arm AV fistula presented to hospital with a painful lump with abnormal ultrasound concerning for possible hematoma versus injection into the muscle however the patient categorically denying having any injection to the site patient is currently afebrile white count is normal making an abscess to be less likely but not entirely excluded 2-patient may benefit from aspirate of the area and fluid sent for the culture, that'll help to determine if it is a hematoma versus an abscess 3Patient to continue vancomycin while waiting for the workup to be completed Time with Patient: Less than 30
[2022-08-06] MEDS: CINACALCET 30 MG TAB PO SCH (20:19)
[2022-08-06] MEDS ORDERED: VANCOMYCIN 1,250 MG in SODIUM CHLORIDE 0.9% 250 ML IVPB ONE (22:00)
[2022-08-07] MEDS: cloNIDine HCL 0.2 MG TAB PO SCH ×2 (00:11→13:17)
[2022-08-07] MEDS: SEVELAMER 800 MG TAB PO SCH ×5 (00:14→20:16)
--- NOTE | 2022-08-07 01:47 | P.PN ---
Subjective Progress Note Date: 08/06/22 This is a pleasant -[place] 42 years old male who was sent from longterm for medical attention. He has history of hypertension and chronic kidney disease/end-stage kidney disease on hemodialysis Sunday and Sunday. Patient is not sure why he was sent to the hospital but he thinks is because of his right arm, which is the same sign of Versed from emergency room physician. Patient has been complaining of from swelling in his fistula area about 2 weeks ago and then days ago he started having pain and there right arm where the fistula is, He denies any other complaints, no chest pain dyspnea or coughing. No change in urine or bowel habits. No fever. He states that he got hemodialysis as he is supposed to yesterday He is hemodynamically stable and afebrile Labs showing mild leukopenia of 3.2, rest of the CBC is unremarkable, platelets slightly low 1 34,000. Potassium 7.2 which is high, creatinine 14.1. His EKG showing sinus bradycardia with elevated T-wave in V3 and V4. No sign ificant ST-T changes. Extremity ultrasound: Medial upper right arm dialysis accesses appears patent. There is some complex collection new right triceps muscles measuring 4.7 x 2.2 x 2.4 cm which could represent abscess versus hematoma versus injection of foreign material Because of his elevated dialysis he's undergoing emergent hemodialysis tonight 08/05/2022 Right upper extremity cellulitis is suspected in view of pain and tenderness and elevated troponincalcitonin, however patient with no fever or leukocytosis. She was started empirically on cefazolin and consulted infectious disease team. Also patient evaluated by vascular surgery team who did not feel the patient has an abscess or hematoma and vascular surgery team cleared the patient. Continue with IV antibiotics for now Repeat pro-calcitonin tomorrow Hyperkalemia improved 08/06/2022 Patient is currently lying in the bed. Awake And oriented x3. Still complains of pain over the lump on the right upper extremity. Patient states that it is more indurated now. No complaints of chest pain or shortness of breath. No fever no chills. No nausea vomiting abdominal pain or diarrhea. Hemodialysis as per schedule. Laboratory data showed sodium 134 potassium 6.1 chloride 98 bicarb is 22 BUN 16 and creatinine 14.6 and repeat procalcitonin level is still elevated at 0.43. Patient is on vancomycin currently ID is on board. Current medications reviewed. Objective - Vital Signs Vital signs: Vital Signs Temp 98.1 F 08/06/22 11:37 Pulse 54 L 08/06/22 11:37 Resp 20 08/06/22 11:37 BP 128/67 08/06/22 11:37 Pulse Ox 97 08/06/22 11:37 FiO2 Intake & Output 08/05/22 08/06/22 08/06/22 18:59 06:59 18:59 Intake Total 1256 718 Balance 1256 718 Weight 78.1 kg Intake: Oral 1256 718 - Exam - Exam GENERAL: The patient is alert and oriented x3, not in any acute distress. Well developed, well nourished. HEENT: Pupils are round and equally reacting to light. EOMI. No scleral icterus. No conjunctival pallor. Normocephalic, atraumatic. No pharyngeal erythema. No thyromegaly. CARDIOVASCULAR: S1 and S2 present. No murmurs, rubs, or gallops. PULMONARY: Chest is clear to auscultation, no wheezing or crackles. ABDOMEN: Soft, nontender, nondistended, normoactive bowel sounds. No palpable organomegaly. MUSCULOSKELETAL: No joint swelling or deformity. -EXTREMITIES: No cyanosis, clubbing, or pedal edema. Right arm fistula with thrill present with some area of swelling and tenderness just right of his fistula area in the right middle on with no significant discoloration NEUROLOGICAL: Gross neurological examination did not reveal any focal deficits. SKIN: No rashes. no petechiae. - Labs CBC & Chem 7: 08/04/22 17:40 08/06/22 08:56 Labs: Abnormal Lab Results - Last 24 Hours (Table) 08/06/22 08/06/22 Range/Units 08:56 08:56 Sodium 134 L (137-145) mmol/L Potassium 6.1 H* (3.5-5.1) mmol/L BUN 62 H (9-20) mg/dL Creatinine 15.65 H* (0.66-1.25) mg/dL Calcium 8.1 L (8.4-10.2) mg/dL Procalcitonin 0.43 H (0.02-0.09) ng/mL Microbiology - Last 24 Hours (Table) 08/04/22 21:56 Blood Culture - Preliminary Blood No Growth after 24 hours Assessment and Plan Assessment: Acute hyperkalemia secondary to renal disease, status post emergent hemodialysis End-stage renal disease on hemodialysis, Sunday and Sunday Right upper extremity complex collection could be hematoma versus abscess versus collection of foreign material, measuring 4.7 x 2.2 x 2.4 cm . Surrounding cellulitis suspected with elevated pro-calcitonin Hypertension Plan: Continue with hemodialysis per nephrology Continue vanco. ID is following. procalcitonin is elevated Vascular surgeryHas seen the patient. No surgical intervention recommended at thia time. Mail Order Sorter team on the case Pain management Labs and medication were reviewed.. DVT prophylaxis: Subcutaneous heparin held for possible hematoma, GI Prophylaxis: Pepcid Prognosis is guarded Time with Patient: Greater than 30
[2022-08-07] MEDS: HYDROcodone/APAP 5-325MG 1 EACH TAB PO PRN ×2 (08:44→15:34)
[2022-08-07] MEDS: FAMOTIDINE 20 MG TAB PO SCH ×2 (08:44→20:17)
--- NOTE | 2022-08-07 10:01 | P.PN ---
Subjective Patient is seen in follow-up for end-stage renal disease. He is maintained on hemodialysis on Sunday schedule. Hemodynamically stable. Denies chest pain or shortness of breath. Potassium was elevated at 6.1 yesterday and labs from today are pending. Vital signs are stable. General: No acute distress. HEENT: Head exam is unremarkable. LUNGS: No acute rhonchi or wheezes. HEART: Rate and Rhythm are regular. ABDOMEN: Nontender. EXTREMITITES: No edema. Objective - Vital Signs Vital signs: Vital Signs Temp 97.7 F 08/07/22 08:38 Pulse 51 L 08/07/22 08:38 Resp 16 08/07/22 08:38 BP 121/73 08/07/22 08:38 Pulse Ox 97 08/07/22 08:38 FiO2 Intake & Output 08/06/22 08/07/22 08/07/22 18:59 06:59 18:59 Intake Total 718 118 Balance 718 118 Weight 78 kg Intake: Intake, IV Titration 0 Amount Vancomycin 1,250 mg In 0 Sodium Chloride 0.9% 250 ml @ 125 mls/hr IVPB ONCE @2200 ONE Rx#:[id number] Oral 718 118 - Labs CBC & Chem 7: 08/04/22 17:40 08/06/22 08:56 Labs: Abnormal Lab Results - Last 24 Hours (Table) 08/06/22 08/06/22 Range/Units 08:56 08:56 Sodium 134 L (137-145) mmol/L Potassium 6.1 H* (3.5-5.1) mmol/L BUN 62 H (9-20) mg/dL Creatinine 15.65 H* (0.66-1.25) mg/dL Calcium 8.1 L (8.4-10.2) mg/dL Procalcitonin 0.43 H (0.02-0.09) ng/mL Microbiology - Last 24 Hours (Table) 08/04/22 21:56 Blood Culture - Preliminary Blood No Growth after 48 hours Assessment and Plan Plan: Assessment: 1. End-stage renal disease maintained on hemodialysis on Sunday schedule via AV fistula. 2. Hematoma versus resolving infiltration at the fistula site. 3. Hyperkalemia secondary to chronic kidney disease. 4. 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 5. Hypertension with chronic kidney disease. Controlled. Plan: Hemodialysis today and again tomorrow. Check potassium level stat. Possible discharge after dialysis today.
[2022-08-07 11:23] LABS: Basophils % (A) 0 %; Eosinophils # (A) 0.2 k/uL (0-0.7); Eosinophils % (A) 6 %; HCT 41.1 % (39.0-53.0); HGB 13.6 gm/dL (13.0-17.5); Lymphocytes # (A) 0.6 k/uL (1.0-4.8); Lymphocytes % (A) 17 %; MCH 33.1 pg (25.0-35.0); MCHC 33.2 g/dL (31.0-37.0); MCV 99.9 fL (80.0-100.0); Macrocytosis Slight; Mean Platelet Volume 8.8; Monocytes # (A) 0.3 k/uL (0-1.0); Monocytes % (A) 8 %; Neutrophils # (A) 2.5 k/uL (1.3-7.7); Neutrophils % (A) 66 %; Platelet Count 106 k/uL (150-450); RBC 4.12 m/uL (4.30-5.90); RDW 14.9 % (11.5-15.5); WBC 3.7 k/uL (3.8-10.6)
[2022-08-07 12:22] LABS: Potassium 6.5 mmol/L (3.5-5.1)
[2022-08-07] MEDS: amLODIPine 10 MG TAB PO SCH (13:17)
--- NOTE | 2022-08-07 17:04 | P.PN ---
Subjective Progress Note Date: 08/07/22 Patient is evaluated today resting in bed, currently undergoing hemodialysis. Potassium was up to 6.5 today. Plan to get dialyzed today and again tomorrow. Am labs in place. Patient continues to complain of the right upper arm pain and tender to touch. Vascular has cleared patient with no current issues to the right AV fistula. ID is following and patient remains on vancomycin with concern for abscess vs. hematoma. There is also concern patient had an injection into the muscle. There is a complex collection near the right tricep muscle on ultrasound. Review of Systems Constitutional: Denied any fatigue denied any fever. Cardio vascular: denied any chest pain, palpitations Gastrointestinal: denied any nausea, vomiting, diarrhea Pulmonary: Denied any shortness of breath cough Neurologic denied any new focal deficits All inpatient medications were reviewed and appropriate changes in these medi cations as dictated in the interval history and assessment and plan. PHYSICAL EXAMINATION: GENERAL: The patient is alert and oriented x3, not in any acute distress. Well developed, well nourished. HEENT: Pupils are round and equally reacting to light. EOMI. No scleral icterus. No conjunctival pallor. Normocephalic, atraumatic. No pharyngeal erythema. No thyromegaly. CARDIOVASCULAR: S1 and S2 present. No murmurs, rubs, or gallops. PULMONARY: Chest is clear to auscultation, no wheezing or crackles. ABDOMEN: Soft, nontender, nondistended, normoactive bowel sounds. No palpable organomegaly. MUSCULOSKELETAL: No joint swelling or deformity. EXTREMITIES: No cyanosis, clubbing, or pedal edema. Right AV fistula and tender right upper extremity NEUROLOGICAL: Gross neurological examination did not reveal any focal deficits. SKIN: No rashes. Assessment and Plan Assessment Acute hyperkalemia secondary to renal disease, status post emergent hemodialysis End-stage renal disease on hemodialysis, Sunday and Sunday Right upper extremity complex collection could be hematoma versus abscess versus collection of foreign material, measuring 4.7 x 2.2 x 2.4 cm . Surrounding cellulitis suspected with elevated pro-calcitonin Hypertension GI prophylaxis Full Code Plan Hemodialysis today Repeat potassium today and in AM Hemodialysis tomorrow Possible d/c tomorrow The impression and plan of care has been dictated by Lesli Lei, Nurse Practitioner as directed. Dr. Kvng MD I have performed a history and physical examination and medical decision making of this patient, discussed the same with the dictator, and agree with the dictators assessment and plan as written, documented as a scribe. Based on total visit time, I have performed more than 50% of this visit. Objective - Vital Signs Vital signs: Vital Signs Temp 97.7 F 08/07/22 08:38 Pulse 56 L 08/07/22 12:21 Resp 16 08/07/22 12:21 BP 92/52 08/07/22 12:21 Pulse Ox 99 08/07/22 12:21 FiO2 Intake & Output 08/06/22 08/07/22 08/07/22 18:59 06:59 18:59 Intake Total 718 118 Balance 718 118 Weight 78 kg Intake: Intake, IV Titration 0 Amount Vancomycin 1,250 mg In 0 Sodium Chloride 0.9% 250 ml @ 125 mls/hr IVPB ONCE @2200 ONE Rx#:[id number] Oral 718 118 - Labs CBC & Chem 7: 08/07/22 11:00 08/07/22 11:00 Labs: Abnormal Lab Results - Last 24 Hours (Table) 08/07/22 08/07/22 08/07/22 Range/Units 11:00 11:00 11:00 WBC 3.7 L (3.8-10.6) k/uL RBC 4.12 L (4.30-5.90) m/uL Plt Count 106 L (150-450) k/uL Lymphocytes # 0.6 L (1.0-4.8) k/uL Sodium 132 L (137-145) mmol/L Potassium 6.5 H* 6.5 H* (3.5-5.1) mmol/L Chloride 96 L (98-107) mmol/L BUN 75 H (9-20) mg/dL Creatinine 18.69 H* (0.66-1.25) mg/dL Glucose 130 H (74-99) mg/dL Calcium 8.0 L (8.4-10.2) mg/dL Microbiology - Last 24 Hours (Table) 08/04/22 21:56 Blood Culture - Preliminary Blood No Growth after 48 hours Assessment and Plan Time with Patient: Less than 30
[2022-08-07] MEDS: CINACALCET 30 MG TAB PO SCH (20:17)
--- NOTE | 2022-08-07 21:23 | P.PN ---
Subjective Progress Note Date: 08/07/22 Principal diagnosis: Right arm swelling questionable hematoma versus abscess Patient is a 42-year-old -[place] male with a past medical history significant for end-stage renal disease on hemodialysis through the right upper arm AV fistula presenting to the hospital with increasing pain and swelling to the right upper arm no history of any trauma, the patient did have an ultrasound with evidence of abnormality concerning for possible abscess versus hematoma. On today's evaluation that is 08/07/2022 patient remains to be afebrile, the patient continued to be complaining of pain and swelling to the right upper arm, no chest pain or shortness with a cough no abdominal pain or diarrhea Objective - Vital Signs Vital signs: Vital Signs Temp 97.7 F 08/07/22 08:38 Pulse 56 L 08/07/22 12:21 Resp 16 08/07/22 12:21 BP 92/52 08/07/22 12:21 Pulse Ox 99 08/07/22 12:21 FiO2 Intake & Output 08/06/22 08/07/22 08/07/22 18:59 06:59 18:59 Intake Total 718 118 Balance 718 118 Weight 78 kg Intake: Intake, IV Titration 0 Amount Vancomycin 1,250 mg In 0 Sodium Chloride 0.9% 250 ml @ 125 mls/hr IVPB ONCE @2200 ONE Rx#:[id number] Oral 718 118 - Exam GENERAL DESCRIPTION: Middle-aged male lying in bed in no distress RESPIRATORY SYSTEM: Unlabored breathing , decreased breath sounds at bases HEART: S1 S2 regular rate and rhythm , ABDOMEN: Soft , no tenderness EXTREMITIES: Right upper arm did have an area off swelling and induration and tenderness - Labs CBC & Chem 7: 08/07/22 11:00 08/07/22 17:42 Labs: Abnormal Lab Results - Last 24 Hours (Table) 08/07/22 08/07/22 08/07/22 Range/Units 11:00 11:00 11:00 WBC 3.7 L (3.8-10.6) k/uL RBC 4.12 L (4.30-5.90) m/uL Plt Count 106 L (150-450) k/uL Lymphocytes # 0.6 L (1.0-4.8) k/uL Sodium 132 L (137-145) mmol/L Potassium 6.5 H* 6.5 H* (3.5-5.1) mmol/L Chloride 96 L (98-107) mmol/L BUN 75 H (9-20) mg/dL Creatinine 18.69 H* (0.66-1.25) mg/dL Glucose 130 H (74-99) mg/dL Calcium 8.0 L (8.4-10.2) mg/dL Microbiology - Last 24 Hours (Table) 08/04/22 21:56 Blood Culture - Preliminary Blood No Growth after 48 hours Assessment and Plan (1) Localized swelling, mass and lump, right upper limb Current Visit: Yes Status: Acute Code(s): R22.31 - LOCALIZED SWELLING, MASS AND LUMP, RIGHT UPPER LIMB SNOMED Code(s): 139764070133986 Plan: 1patient is a 42-year-old -[place] male with a history of end-stage renal disease on hemodialysis through the right arm AV fistula presented to hospital with a painful lump with abnormal ultrasound concerning for possible hematoma versus injection into the muscle however the patient categorically denying having any injection to the site patient is currently afebrile white count is normal making an abscess to be less likely but not entirely excluded 2-patient may benefit from aspirate of the area and fluid sent for the culture, that'll help to determine if it is a hematoma versus an abscess, however if no plan for any drainage patient may be discharged for close outpatient follow-up with vascular surgeon as cultures remains to be negative and the patient remains to be afebrile we will discontinue vancomycin Time with Patient: Less than 30
[2022-08-08] MEDS: SEVELAMER 800 MG TAB PO SCH ×6 (00:18→23:30)
[2022-08-08 08:34] LABS: Calcium 8.2 mg/dL (8.4-10.2)
[2022-08-08 09:16] LABS: Potassium 6.6 mmol/L (3.5-5.1)
[2022-08-08] MEDS: FAMOTIDINE 20 MG TAB PO SCH ×2 (09:18→21:22)
--- NOTE | 2022-08-08 09:18 | P.PN ---
Subjective Patient is seen in follow-up for end-stage renal disease. He is maintained on hemodialysis on Sunday schedule. Hemodynamically stable. Denies chest pain or shortness of breath. Underwent hemodialysis yesterday due to hyperkalemia. Vital signs are stable. General: No acute distress. HEENT: Head exam is unremarkable. LUNGS: No acute rhonchi or wheezes. HEART: Rate and Rhythm are regular. ABDOMEN: Nontender. EXTREMITITES: No edema. Objective - Vital Signs Vital signs: Vital Signs Temp 97.9 F 08/08/22 08:00 Pulse 60 08/08/22 08:00 Resp 16 08/08/22 08:00 BP 105/64 08/08/22 08:00 Pulse Ox 98 08/08/22 08:00 FiO2 Intake & Output 08/07/22 08/08/22 08/08/22 18:59 06:59 18:59 Intake Total 1176 540 Output Total 3400 Balance -2224 540 Weight 76.2 kg Intake: Oral 776 540 Hemodialysis 400 Output: Hemodialysis 3400 - Labs CBC & Chem 7: 08/07/22 11:00 08/07/22 17:42 Labs: Abnormal Lab Results - Last 24 Hours (Table) 08/07/22 08/07/22 08/07/22 Range/Units 11:00 11:00 11:00 WBC 3.7 L (3.8-10.6) k/uL RBC 4.12 L (4.30-5.90) m/uL Plt Count 106 L (150-450) k/uL Lymphocytes # 0.6 L (1.0-4.8) k/uL Sodium 132 L (137-145) mmol/L Potassium 6.5 H* 6.5 H* (3.5-5.1) mmol/L Chloride 96 L (98-107) mmol/L BUN 75 H (9-20) mg/dL Creatinine 18.69 H* (0.66-1.25) mg/dL Glucose 130 H (74-99) mg/dL Calcium 8.0 L (8.4-10.2) mg/dL 08/07/22 Range/Units 17:42 WBC (3.8-10.6) k/uL RBC (4.30-5.90) m/uL Plt Count (150-450) k/uL Lymphocytes # (1.0-4.8) k/uL Sodium (137-145) mmol/L Potassium 5.3 H (3.5-5.1) mmol/L Chloride (98-107) mmol/L BUN (9-20) mg/dL Creatinine (0.66-1.25) mg/dL Glucose (74-99) mg/dL Calcium (8.4-10.2) mg/dL Microbiology - Last 24 Hours (Table) 08/04/22 21:56 Blood Culture - Preliminary Blood No Growth after 72 hours Assessment and Plan Plan: Assessment: 1. End-stage renal disease maintained on hemodialysis on Sunday schedule via AV fistula. 2. Hematoma versus resolving infiltration at the fistula site. Also concern for possible abscess. Being followed by vascular. Infectious disease. 3. Hyperkalemia secondary to chronic kidney disease. 4. 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 5. Hypertension with chronic kidney disease. Controlled. Plan: Hemodialysis today. Renal diet. Patient refusing to take a potassium binder. Life-threatening risks of hyperkalemia including , have been discussed with patient. Possible discharge after dialysis today.
[2022-08-08] MEDS: HYDROcodone/APAP 5-325MG 1 EACH TAB PO PRN ×2 (09:20→17:04)
[2022-08-08 09:29] LABS: Vancomycin,Random 23.6 ug/mL
[2022-08-08] MEDS ORDERED: HEPARIN SODIUM 1,000 UN/ML (10ML VL) ONE (11:00)
--- NOTE | 2022-08-08 16:10 | P.PN ---
Subjective Progress Note Date: 08/08/22 Patient is evaluated today resting in bed, currently undergoing hemodialysis. Potassium was up to 6.5 today. Plan to get dialyzed today and again tomorrow. Am labs in place. Patient continues to complain of the right upper arm pain and tender to touch. Vascular has cleared patient with no current issues to the right AV fistula. ID is following and patient remains on vancomycin with concern for abscess vs. hematoma. There is also concern patient had an injection into the muscle. There is a complex collection near the right tricep muscle on ultrasound. 08/08/2022 Patient is evaluated today during hemodialysis, continues to report pain and discomfort adjacent to the right AV fistula site. Patient is being dialyzed today. Potassium 6.5 this AM. Patient refusing potassium binders, he will not take the liquid kayexelate or powder lokelma. States, " I just don't do powders." Patient to have potassium level drawn after hemodialysis. The POOLROOM/POOLHALL MANAGER from the intermediate did call to notify that patient was found to have a right internal jugular DVT which was the main reason for admission. Review of Systems Constitutional: Denied any fatigue denied any fever. Cardio vascular: denied any chest pain, palpitations Gastrointestinal: denied any nausea, vomiting, diarrhea Pulmonary: Denied any shortness of breath cough Neurologic denied any new focal deficits All inpatient medications were reviewed and appropriate changes in these medications as dictated in the interval history and assessment and plan. PHYSICAL EXAMINATION: GENERAL: The patient is alert and oriented x3, not in any acute distress. Well d eveloped, well nourished. HEENT: Pupils are round and equally reacting to light. EOMI. No scleral icterus. No conjunctival pallor. Normocephalic, atraumatic. No pharyngeal erythema. No thyromegaly. CARDIOVASCULAR: S1 and S2 present. No murmurs, rubs, or gallops. PULMONARY: Chest is clear to auscultation, no wheezing or crackles. ABDOMEN: Soft, nontender, nondistended, normoactive bowel sounds. No palpable organomegaly. MUSCULOSKELETAL: No joint swelling or deformity. EXTREMITIES: No cyanosis, clubbing, or pedal edema. Right AV fistula and tender right upper extremity with mild swelling adjacent to the fistula. NEUROLOGICAL: Gross neurological examination did not reveal any focal deficits. SKIN: No rashes. Assessment and Plan Assessment Acute hyperkalemia secondary to renal disease currently 6.5 and patient had extra hemodialysis session yesterday and HD again today. End-stage renal disease on hemodialysis, Sunday and Sunday Right upper extremity complex collection could be hematoma versus abscess versus collection of foreign material, measuring 4.7 x 2.2 x 2.4 cm . Surrounding cellulitis suspected with elevated pro-calcitonin. Possible right internal jugular DVT reported from outside imaging. Hypertension GI prophylaxis Full Code Plan Hemodialysis today Repeat potassium at 1700 and in AM Carotid ultrasound ordered Vascular re-evaluation Patient refusing potassium binders. The impression and plan of care has been dictated by Lesli Lei Nurse Practitioner as directed. Dr. Kvng MD I have performed a history and physical examination and medical decision making of this patient, discussed the same with the dictator, and agree with the dictators assessment and plan as written, documented as a scribe. Based on total visit time, I have performed more than 50% of this visit. Objective - Vital Signs Vital signs: Vital Signs Temp 98.1 F 08/08/22 15:02 Pulse 85 08/08/22 15:02 Resp 16 08/08/22 15:02 BP 121/76 08/08/22 15:02 Pulse Ox 100 08/08/22 11:32 FiO2 Intake & Output 08/07/22 08/08/22 08/08/22 18:59 06:59 18:59 Intake Total 1176 1710 Output Total 3400 3700 Balance -2223 Weight 76.2 kg Intake: Oral 776 960 Hemodialysis 400 750 Output: Hemodialysis 3400 3700 - Labs CBC & Chem 7: 08/07/22 11:00 08/08/22 07:18 Labs: Abnormal Lab Results - Last 24 Hours (Table) 08/07/22 08/08/22 Range/Units 17:42 07:18 Sodium 135 L (137-145) mmol/L Potassium 5.3 H 6.6 H* (3.5-5.1) mmol/L Chloride 93 L (98-107) mmol/L BUN 62 H (9-20) mg/dL Creatinine 16.55 H* (0.66-1.25) mg/dL Calcium 8.2 L (8.4-10.2) mg/dL Microbiology - Last 24 Hours (Table) 08/04/22 21:56 Blood Culture - Preliminary Blood No Growth after 72 hours Assessment and Plan Time with Patient: Less than 30
[2022-08-08 17:09] LABS: Prothrombin Time 10.9 sec (9.0-12.0)
--- NOTE | 2022-08-08 18:45 | US ---
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 Per RN, only both IJV's were to be scanned SIDE PERFORMED: Bilateral IJV Right Arm: There is thrombus in the lower IJV with little compression. This is somewhat eccentric. Left Arm: Negative for DVT in the left IJV IMPRESSION: 1. No deep venous thrombosis of the left internal jugular vein. 2. Positive for deep venous thrombosis of the right lower internal jugular vein. This is somewhat ecc entric and likely chronic in the setting of reported previous right IJV DVT.
[2022-08-08] MEDS ORDERED: HEPARIN SODIUM 1,000 UN/ML (10ML VL) IV PRN (19:01)
[2022-08-08] MEDS ORDERED: HEPARIN SODIUM 1,000 UN/ML (10ML VL) IV ONE (19:01)
[2022-08-08] MEDS ORDERED: HEPARIN SOD,PORK IN 0.45% NACL 25,000 UNIT in 0.45% NACL 1 250ML.BAG IV SCH (19:15)
--- NOTE | 2022-08-08 19:34 | P.PN ---
Subjective Progress Note Date: 08/08/22 Principal diagnosis: Right arm swelling questionable hematoma versus abscess Patient is a 42-year-old -[place] male with a past medical history significant for end-stage renal disease on hemodialysis through the right upper arm AV fistula presenting to the hospital with increasing pain and swelling to the right upper arm no history of any trauma, the patient did have an ultrasound with evidence of abnormality concerning for possible abscess versus hematoma. On today's evaluation that is 08/08/2022 patient continues to be afebrile, the patient continued to be complaining of pain and swelling to the right upper arm however did have improvement with the pain medication, the patient denies chest pain or shortness with a cough no abdominal pain or diarrhea Objective - Vital Signs Vital signs: Vital Signs Temp 97.6 F 08/08/22 11:32 Pulse 62 08/08/22 11:32 Resp 18 08/08/22 11:32 BP 98/39 08/08/22 11:32 Pulse Ox 100 08/08/22 11:32 FiO2 Intake & Output 08/07/22 08/08/22 08/08/22 18:59 06:59 18:59 Intake Total 1176 540 Output Total 3400 Balance -2224 540 Weight 76.2 kg Intake: Oral 776 540 Hemodialysis 400 Output: Hemodialysis 3400 - Exam GENERAL DESCRIPTION: Middle-aged male lying in bed in no distress RESPIRATORY SYSTEM: Unlabored breathing , decreased breath sounds at bases HEART: S1 S2 regular rate and rhythm , ABDOMEN: Soft , no tenderness EXTREMITIES: Right upper arm did have an area off swelling and induration and tenderness - Labs CBC & Chem 7: 08/07/22 11:00 08/08/22 16:38 Labs: Abnormal Lab Results - Last 24 Hours (Table) 08/07/22 08/07/22 08/08/22 Range/Units 11:00 17:42 07:18 Sodium 132 L 135 L (137-145) mmol/L Potassium 6.5 H* 5.3 H 6.6 H* (3.5-5.1) mmol/L Chloride 96 L 93 L (98-107) mmol/L BUN 75 H 62 H (9-20) mg/dL Creatinine 18.69 H* 16.55 H* (0.66-1.25) mg/dL Glucose 130 H (74-99) mg/dL Calcium 8.0 L 8.2 L (8.4-10.2) mg/dL Microbiology - Last 24 Hours (Table) 08/04/22 21:56 Blood Culture - Preliminary Blood No Growth after 72 hours Assessment and Plan (1) Localized swelling, mass and lump, right upper limb Current Visit: Yes Status: Acute Code(s): R22.31 - LOCALIZED SWELLING, MASS AND LUMP, RIGHT UPPER LIMB SNOMED Code(s): 855713820092046 Plan: 1patient is a 42-year-old -[place] male with a history of end-stage renal disease on hemodialysis through the right arm AV fistula presented to hospital with a painful lump with abnormal ultrasound concerning for possible hematoma versus injection into the muscle however the patient categorically denying having any injection to the site patient is currently afebrile white count is normal making an abscess to be less likely but not entirely excluded 2-patient may benefit from aspirate of the area and fluid sent for the culture, that'll help to determine if it is a hematoma versus an abscess, however apparently there is no plan for any drainage per vascular surgery, clinically not behaving as abscess the patient seemed to be doing well off vancomycin at this point Time with Patient: Less than 30
[2022-08-08] MEDS ORDERED: HEPARIN SODIUM,PORCINE/PF 5,000 UNIT/0.5 ML SYRINGE SQ SCH (21:00)
[2022-08-08] MEDS: CINACALCET 30 MG TAB PO SCH (21:18)
[2022-08-09 04:57] LABS: Calcium 9.3 mg/dL (8.4-10.2); Potassium 5.5 mmol/L (3.5-5.1)
[2022-08-09 05:10] LABS: HCT 51.6 % (39.0-53.0); MCH 33.1 pg (25.0-35.0); MCHC 32.5 g/dL (31.0-37.0); MCV 102.1 fL (80.0-100.0); Macrocytosis Slight; Mean Platelet Volume 8.7; Platelet Count 118 k/uL (150-450); RBC 5.06 m/uL (4.30-5.90); RDW 14.5 % (11.5-15.5); WBC 4.1 k/uL (3.8-10.6)
[2022-08-09 05:39] LABS: HGB 16.8 gm/dL (13.0-17.5)
[2022-08-09 06:23] LABS: Eosinophils # (M) 0.29 k/uL (0-0.7); Lymphocytes # (M) 1.23 k/uL (1.0-4.8); Monocytes # (M) 0.86 k/uL (0-1.0); Neutrophils # (M) 1.72 k/uL (1.3-7.7); Neutrophils % (M) 42 %; Nucleated Red Blood Cells 0 /100 WBC (0-0); Total Cells Counted 100
[2022-08-09 06:24] LABS: Large Platelets Present
[2022-08-09 08:49] VITALS: BP 98/54; PULSE 86; TEMP 97.8
[2022-08-09] MEDS: SEVELAMER 800 MG TAB PO SCH (09:25)
[2022-08-09] MEDS: FAMOTIDINE 20 MG TAB PO SCH (09:25)
[2022-08-09] MEDS ORDERED: LIDOCAINE 1% INJ 10MG/ML (20 ML MDV) ONE (09:40)
[2022-08-09 10:06] VITALS: RESP 18
--- NOTE | 2022-08-09 11:19 | P.GSCN ---
History of Present Illness Consult date: 08/09/22 Reason for Consult: Right IJ DVT Requesting physician: Zeb Calderon History of present illness: Patient is a 42-year-old male with end-stage renal disease is currently incarcerated. We were previously consulted on this patient for right upper extremity swelling Fistula site. He has had a fistula in his right upper extremity for the past 5 or so years. This was done out in [place]. Recently there was some discussion regarding need to clean it out but they were told that everything was fine and no further intervention was necessary. He has been having some swelling in his right upper extremity and is brought in for this. Patient underwent dialysis yesterday, right upper extremity fistula functioning well. Apparently there was concerns that patient also had a right IJ thrombus which was part of the reason the patient had been brought in as well, apparently this was seen at the correction. Patient does have a history of previous IJ tunneled catheters for dialysis. Venous duplex upper extremity bilateral upper extremities completed which showed a positive DVT on the right lower internal jugular vein. Somewhat eccentric likely chronic in setting of reported previous right IJV DVT. Patient denies any pain in his neck no pain currently and his right upper extremity. Has full range of motion. Review of Systems A 14 point review systems was completed all pertinent positives and negatives as stated in the HPI. Past Medical History Past Medical History: Dialysis, Hypertension, Renal Disease Additional Past Medical History / Comment(s): kidney disease- dialysis t/t/s dialysis History of Any Multi-Drug Resistant Organisms: None Reported Additional Past Surgical History / Comment(s): fistula/graft lt arm, surgery on kidneys as an infant pt not sure exactly what was done, port rt chest placed w hen his fistula wasn't working. Past Anesthesia/Blood Transfusion Reactions: No Reported Reaction Past Psychological History: No Psychological Hx Reported Additional Psychological History / Comment(s): Pt resides with his mother. He uses no assistive device. He does not drive, his girlfriend takes him to appts. Smoking Status: Former smoker Past Alcohol Use History: None Reported Additional Past Alcohol Use History / Comment(s): Started smoking at ge 16, smokes 2-3 cigs per day Past Drug Use History: Marijuana Additional Drug Use History / Comment(s): Smokes marijuana daily-1 joint a day - Past Family History Mother Additional Family Medical History / Comment(s): bronchitis Father Family Medical History: Hypertension Medications and Allergies Home Medications Medication Instructions Recorded Confirmed Type Sevelamer [Renvela] 4,000 mg PO 5XD 09/21/17 08/04/22 History Cinacalcet HCl [Sensipar] 90 mg PO HS 04/20/22 08/04/22 History Famotidine [Pepcid] 10 mg PO DAILY #30 tab 08/08/22 Rx Allergies Allergy/AdvReac Type Severity Reaction Status Date / Time No Known Allergies Allergy Verified 08/04/22 15:31 Surgical - Exam Vital Signs Temp Pulse Resp BP Pulse Ox 98.0 F 57 L 20 137/62 100 08/04/22 14:37 08/04/22 14:37 08/04/22 14:37 08/04/22 14:37 08/04/22 14:37 General appearance: The patient is alert, oriented, appears in no acute dist ress. HET: Head is normocephalic and atraumatic. Pupils are equal and reactive. Neck: Supple without lymphadenopathy. Trachea midline. No audible carotid bruit. Heart: Regular. Lungs: Equal expansion, normal respiratory effort. Abdomen: Soft, nontender, nondistended. Extremities: Right upper extremity fistula with palpable thrill and audible bruit, nontender to palpation. Right side of neck nontender no swelling can see scarring from previous port access. Palpable radial pulse. Full range of motion. Neurological: No focal deficits. Alert and oriented 3. Results - Labs 08/09/22 04:33 08/09/22 04:33 Abnormal Lab Results - Last 24 Hours (Table) 08/08/22 08/08/22 08/09/22 Range/Units 07:18 16:38 04:33 MCV 102.1 H (80.0-100.0) fL Plt Count 118 L (150-450) k/uL APTT (22.0-30.0) sec Sodium 135 L (137-145) mmol/L Potassium 6.6 H* 5.5 H (3.5-5.1) mmol/L Chloride 93 L (98-107) mmol/L BUN 62 H (9-20) mg/dL Creatinine 16.55 H* (0.66-1.25) mg/dL Calcium 8.2 L (8.4-10.2) mg/dL 08/09/22 08/09/22 Range/Units 04:33 04:33 MCV (80.0-100.0) fL Plt Count (150-450) k/uL APTT 48.7 H (22.0-30.0) sec Sodium 135 L (137-145) mmol/L Potassium 5.5 H (3.5-5.1) mmol/L Chloride 94 L (98-107) mmol/L BUN 52 H (9-20) mg/dL Creatinine 13.95 H* (0.66-1.25) mg/dL Calcium (8.4-10.2) mg/dL Microbiology - Last 24 Hours (Table) 08/04/22 21:56 Blood Culture - Preliminary Blood No Growth after 96 hours Diabetes panel 08/08/22 08/08/22 08/09/22 Range/Units 07: 16:38 04:33 Sodium 135 L 135 L (137-145) mmol/L Potassium 6.6 H* 5.5 H 5.5 H (3.5-5.1) mmol/L Chloride 93 L 94 L (98-107) mmol/L Carbon Dioxide 28 27 (22-30) mmol/L BUN 62 H 52 H (9-20) mg/dL Creatinine 16.55 H* 13.95 H* (0.66-1.25) mg/dL Glucose 81 93 (74-99) mg/dL Calcium 8.2 L 9.3 (8.4-10.2) mg/dL Calcium panel 08/08/22 08/09/22 Range/Units 07:18 04:33 Calcium 8.2 L 9.3 (8.4-10.2) mg/dL Pituitary panel 08/08/22 08/08/22 08/09/22 Range/Units 07:18 16:38 04:33 Sodium 135 L 135 L (137-145) mmol/L Potassium 6.6 H* 5.5 H 5.5 H (3.5-5.1) mmol/L Chloride 93 L 94 L (98-107) mmol/L Carbon Dioxide 28 27 (22-30) mmol/L BUN 62 H 52 H (9-20) mg/dL Creatinine 16.55 H* 13.95 H* (0.66-1.25) mg/dL Glucose 81 93 (74-99) mg/dL Calcium 8.2 L 9.3 (8.4-10.2) mg/dL Adrenal panel 08/08/22 08/08/22 08/09/22 Range/Units 07:18 16:38 04:33 Sodium 135 L 135 L (137-145) mmol/L Potassium 6.6 H* 5.5 H 5.5 H (3.5-5.1) mmol/L Chloride 93 L 94 L (98-107) mmol/L Carbon Dioxide 28 27 (22-30) mmol/L BUN 62 H 52 H (9-20) mg/dL Creatinine 16.55 H* 13.95 H* (0.66-1.25) mg/dL Glucose 81 93 (74-99) mg/dL Calcium 8.2 L 9.3 (8.4-10.2) mg/dL Assessment and Plan Assessment: 1. 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 Right upper extremity fistula 3. End-stage renal disease Plan: Venous duplex of right upper extremity reviewed, chronic right IJ DVT. There is no indication for any vascular surgical intervention and no indication for anticoagulation. This was discussed with both the patient and the primary medicine team. Patient is cleared from vascular surgery for discharge. Heparin discontinued. For this consultation, we will sign off at this time. The impression and plan of care has been dictated as directed. I performed a history and examination of this patient, discussed the same with the dictator. I agree with the dictator's note ,documented as a scribe. Any additional findings or plans will be noted.
--- NOTE | 2022-08-09 11:42 | P.PN ---
Subjective Patient is seen in follow-up for end-stage renal disease. He is maintained on hemodialysis on Sunday schedule. Hemodynamically stable. Denies chest pain or shortness of breath. Tolerated 3.7 L ultrafiltration yesterday. Potassium improved. Vital signs are stable. General: No acute distress. HEENT: Head exam is unremarkable. LUNGS: No acute rhonchi or wheezes. HEART: Rate and Rhythm are regular. ABDOMEN: Nontender. EXTREMITITES: No edema. Objective - Vital Signs Vital signs: Vital Signs Temp 97.8 F 08/09/22 08:00 Pulse 86 08/09/22 08:00 Resp 18 08/09/22 08:00 BP 98/54 08/09/22 08:00 Pulse Ox 96 08/09/22 08:00 FiO2 Intake & Output 08/08/22 08/09/22 08/09/22 18:59 06:59 18:59 Intake Total 1828 470 Output Total 3700 Balance -1872 470 Weight 72.9 kg Intake: Oral 1078 470 Hemodialysis 750 Output: Hemodialysis 3700 Other: # Voids 0 - Labs CBC & Chem 7: 08/09/22 04:33 08/09/22 04:33 Labs: Abnormal Lab Results - Last 24 Hours (Table) 08/08/22 08/09/22 08/09/22 Range/Units 16:38 04:33 04:33 MCV 102.1 H (80.0-100.0) fL Plt Count 118 L (150-450) k/uL APTT (22.0-30.0) sec Sodium 135 L (137-145) mmol/L Potassium 5.5 H 5.5 H (3.5-5.1) mmol/L Chloride 94 L (98-107) mmol/L BUN 52 H (9-20) mg/dL Creatinine 13.95 H* (0.66-1.25) mg/dL 08/09/22 Range/Units 04:33 MCV (80.0-100.0) fL Plt Count (150-450) k/uL APTT 48.7 H (22.0-30.0) sec Sodium (137-145) mmol/L Potassium (3.5-5.1) mmol/L Chloride (98-107) mmol/L BUN (9-20) mg/dL Creatinine (0.66-1.25) mg/dL Microbiology - Last 24 Hours (Table) 08/04/22 21:56 Blood Culture - Preliminary Blood No Growth after 96 hours Assessment and Plan Plan: Assessment: 1. End-stage renal disease maintained on hemodialysis on Sunday schedule via AV fistula. 2. Hematoma versus resolving infiltration at the fistula site. Also concern for possible abscess. Being followed by vascular surgery and Infectious disease. 3. Hyperkalemia secondary to chronic kidney disease. Improved postdialysis. 4. 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 5. Hypertension with chronic kidney disease. Controlled. 6. Chronic right IJ DVT. Seen by surgical team. Plan: Hemodialysis tomorrow. Renal diet. Patient agreeable to try potassium binder. Add lokelma. Life-threatening risks of hyperkalemia including , have been discussed with patient. Possible discharge today.
[2022-08-09] MEDS ORDERED: SODIUM ZIRCONIUM CYCLOSILICATE 10 GM PACKET PO SCH (11:45)
[2022-08-09 14:17] VITALS: BMI 22.4
--- NOTE | 2022-08-10 22:03 | P.DS ---
Providers Date of admission: 08/04/22 20:09 Attending physician: Marcellus Saldaña MD Consults: 08/04/22 19:14 Consult Physician Routine Consulting Provider: Samantha Leone Consult Reason/Comments: hyperkalemia Do you want consulting provider notified?: Already Contacted 08/05/22 07:06 Consult Physician Routine Consulting Provider: Sherrill Goss Consult Reason/Comments: right arm cellulitis Do you want consulting provider notified?: Yes 08/08/22 19:39 Consult Physician Routine Consulting Provider: Radha Garcia Consult Reason/Comments: Right IJ DVT Do you want consulting provider notified?: Yes, Notify in am Primary care physician: Stated None Hospital Course: Final Diagnosis Right arm pain Right upper extremity complex collection could be hematoma versus abscess versus collection of foreign material, measuring 4.7 x 2.2 x 2.4 cm, Surrounding cellulitis suspected with elevated pro-calcitonin. Treated with IV Vancomycin. End stage renal disease on hemodialysis Hyperkalemia secondary to above Right internal jugular DVT chronic in nature, endothelialized. Vascular evaluation and no current recommendations for anticoagulation. Hypertension Full Code Discharge Disposition Patient is stable for discharge to return to [facility]. Patient to continue on hemodialysis //Sun. Recommend follow up with vascular in 1 weeks time to monitor AV fistula site. Patient has been evaluated by vascular services and no recommendations for anticoagulation on discharge. Patient agreeing to take lokelma 10 mg TID for the elevated potassium and 10 day script is given and recommend to follow up labs to monitor serum potassium level. Hospital Course This is a pleasant -French 42 years old male who was sent from [facility] for medical attention. He has history of hypertension and chronic kidney disease/end-stage kidney disease on hemodialysis Sunday and Sunday. Patient presents with complaints of right upper arm pain adjacent to the AV fistula and is noted to have swelling and surrounding erythema with concern for cellulitis. He did have elevated procalcitonin level and ID was consulted patient was treated with IV vancomycin while inpatient. Patient did have ultras ound done of the right upper arm which reveals Right upper extremity complex collection could be hematoma versus abscess versus collection of foreign material, measuring 4.7 x 2.2 x 2.4 cm. Patient was evaluated by vascular surgery and likely this is felt to be a resolving hematoma. Patient denies any injections to the area to account for the complex collection. There is concern for abscess however vascular did not feel abscess was likely and I&D not performed. He had no leukocytosis this admission. Blood culture was negative. Initial labwork reveals potassium level of 7.2, creatinine level of 14.12, procalcitonin level of 0.42. Nephrology followed with patient and patient was dialyzed and did receive extra sessions secondary to persistent hyperkalemia. Patient had no EKG changes. Patient initially had refused to take potassium binders however on day of discharge did agree to take the lokelma TID. There was concern that an ultrasound performed prior to admission revealed a DVT in the right IJ which was the main reason patient was sent in for medical evaluation. A repeat ultrasound was performed revealing a thrombus in the right lower internal jugular vein. This is somewhat eccentric and likely chronic in the setting of the reported previous right IJ DVT. Vascular was reconsulted and felt this is not an acute DVT and based on imaging chronic in nature and patient does not require anticoagulation on discharge. Patients potassium has improved to 5.5, creatinine level is stable at 13.95. Patient has been cleared by nephrology, vascular, and ID services and patient has been discharged. Please see medication reconciliation for a list of current medication. Thank you for allowing us to participate in the care of this patient. The impression and plan of care has been dictated by Lesli Lei, Nurse Practitioner as directed. Dr. Kvng MD I have performed a history and physical examination and medical decision making of this patient, discussed the same with the dictator, and agree with the dictators assessment and plan as written, documented as a scribe. Based on total visit time, I have performed more than 50% of this visit. Patient Condition at Discharge: Fair Plan - Discharge Summary Discharge Rx Participant: No New Discharge Prescriptions: New Famotidine [Pepcid] 10 mg PO DAILY #30 tab Sodium Zirconium Cyclosilicate [Lokelma] 10 gm PO TID 10 Days #30 packet Continue Sevelamer [Renvela] 4,000 mg PO 5XD Cinacalcet HCl [Sensipar] 90 mg PO HS Discontinued cloNIDine HCL [Catapres] 0.2 mg PO TID Omeprazole 20 mg PO DAILY amLODIPine [Norvasc] 10 mg PO DAILY Discharge Medication List Sevelamer [Renvela] 4,000 mg PO 5XD 09/21/17 [History] Cinacalcet HCl [Sensipar] 90 mg PO HS 04/20/22 [History] Famotidine [Pepcid] 10 mg PO DAILY #30 tab 08/08/22 [Rx] Sodium Zirconium Cyclosilicate [Lokelma] 10 gm PO TID 10 Days #30 packet 08/09/22 [Rx] Follow up Appointment(s)/Referral(s): None,Stated [Primary Care Provider] - 1-2 days Ambulatory/Diagnostic Orders: Basic Metabolic Panel [LAB.AMB] Time Frame: 3 Days, Location: None Selected Magnesium [LAB.AMB] Location: None Selected Activity/Diet/Wound Care/Special Instructions: Patient needs to follow up with vascular surgery outpatient to monitor right AV fistula in upper arm. No recommendations for anticoagulation on discharge, Vascular surgery evaluated the patient and felt the Right IJ DVT is chronic in nature Continue hemodialysis Sun//Sunday Repeat labs in 1 week Follow up nephrology and also primary provider Continue lokelma 10 mg three times a day, 10 day script is given on discharge and recommend to repeat labs and monitor potassium level. Discharge Disposition: HOME SELF-CARE
== END 2022-08-09 14:38 | disposition home or self-care (01) | DRG 602 ==
LOC: EC 14:19 → 3SCARD 20:09
PROVIDERS: ADMIT Internal Medicine; ATTEND Internal Medicine
PROC: 5A1D70Z Performance of Urinary Filtration, Intermittent, Less than 6 Hours Per Day (ICD-10-PCS; principal; 2022-08-04)
DX: L03.113 Cellulitis of right upper limb (principal); N18.6 End stage renal disease; I82.C21 Chronic embolism and thrombosis of right internal jugular vein; I12.0 Hypertensive chronic kidney disease with stage 5 chronic kidney disease or end stage renal disease; E83.9 Disorder of mineral metabolism, unspecified; E87.5 Hyperkalemia; L02.413 Cutaneous abscess of right upper limb; Z99.2 Dependence on renal dialysis; Z28.311 Partially vaccinated for COVID-19; Z28.21 Immunization not carried out because of patient refusal; Z71.3 Dietary counseling and surveillance; Z79.899 Other long term (current) drug therapy; Z82.49 Family history of ischemic heart disease and other diseases of the circulatory system; Z86.718 Personal history of other venous thrombosis and embolism; Z87.891 Personal history of nicotine dependence
CPT/HCPCS: 36415; 80048; 80202; 84132; 84145; 85025; 85610; 85730; 87040; 90935; 93005; 93970; 94640; 96365; 96366; 96375; 99291